=== PATIENT | female | born 1955 | race Caucasian/White ===

== ENCOUNTER 2018-08-02 14:55 | Emergency (ER) | payer MEDICARE, OTHER ==
[~2018-08-02] VITALS: Ht 172.7 cm; Wt 127.9 kg
--- OUTSIDE RECORDS SUMMARY | 2018-08-02 15:02 | XMS REPORT | CCD ---
Author Author Lorna Solis Organization Lorna Solis MD, [facility] Address [address] [place] [address] Phone Care Team Providers Care Property Management Accountant Name Role Phone PP Unavailable CCM Unavailable Summary Purpose Interface Exchange Insurance Providers Payer name Policy type / Coverage type Covered democrat ID Effective Begin Date Effective End Date [employer] PPO Medicare Part B [id number] Unknown Family history Father Diagnosis Age At Onset kidney disease Unknown Diabetes mellitus Type 2 Unknown Hypertension Unknown Mother Diagnosis Age At Onset Coronary Artery Disease Unknown Cancer Unknown Stroke Unknown Diabetes mellitus Type 2 Unknown Social History Social History Element Codes Description Effective Dates Marital status Unknown Han 04/12/2018 Number of children Unknown 4 04/12/2018 Employment Unknown Currently unemployed 04/12/[address]: 226[address]993 Never smoker 04/12/[address]: 245360601 Never drinks alcohol 04/12/2018 Allergies, Adverse Reactions, Alerts Substance Reaction Codes Entered Date Inactivated Date Status amoxicillin RxNorm: 723 04/12/2018 No Inactive Date Active bactrim RxNorm: 948888 04/12/2018 No Inactive Date Active * NO KNOWN DRUG ALLERGIES Unknown 04/12/2018 No Inactive Date Active ciprofloxacin RxNorm: 70417 04/12/2018 No Inactive Date Active Levaquin RxNorm: 39927 04/12/2018 No Inactive Date Active SULFA (SULFONAMIDE ANTIBIOTICS) Unknown 04/12/2018 No Inactive Date Active Past Medical History Illness Codes Condition Status Onset Date Resolved Date Essential (primary) hypertension ICD-9: 401.1 ICD-10: I10 Active 04/12/2018 Unknown Pain in left finger(s) ICD-9: 729.5 ICD-10: M79.645 Active 04/12/2018 Unknown Pain in right finger(s) ICD-9: 729.5 ICD-10: M79.644 Active 04/12/2018 Unknown Atrophy of thyroid (acquired) ICD-9: 244.8 ICD-10: E03.4 Active 04/12/2018 Unknown Mixed hyperlipidemia ICD-9: 272.2 ICD-10: E78.2 Active 04/12/2018 Unknown 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 Active 04/12/2018 Unknown Problems Condition Codes Effective Dates Condition Status Essential (primary) hypertension ICD-9: 401.1 ICD-10: I10 04/12/2018 Active Pain in left finger(s) ICD-9: 729.5 ICD-10: M79.645 04/12/2018 Active Pain in right finger(s) ICD-9: 729.5 ICD-10: M79.644 04/12/2018 Active Atrophy of thyroid (acquired) ICD-9: 244.8 ICD-10: E03.4 04/12/2018 Active Mixed hyperlipidemia ICD-9: 272.2 ICD-10: E78.2 04/12/2018 Active 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 04/12/2018 Active Medications Medication Codes Instructions Start Date Stop Date Status Fill Instructions lisinopril 20 mg-hydrochlorothiazide 12.5 mg tablet RxNorm: 190992 1 Tablet(s) PO BID 06/14/2018 06/08/2019 Active fluorouracil 5 % topical cream RxNorm: 014678 1 Application TOP BID 06/14/2018 06/23/2018 Active levothyroxine 175 mcg tablet RxNorm: 651336 1 Tablet(s) PO every other day wednesday/ wednesday/sat/sun 04/12/2018 04/06/2019 Active montelukast 10 mg tablet RxNorm: 117615 1 Tablet(s) PO daily 04/06/2019 Active ibuprofen 600 mg tablet RxNorm: 813013 1 Tablet(s) PO TID 04/1204/06/2019 Active levothyroxine 150 mcg tablet RxNorm: 171646 1 Tablet(s) PO TIW 04/12/2018 04/06/2019 Active amlodipine 5 mg tablet RxNorm: 444963 1 Tablet(s) PO daily 06/201804/06/2019 Active allopurinol 300 mg tablet RxNorm: 398234 1 Tablet(s) PO daily 04/12/2018 04/06/2019 Active ibuprofen 600 mg tablet RxNorm: 245714 1 Tablet(s) PO TID 04/1204/11/2018 Inactive lisinopril 20 mg-hydrochlorothiazide 12.5 mg tablet RxNorm: 796216 1 Tablet(s) PO daily 04/12/2018 04/11/2018 Inactive lisinopril 20 mg-hydrochlorothiazide 12.5 mg tablet RxNorm: 849938 1 Tablet(s) PO daily 04/12/2018 06/13/2018 Inactive amlodipine 5 mg tablet RxNorm: 741195 1 Tablet(s) PO daily 06/201804/11/2018 Inactive allopurinol 300 mg tablet RxNorm: 797166 1 Tablet(s) PO daily 04/12/2018 04/11/2018 Inactive garlic 1,000 mg capsule RxNorm: 530029 1 Capsule(s) PO daily No Start Date Active Hair,Skin,Nails with Biotin 7.5 mg-7.5 unit-1,250 mcg chewable tablet RxNorm: 1 Tablet(s) PO daily No Start Date Active Baby Aspirin 81 mg chewable tablet RxNorm: 868566 3 Tablet(s) PO daily No Start Date Active levothyroxine 150 mcg tablet RxNorm: 816400 wed and 175 wed sun Tablet(s) PO No Start Date 04/11/2018 Inactive montelukast 10 mg tablet RxNorm: 065675 1 Tablet(s) PO daily No Start Date 04/11/2018 Inactive Fish Oil 1,000 mg capsule RxNorm: 4 Capsule(s) PO daily No Start Date 04/11/2018 Inactive Medication Administered No Medication Administered data Immunizations Vaccine Codes Date Status Tetanus, Diptheria, Pertussis CVX: 113 completed Tetanus/Diptheria CVX: 113 05/19/2017 completed Assessments Condition Codes Effective Dates Pain in right finger(s) ICD-10: M79.644 ICD-9: 729.5 06/14/2018 Essential (primary) hypertension ICD-10: I10 ICD-9: 401.1 06/14/2018 Pain in left finger(s) ICD-10: M79.645 ICD-9: 729.5 06/14/2018 Mixed hyperlipidemia ICD-10: E78.2 ICD-9: 272.2 04/12/2018 Atrophy of thyroid (acquired) ICD-10: E03.4 ICD-9: 244.8 04/12/2018 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 ICD-9: 277.2 04/12/2018 Reason For Visit Reason For Visit Effective Dates Notes hypertension 06/14/2018 urinary urgency 04/12/2018 Results Observation Observation Code Item Item Code Result Date Free T4 Mlf359 FREE T4 1.13 ng/dL 04/12/2018 Comp Metabolic Lzz870 NA 141 mEq/L 04/12/2018 Comp Metabolic Ikk692 K 4.4 mEq/L 04/12/2018 Comp Metabolic Nfy812 CL 103 mEq/L 04/12/2018 Comp Metabolic Qxp309 CO2 31.0 mEq/L 04/12/2018 Comp Metabolic Slc287 ANION GAP 11 04/12/2018 Comp Metabolic Vjn772 GLUCOSE 98 mg/dL 04/12/2018 Comp Metabolic Ngi087 Creat 0.7 mg/dL 04/12/2018 Comp Metabolic Rlb706 eGFR 84 ml/min/1.73m2 04/12/2018 Comp Metabolic Itg035 BUN 17 mg/dL 04/12/2018 Comp Metabolic Eiv790 B/C Ratio 23.0 Ratio 04/12/2018 Comp Metabolic Ghp403 CALCIUM 10.0 mg/dL 04/12/2018 Comp Metabolic Gxm118 ALK PHOS 70 U/L 04/12/2018 Comp Metabolic Nzz799 AST(SGOT) 40 U/L 04/12/2018 Comp Metabolic Aec474 ALT(SGPT) 48 U/L 04/12/2018 Comp Metabolic Trf446 BILI T 0.4 mg/dL 04/12/2018 Comp Metabolic Ykx313 ALBUMIN 4.2 g/dL 04/12/2018 Comp Metabolic Ixk055 TPRO 6.9 g/dL 04/12/2018 Comp Metabolic Kbn233 GLOB 2.7 g/dL 04/12/2018 Comp Metabolic Tib897 A/G Ratio 1.6 Ratio 04/12/2018 Comp Metabolic Pfm520 Osmo 283 mOsmo 04/12/2018 Uric Acid Ord77 Uric A 5.7 mg/dL 04/12/2018 Cbc With Differential Ord2 WBC 5.20 K/ul 04/12/2018 Cbc With Differential Ord2 RBC 4.19 M/ul 04/12/2018 Cbc With Differential Ord2 HGB 12.3 g/dl 04/12/2018 Cbc With Differential Ord2 Neut% 45.8 % 04/12/2018 Cbc With Differential Ord2 HCT 38.4 % 04/12/2018 Cbc With Differential Ord2 MCV 91.6 fl 04/12/2018 Cbc With Differential Ord2 Lymph% 38.8 % 04/12/2018 Cbc With Differential Ord2 MCH 29.4 pg 04/12/2018 Cbc With Differential Ord2 Fountain% 12.3 % 04/12/2018 Cbc With Differential Ord2 MCHC 32.0 pg 04/12/2018 Cbc With Differential Ord2 Eos% 2.5 % 04/12/2018 Cbc With Differential Ord2 PLT 304 K/ul 04/12/2018 Cbc With Differential Ord2 Baso% 0.6 % 04/12/2018 Cbc With Differential Ord2 RDW 15.7 % 04/12/2018 Cbc With Differential Ord2 Neut ABS# 2.38 K/ul 04/12/2018 Cbc With Differential Ord2 Lymph ABS# 2.02 K/ul 04/12/2018 Cbc With Differential Ord2 Fountain ABS# 0.6 K/ul 04/12/2018 Cbc With Differential Ord2 Eos ABS# 0.1 K/ul 04/12/2018 Cbc With Differential Ord2 Baso ABS# 0.0 K/ul 04/12/2018 Tsh Ord6 TSH (3rd IS) 0.83 uIU/mL 04/12/2018 Lipid Ord30 CHOL 188 mg/dL 04/12/2018 Lipid Ord30 HDL 45.0 mg/dl 04/12/2018 Lipid Ord30 TRIG 174 mg/dL 04/12/2018 Lipid Ord30 LDL 108 mg/dL 04/12/2018 Lipid Ord30 C/HDL 4.2 Ratio 04/12/2018 Review of Systems System Result Effective Dates Constitutional No recent illness 2017 Constitutional No chills 06/14/2018 Constitutional fatigue 06/14/2018 Constitutional No fever 06/14/2018 Constitutional No insomnia 06/14/2018 Constitutional No malaise 06/14/2018 Constitutional obesity 06/14/2018 Eyes No vision change 06/14/2018 Ears/Nose/Throat/Neck No dizziness 2017 Ears/Nose/Throat/Neck No dysphagia 2017 Ears/Nose/Throat/Neck No headache 2017 Ears/Nose/Throat/Neck No hearing loss Ears/Nose/Throat/Neck nasal allergies Ears/Nose/Throat/Neck No sore throat Ears/Nose/Throat/Neck sinus congestion Cardiovascular No chest pain/pressure Cardiovascular No dyspnea 06/14/2018 Cardiovascular No edema 06/14/2018 Cardiovascular No exercise intolerance Cardiovascular No fatigue 06/14/2018 Cardiovascular No near-syncope/dizziness 06/14/2018 Respiratory No chest tightness 2017 Respiratory No cough 06/14/2018 Respiratory No dyspnea 06/14/2018 Respiratory No pedal edema 06/14/2018 Gastrointestinal No abdominal pain 2017 Gastrointestinal No constipation 2017 Gastrointestinal No diarrhea 06/14/2018 Gastrointestinal No gastroesophageal reflux 06/14/2018 Gastrointestinal No nausea 06/14/2018 Gastrointestinal No vomiting 06/14/2018 Genitourinary/Nephrology No dysuria 06/14 Genitourinary/Nephrology No nocturia Genitourinary/Nephrology urinary urgency 06/14/2018 Genitourinary/Nephrology urinary frequency 06/14/2018 Genitourinary/Nephrology No urinary incontinence 06/14/2018 Musculoskeletal stiffness 06/14/2018 Musculoskeletal swelling 06/14/2018 Musculoskeletal arthralgia(s) 06/14/2018 Musculoskeletal muscle weakness 2017 Musculoskeletal No myalgias 06/14/2018 Dermatologic No rash 06/14/2018 Dermatologic No sores 06/14/2018 Neurologic No dizziness 06/14/2018 Neurologic No headache 06/14/2018 Neurologic No neck pain 06/14/2018 Neurologic No syncope 06/14/2018 Psychiatric No anxiety 06/14/2018 Psychiatric No depression 06/14/2018 Constitutional No recent illness 2017 Constitutional No chills 04/12/2018 Constitutional fatigue 04/12/2018 Constitutional No fever 04/12/2018 Constitutional No insomnia 04/12/2018 Constitutional No malaise 04/12/2018 Eyes No vision change 04/12/2018 Ears/Nose/Throat/Neck No dizziness 2017 Ears/Nose/Throat/Neck No dysphagia 2017 Ears/Nose/Throat/Neck No headache 2017 Ears/Nose/Throat/Neck No hearing loss 06/2018 Ears/Nose/Throat/Neck nasal allergies 06/2018 Ears/Nose/Throat/Neck No sore throat 06/2018 Ears/Nose/Throat/Neck sinus congestion Cardiovascular No chest pain/pressure 06/2018 Cardiovascular No dyspnea 04/12/2018 Cardiovascular No edema 04/12/2018 Cardiovascular No exercise intolerance Cardiovascular No fatigue 04/12/2018 Cardiovascular No near-syncope/dizziness 04/12/2018 Respiratory No chest tightness 2017 Respiratory No cough 04/12/2018 Respiratory No dyspnea 04/12/2018 Respiratory No pedal edema 04/12/2018 Gastrointestinal No abdominal pain 2017 Gastrointestinal No constipation 2017 Gastrointestinal No diarrhea 04/12/2018 Gastrointestinal No gastroesophageal reflux 04/12/2018 Gastrointestinal No nausea 04/12/2018 Gastrointestinal No vomiting 04/12/2018 Genitourinary/Nephrology No dysuria 04/12 Genitourinary/Nephrology No nocturia 06/2018 Genitourinary/Nephrology No urinary incontinence 04/12/2018 Musculoskeletal stiffness 04/12/2018 Musculoskeletal swelling 04/12/2018 Musculoskeletal muscle weakness 2017 Musculoskeletal No myalgias 04/12/2018 Dermatologic No rash 04/12/2018 Dermatologic No sores 04/12/2018 Neurologic No dizziness 04/12/2018 Neurologic No headache 04/12/2018 Neurologic No neck pain 04/12/2018 Neurologic No syncope 04/12/2018 Psychiatric No anxiety 04/12/2018 Psychiatric No depression 04/12/2018 Musculoskeletal arthralgia(s) 04/12/2018 Constitutional obesity 04/12/2018 Genitourinary/Nephrology urinary frequency 04/12/2018 Genitourinary/Nephrology urinary urgency 04/12/2018 Physical Exam Exam Name System Name Item Name Status Result Effective Dates Notes Full Exam - General 1994 Constitutional general appearance Development: well developed 06/14/2018 None Full Exam - General 1994 Constitutional general appearance Development: appears stated age 1106/14/2018 None Full Exam - General 1994 Constitutional general appearance Hygiene/Attention to Grooming: good hygiene 06/14/2018 None Full Exam - General 1994 Eyes conjunctiva /eyelids Overall: conjunctiva clear 06/14/2018 None Full Exam - General 1994 Eyes conjunctiva /eyelids Overall: cornea clear 06/14/2018 None Full Exam - General 1994 Eyes conjunctiva /eyelids Overall: eyelids normal 06/14/2018 None Full Exam - General 1994 Eyes pupils and irises Overall: pupils equal, round, reactive to light and accomodation 06/14/2018 None Full Exam - General 1994 Ears/Nose/Throat otoscopic exam Overall: external auditory canals clear 06/14/2018 None Full Exam - General 1994 Ears/Nose/Throat otoscopic exam Overall: tympanic membranes clear 06/14/2018 None Full Exam - General 1994 Ears/Nose/Throat lips/teeth/gingiva Overall: benign lips 06/14/2018 None Full Exam - General 1994 Ears/Nose/Throat lips/teeth/gingiva Overall: normal dentition 06/14/2018 None Full Exam - General 1994 Ears/Nose/Throat oral cavity/pharynx/larynx Overall: oral mucosa clear 06/14/2018 None Full Exam - General 1994 Ears/Nose/Throat oral cavity/pharynx/larynx Overall: oropharyngeal mucosa clear 06/14/2018 None Full Exam - General 1994 Ears/Nose/Throat oral cavity/pharynx/larynx Overall: hypopharynx benign 06/14/2018 None Full Exam - General 1994 Ears/Nose/Throat oral cavity/pharynx/larynx Overall: no masses 06/14/2018 None Full Exam - General 1994 Respiratory auscultation Overall: breath sounds clear bilaterally 06/14/2018 None Full Exam - General 1994 Respiratory respiratory effort/rhythm Overall: no retractions 06/14/2018 None Full Exam - General 1994 Respiratory respiratory effort/rhythm Overall: normal rate 06/14/2018 None Full Exam - General 1994 Cardiovascular extremities Overall: no clubbing 06/14/2018 None Full Exam - General 1994 Cardiovascular auscultation of heart Overall: regular rate 06/14/2018 None Full Exam - General 1994 Cardiovascular auscultation of heart Overall: normal heart sounds 06/14/2018 None Full Exam - General 1994 Abdomen abdominal exam Overall: no tenderness 06/14/2018 None Full Exam - General 1994 Abdomen abdominal exam Overall: normal bowel sounds 06/14/2018 None Full Exam - General 1994 Lymphatic neck nodes Overall: anterior cervical chain benign 06/14/2018 None Full Exam - General 1994 Lymphatic neck nodes Overall: posterior cervical chain benign 06/14/2018 None Full Exam - General 1994 Musculoskeletal upper extremity Inspection - carpals: swelling 06/14/2018 None Full Exam - General 1994 Musculoskeletal spine, ribs and pelvis Overall: spine benign 06/14/2018 None Full Exam - General 1994 Musculoskeletal spine, ribs and pelvis Overall: sacroiliac joint benign 06/14/2018 None Full Exam - General 1994 Musculoskeletal spine, ribs and pelvis Overall: good posture 06/14/2018 None Full Exam - General 1994 Musculoskeletal head and neck Overall: head atraumatic 06/14/2018 None Full Exam - General 1994 Musculoskeletal head and neck Overall: cervical spine benign 06/14/2018 None Full Exam - General 1994 Integument inspection of skin Overall: few scattered moles, no gross abnormalities 06/14/2018 None Full Exam - General 1994 Neurologic deep tendon reflexes Overall: deep tendon reflexes intact 06/14/2018 None Full Exam - General 1994 Neurologic cranial nerves Overall: crainial nerves 2 - 12 grossly intact 06/14/2018 None Full Exam - General 1994 Psychiatric orientation/consciousness Overall: oriented to person, place and time 06/14/2018 None Full Exam - General 1994 Psychiatric mood and affect Overall: normal mood and affect 06/14/2018 None Full Exam - General 1994 Constitutional general appearance Development: well developed 04/12/2018 None Full Exam - General 1994 Constitutional general appearance Development: appears stated age 0904/12/2018 None Full Exam - General 1994 Constitutional general appearance Hygiene/Attention to Grooming: good hygiene 04/12/2018 None Full Exam - General 1994 Eyes conjunctiva /eyelids Overall: conjunctiva clear 04/12/2018 None Full Exam - General 1994 Eyes conjunctiva /eyelids Overall: cornea clear 04/12/2018 None Full Exam - General 1994 Eyes conjunctiva /eyelids Overall: eyelids normal 04/12/2018 None Full Exam - General 1994 Eyes pupils and irises Overall: pupils equal, round, reactive to light and accomodation 04/12/2018 None Full Exam - General 1994 Ears/Nose/Throat otoscopic exam Overall: external auditory canals clear 04/12/2018 None Full Exam - General 1994 Ears/Nose/Throat otoscopic exam Overall: tympanic membranes clear 04/12/2018 None Full Exam - General 1994 Ears/Nose/Throat lips/teeth/gingiva Overall: benign lips 04/12/2018 None Full Exam - General 1994 Ears/Nose/Throat lips/teeth/gingiva Overall: normal dentition 04/12/2018 None Full Exam - General 1994 Ears/Nose/Throat oral cavity/pharynx/larynx Overall: oral mucosa clear 04/12/2018 None Full Exam - General 1994 Ears/Nose/Throat oral cavity/pharynx/larynx Overall: oropharyngeal mucosa clear 04/12/2018 None Full Exam - General 1994 Ears/Nose/Throat oral cavity/pharynx/larynx Overall: hypopharynx benign 04/12/2018 None Full Exam - General 1994 Ears/Nose/Throat oral cavity/pharynx/larynx Overall: no masses 04/12/2018 None Full Exam - General 1994 Respiratory auscultation Overall: breath sounds clear bilaterally 04/12/2018 None Full Exam - General 1994 Respiratory respiratory effort/rhythm Overall: no retractions 04/12/2018 None Full Exam - General 1994 Respiratory respiratory effort/rhythm Overall: normal rate 04/12/2018 None Full Exam - General 1994 Cardiovascular extremities Overall: no clubbing 04/12/2018 None Full Exam - General 1994 Cardiovascular auscultation of heart Overall: regular rate 04/12/2018 None Full Exam - General 1994 Cardiovascular auscultation of heart Overall: normal heart sounds 04/12/2018 None Full Exam - General 1994 Abdomen abdominal exam Overall: no tenderness 04/12/2018 None Full Exam - General 1994 Abdomen abdominal exam Overall: normal bowel sounds 04/12/2018 None Full Exam - General 1994 Lymphatic neck nodes Overall: anterior cervical chain benign 04/12/2018 None Full Exam - General 1994 Lymphatic neck nodes Overall: posterior cervical chain benign 04/12/2018 None Full Exam - General 1994 Musculoskeletal spine, ribs and pelvis Overall: spine benign 04/12/2018 None Full Exam - General 1994 Musculoskeletal spine, ribs and pelvis Overall: sacroiliac joint benign 04/12/2018 None Full Exam - General 1994 Musculoskeletal spine, ribs and pelvis Overall: good posture 04/12/2018 None Full Exam - General 1994 Musculoskeletal head and neck Overall: head atraumatic 04/12/2018 None Full Exam - General 1994 Musculoskeletal head and neck Overall: cervical spine benign 04/12/2018 None Full Exam - General 1994 Integument inspection of skin Overall: few scattered moles, no gross abnormalities 04/12/2018 None Full Exam - General 1994 Neurologic deep tendon reflexes Overall: deep tendon reflexes intact 04/12/2018 None Full Exam - General 1994 Neurologic cranial nerves Overall: crainial nerves 2 - 12 grossly intact 04/12/2018 None Full Exam - General 1994 Psychiatric orientation/consciousness Overall: oriented to person, place and time 04/12/2018 None Full Exam - General 1994 Psychiatric mood and affect Overall: normal mood and affect 04/12/2018 None Full Exam - General 1994 Musculoskeletal upper extremity Inspection - carpals: swelling 04/12/2018 None Procedures No Procedures data Vital Signs Date Vital 06/14/2018 Blood Pressure 1: 136/84 Code : 8480-6 BMI: 43.8 Code : 72709-3 Heart Rate 1 : 73 bpm Height: 5'8" SpO2: 96% Weight: 288 lbs 04/12/2018 Blood Pressure 1: 138/86 Code : 8480-6 BMI: 43.0 Code : 81091-0 Heart Rate 1 : 61 bpm Height: 5'8" SpO2: 97% Weight: 283 lbs Functional Status No Functional Status data History of Present Illness Symptom Name Status Result Effective Date Notes hypertension Onset and Resolution ongoing 06/14/2018 None hypertension Onset of Symptom during adulthood 06/14/2018 None gout Location Right Hand 06/14/2018 None gout Location Left Hand 06/14/2018 None gout Quality aching None urinary urgency Quality constant 04/12/2018 None urinary urgency Onset of Symptom 1 months ago 04/12/2018 None urinary frequency Quality constant 04/12/2018 None urinary frequency Onset and Resolution sudden in onset 04/12/2018 None Advance Directives No Advance Directive data Encounters Encounter Performer Location Codes Date ([id number] EST. 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 Pt has been encouraged to exercise daily. The pt has been advised to call the office if there are any acute concerns about change in blood pressure readings at home. Hand pain - referral to Dr. Oliveira for bilateral hand pain/thumb pain. 06/14/2018 Patient Education: Patient Medication Summary Completed 06/14/2018 Care Plan: Referral Order SNOMED-CT : [id number] Pending 06/14/2018 Appointment: Lorna Solis WPtel: [phone] [facility] New Patient 04/19/2018 Visit Plan: Hypertension - well controlled - continue with current medications, continue with no added salt diet. Pt has been encouraged to exercise daily. The pt has been advised to call the office if there are any acute concerns about change in blood pressure readings at home. Hypothyroidism - pt with chronic hypothyroidism, continue with current medication, will monitor pt to signs or symptoms of lack of adequate supplementation. Pt is to continue with current dose of medication unless directed otherwise. Check labs at regular intervals q 3 months or q 6 months based on previous levels of control. Hyperlipidemia - cut back on fat in diet - stop fish oil, monitor symptoms. Gout- discussed with pt - need to increase veggies in diet, cut back on pork, stop fish oil, cut out tuna, and check uric acid level now and again in 2 months once she has stopped the fish oil and increased healthy food choices - Gout hand out given to patient today. 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 Hypertension - well controlled - continue with current medications, continue with no added salt diet. Pt has been encouraged to exercise daily. The pt has been advised to call the office if there are any acute concerns about change in blood pressure readings at home. Hypothyroidism - pt with chronic hypothyroidism, continue with current medication, will monitor pt to signs or symptoms of lack of adequate supplementation. Pt is to continue with current dose of medication unless directed otherwise. Check labs at regular intervals q 3 months or q 6 months based on previous levels of control. Hyperlipidemia - cut back on fat in diet - stop fish oil, monitor symptoms. Gout- discussed with pt - need to increase veggies in diet, cut back on pork, stop fish oil, cut out tuna, and check uric acid level now and again in 2 months once she has stopped the fish oil and increased healthy food choices - Gout hand out given to patient today. . Hypertension - well controlled - continue with current medications, continue with no added salt diet. Pt has been encouraged to exercise daily. The pt has been advised to call the office if there are any acute concerns about change in blood pressure readings at home. Hand pain - referral to Dr. lOiveira for bilateral hand pain/thumb pain.
[2018-08-02] MEDS ORDERED: OMG1KC PO (15:24)
[2018-08-02] MEDS ORDERED: LEVO175T5 PO (15:24)
[2018-08-02] MEDS ORDERED: LISI1TAB8 PO ×2 (15:24)
[2018-08-02] MEDS ORDERED: LEVO150T6 PO (15:24)
[2018-08-02] MEDS ORDERED: ASPI-586 PO (15:24)
[2018-08-02] MEDS ORDERED: ALLO300T2 PO (15:24)
[2018-08-02] MEDS ORDERED: GARL1TAB2 PO (15:24)
--- NOTE | 2018-08-02 16:03 | ED Cough/URI ---
General Chief Complaint: Cough/Cold/Flu Symptoms Stated Complaint: FLU SYMPTOMS Nursing Triage Note: PT PRESENTS TO ED WITH COMPLAINTS OF SOA/COUGH/COLD/FLU S/S SINCE 07/28/18. REPORTS WAS IN [place] TO SEE RELATIVES AND WAS EXPOSED TO FLU POS RELATIVE. Source: patient Exam Limitations: no limitations History of Present Illness Date Seen by Provider: Aug 02, 2018 Time Seen by Provider: 16:03 Initial Comments 63 yo female patient presents with c/o cough, chest congestion, wheezing, slight sore throat, nasal congestion, and rhinorrhea beginning 07/28/18. she did develop a fever last night. Patient does have a history of asthma as a child. She reports she was exposed to the flu 1 wk ago and while in [place] visiting family. She denies getting a flu vaccination this year. Timing/Duration: getting worse Severity/Quality: productive cough (clear) Prior Episodes/Possible Cause: no prior episodes Modifying Factors: Worse With Coughing Allergies and Home Medications Allergies Coded Allergies: ciprofloxacin (Verified Allergy, Unknown, 08/02/18) levofloxacin (Verified Allergy, Unknown, 08/02/18) losartan (Verified Allergy, Unknown, 08/02/18) sulfamethoxazole (Verified Allergy, Unknown, 08/02/18) trimethoprim (Verified Allergy, Unknown, 08/02/18) Home Medications Albuterol Sulfate 18 Gm Hfa.aer.ad, 2 PUFF INH Q4H PRN for WHEEZING Prescribed by: KIRBY TORO on 08/02/181623 Lisinopril/Hydrochlorothiazide 1 Each Tablet, 1 EACH PO DAILY, (Reported) Lisinopril/Hydrochlorothiazide 1 Each Tablet, 1 EACH PO BID, (Reported) Ondansetron 8 Mg Tab.rapdis, 8 MG PO Q6H PRN for NAUSEA/VOMITING Prescribed by: KIRBY TORO on 08/02/18 162 Oseltamivir Phosphate 75 Mg Cap, 75 MG PO BID Prescribed by: KIRBY TORO on 08/02/181623 Prednisone 20 Mg Tab, 40 MG PO DAILY Prescribed by: KIRBY TORO on 08/02/181623 Patient Home Medication List Home Medication List Reviewed: Yes Review of Systems Review of Systems Constitutional: chills, fever, malaise EENTM: nose congestion, throat pain; No ear discharge, No ear pain, No mouth pain, No throat swelling Respiratory: see HPI, cough, phlegm, short of breath, wheezing Cardiovascular: no symptoms reported Gastrointestinal: No abdominal pain, No constipation, No diarrhea; loss of appetite, nausea; No vomiting Genitourinary: no symptoms reported Musculoskeletal: other (generalized body aches) Skin: no symptoms reported Psychiatric/Neurological: No Symptoms Reported All Other Systems Reviewed Negative Unless Noted: Yes (Negative excepted noted.) Past Ceziwki-Vwrzco-Yhkfpw Hx Past Med/Social Hx: Reviewed Nursing Past Med/Soc Hx Patient Social History Alcohol Use: Denies Use Recreational Drug Use: No Smoking Status: Never a Smoker Recent Foreign Travel: No Contact w/Someone Who Travel: No Recent Infectious Disease Expo: No Recent Hopitalizations: No Past Medical History Surgeries: Yes Hysterectomy Respiratory: Yes Asthma (as a child) Cardiac: No Neurological: No Genitourinary: No Gastrointestinal: No Musculoskeletal: No Endocrine: Yes Hypothyroidsim HEENT: No Cancer: No Psychosocial: No Integumentary: No Family Medical History Reviewed Nursing Family Hx No Pertinent Family Hx Physical Exam Vital Signs - First Documented 08/02/18 08/02/18 15:12 16:41 Temp 98.8 Pulse 75 Resp 20 B/P (MAP) 148/80 (102) Pulse Ox 95 O2 Delivery Room Air Capillary Refill : Less Than 3 Seconds Height: 5'8.00" Weight: 282lbs. oz. 127.619393qc; BMI Method:Stated General Appearance: WD/WN, no apparent distress HEENT: PERRL/EOMI, TMs normal, pharyngeal erythema, other ((+) nasal congestion with mild swelling of the turbinates.) Neck: non-tender, full range of motion, supple, lymphadenopathy (R), lymphadenopathy (L) Respiratory: no respiratory distress, no accessory muscle use, other (mildly coarse BS in all lung miller on expiration.) Cardiovascular: normal peripheral pulses, regular rate, rhythm, no edema, no murmur Gastrointestinal: normal bowel sounds, non tender, soft; No distended Extremities: no pedal edema, normal capillary refill Neurologic/Psychiatric: alert, normal mood/affect, oriented x 3 Skin: normal color, warm/dry Progress/Results/Core Measures Suspected Sepsis Recent Fever Within 48 Hours: Yes Infection Criteria Present: Suspected New Infection New/Unexplained Altered Menta: No Sepsis Screen: No Definite Risk SIRS Temperature:98.8 Pulse: 75 Respiratory Rate: 20 Blood Pressure 148 /80 Mean: 102 Results/Orders Micro Results Microbiology 08/02/18 Influenza Types A,B Antigen (LATASHA) - Final, Complete My Orders Orders - KIRBY TORO Influenza A And B Antigens (08/02/18 15:22) Albuterol/Ipra Inhalation Soln (Duoneb I (08/02/18 16:30) Svn Small Volume Nebulizer (08/02/18 16:18) Ondansetron Oral Dissolve Tab (Zofran (08/02/18 16:36) Medications Given in ED Current Medications Medications Dose Ordered Sig/Georgie Route Start Time Stop Time Status Last Admin Dose Admin Albuterol/ Ipratropium 3 ml ONCE ONCE INH 08/02/18 16:30 08/02/18 16:31 DC 08/02/18 16:41 3 ML Vital Signs/I&O 08/02/18 08/02/18 08/02/18 15:12 16:41 17:32 Temp 98.8 Pulse 75 77 Resp 20 16 B/P (MAP) 148/80 (102) 142/91 (108) Pulse Ox 95 95 98 O2 Delivery Room Air Room Air Capillary Refill : Less Than 3 Seconds Blood Pressure Mean: 102 Departure Communication (Admissions) patient seen and evaluated. patient given a duoneb treatment with improvement in breath sounds bilaterally. lab findings discussed with the patient. plan for dsch to home. Impression Primary Impression: Influenza A Disposition: 01 HOME, SELF-CARE Condition: Improved Departure-Patient Inst. Decision time for Depature: 16:19 Referrals: IRMA SOLIS MD (PCP/Family) Primary Care Physician Patient Instructions: Flu, Adult (DC) Add. Discharge Instructions: All discharge instructions reviewed with patient and/or family. Voiced understanding. Medications as instructed. Tylenol extra strength over-the- counter as directed for fever or pain. Ibuprofen 800 mg by mouth every 8 hours as needed for pain or fever. Push fluids. Xbfq-lxf-[id number] decongestants and antihistamines as needed for symptoms. Follow-up with Dr. Solis for recheck as outpatient. Call for appointment time tomorrow morning. Return to the emergency department for worsened symptoms or any other concerns. Scripts Ondansetron (Ondansetron Odt) 8 Mg Tab.rapdis 8 MG PO Q6H PRN for NAUSEA/VOMITING, #10 TAB 1 Refill Prov: KIRBY TORO 08/02/18 Prednisone (Prednisone) 20 Mg Tab 40 MG PO DAILY, #10 TAB 0 Refills Prov: KIRBY TORO 08/02/18 Albuterol Sulfate (Ventolin Hfa) 18 Gm Hfa.aer.ad 2 PUFF INH Q4H PRN for WHEEZING, #1 EA 0 Refills Prov: KIRBY TORO 08/02/18 Oseltamivir Phosphate (Tamiflu) 75 Mg Cap 75 MG PO BID, #10 CAP 0 Refills Prov: KIRBY TORO 08/02/18 KIRBY TORO Aug 02, 2018 16:03
[2018-08-02] MEDS ORDERED: OSLT75C PO (16:24)
[2018-08-02] MEDS ORDERED: ONDA8TAB13 PO (16:24)
[2018-08-02] MEDS ORDERED: ALBU18HF2 INH (16:24)
[2018-08-02] MEDS ORDERED: PRD20T PO (16:24)
[2018-08-02] MEDS ORDERED: RT-ALBUTEROL/IPRATROPIUM 3 ML (DUONEB) VIAL INH ONE (16:30)
--- NOTE | 2018-08-02 16:35 | NUR ---
PT NOTIFIED RT WOULD BE HERE SOON FOR A BREATHING [place].
[2018-08-02] MEDS ORDERED: ONDANSETRON 4 MG (ZOFRAN) ORAL DISSOLVE TAB SL STA (16:36)
--- NOTE | 2018-08-02 16:38 | NUR ---
RT IN ROOM AT THIS TIME.
[2018-08-02 17:32] VITALS: BP 142/91
== END 2018-08-02 17:32 | disposition home or self-care (01) ==
LOC: ER 14:58
DX: J10.1 Influenza due to other identified influenza virus with other respiratory manifestations (principal); J45.909 Unspecified asthma, uncomplicated; E03.9 Hypothyroidism, unspecified; Z88.0 Allergy status to penicillin; Z88.6 Allergy status to analgesic agent; Z79.51 Long term (current) use of inhaled steroids; Z90.710 Acquired absence of both cervix and uterus; Z79.52 Long term (current) use of systemic steroids
CPT/HCPCS: 87804; 94640

== ENCOUNTER → 2019-12-15 | Outpatient (CLI) | payer MEDICARE ==
[~2019-12-15] MED LIST: ALBU18HF2 INH; ALLO300T2 PO; ASPI-586 PO; GARL1TAB2 PO; LEVO150T6 PO; LEVO175T5 PO; LISI1TAB25 PO; OMG1KC PO; ONDA8TAB13 PO; OSLT75C PO; PRD20T PO
== END ==
LOC: LABNPT 14:30
PROVIDERS: ATTEND Family Medicine
DX: R50.9 Fever, unspecified (principal); R06.02 Shortness of breath
CPT/HCPCS: 87430; 87635; 87804

== ENCOUNTER 2019-12-17 19:36 | Emergency (ER) | payer MEDICARE ==
[~2019-12-17] VITALS: Ht 172 cm; Wt 130.0 kg
--- OUTSIDE RECORDS SUMMARY | 2019-12-17 19:44 | XMS REPORT | CCD ---
Author Author Nancy Solis Organization Lorna Solis MD, [facility] Address [address] [place] [address] Phone Care Team Providers Care Plane Captain Name Role Phone PP Unavailable CCM Unavailable Summary Purpose Interface Exchange Insurance Providers Payer name Policy type / Coverage type Covered democrat ID Effective Begin Date Effective End Date [employer] PPO Medicare Part B [id number] 2018 Unknown Family history Father Diagnosis Age At Onset kidney disease Unknown Diabetes mellitus Type 2 Unknown Hypertension Unknown Mother Diagnosis Age At Onset Coronary Artery Disease Unknown Cancer Unknown Stroke Unknown Diabetes mellitus Type 2 Unknown Social History Social History Element Codes Description Effective Dates Marital status Unknown Leif Short 04/12/2018 Number of children Unknown 4 04/12/2018 Employment Unknown Luis Felipe ntrosy unemployed 04/12/[address]: 566274428 Never smoker 04/12/[address]: 797951012 Never drinks alcohol 04/12/2018 Allergies, Adverse Reactions, Alerts Substance Reaction Codes Entered Date Inactivated Date Status amoxicillin RxNorm: 723 04/12/2018 N o Inactive Date Active bactrim RxNorm: 040545 04/12/2018 No Inactive Date Active ciprofloxacin RxNorm: 48989 11/28/2018 No Inactive Date Active Levaquin RxNorm: 29377 04/12/2018 No Inactive Date Active SULFA (SULFONAMIDE A NTIBIOTICS) Unknown 04/12/2018 No Inactive Date Active Past Medical History Illness Codes Condition Status Onset Date Resolved Date Hematuria, unspecified ICD-9: 599.70 ICD-10: R31.9 Active 03/06/2019 Unknown Pain in right leg ICD-9: 729.5 ICD-10: M79.604 Active 03/06/2019 Unknown Urinary tract infect ion, site not specified ICD-9: 599.0 ICD-10: N39.0 Active 11/28/2018 Unknown Atrophy of thyroid ( acquired) ICD-9: 244.8 ICD-10: E03.4 Active 04/12/2018 Unknown Essential (primary) hypertension ICD-9: 401.1 ICD-10: I10 Active 04/12/2018 Unknown Mixed hyperlipidemia ICD-9: 272.2 ICD-10: E78.2 Active 04/12/2018 Unknown Tinnitus, left ear ICD- 9: 388.31 ICD-10: H93.12 Active 02/07/2019 Unknown Other acute sinusitis ICD-9: 461.8 ICD-10: J01.80 Active 10/26/2018 Unknown Other allergic rhinitis ICD-9: 477.8 ICD-10: J30.89 Active 10/26/2018 Unknown Influenza due to britta ntified novel influenza A virus with other manifestations ICD-9: 488.09 ICD-10: J09.X9 Active 08/09/2018 Unknown Pain in left finger(s) ICD-9: 729.5 ICD-10: M79.645 Active 04/12/2018 Unknown Pain in right finger(s) ICD-9: 729.5 ICD-10: M79.644 Active 04/12/2018 Unknown 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 Active 04/12/2018 Unknown Problems Condition Codes Effectiv e Dates Condition Status Hematuria, unspecified ICD-9: 599.70 ICD-10: R31.9 03/06/2019 Active Pain in right leg ICD-9: 729.5 ICD-10: M79.604 03/06/2019 Active Urinary tract infect ion, site not specified ICD-9: 599.0 ICD-10: N39.0 11/28/2018 Active Atrophy of thyroid ( acquired) ICD-9: 244.8 ICD-10: E03.4 04/12/2018 Active Essential (primary) hypertension ICD-9: 401.1 ICD-10: I10 04/12/2018 Active Mixed hyperlipidemia ICD-9: 272.2 ICD-10: E78.2 04/12/2018 Active Tinnitus, left ear ICD- 9: 388.31 ICD-10: H93.12 02/07/2019 Active Other acute sinusitis ICD-9: 461.8 ICD-10: J01.80 10/26/2018 Active Other allergic rhinitis ICD-9: 477.8 ICD-10: J30.89 10/26/2018 Active Influenza due to britta ntified novel influenza A virus with other manifestations ICD-9: 488.09 ICD-10: J09.X9 08/09/2018 Active Pain in left finger(s) ICD-9: 729.5 ICD-10: M79.645 04/12/2018 Active Pain in right finger(s) ICD-9: 729.5 ICD-10: M79.644 04/12/2018 Active 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 04/12/2018 Active Medications Medication Codes Instruc tions Start Date Stop Date Sta tus Fill Instructions doxycycline hyclate 100 mg tablet,delayed release RxNorm: 364366 1 Tablet(s) PO BID take with probiotic bid 03/10/2019 03/16/2019 Active may use caps if needed Crestor 10 mg tablet RxNorm: 020007 1 Tablet(s) PO daily 03/10/2019 08/06/2019 Active doxycycline hyclate 100 mg tablet,delayed release RxNorm: 606956 1 Tablet(s) PO BID 03/10/2019 03/09/2019 In active may use caps if needed Keflex 500 mg capsule RxNorm: 962594 1 Capsule(s) PO QID 03/06/2019 03/09/2019 Inactive Crestor 10 mg tablet RxNorm: 233651 1 Tablet(s) PO daily 02/14/2019 03/09/2019 Inactive pt would like to get just 5 tabs to try and see if she can tolerat the medication Crestor 10 mg tablet RxNorm: 558510 1 Tablet(s) PO daily 02/14/2019 02/13/2019 Inactive pt would like to get just 5 tabs to try and see if she can tolerat the medication Lipitor 20 mg tablet RxNorm: 754719 1 Tablet(s) PO daily 02/10/2019 02/09/2019 Inactive Lipitor 20 mg tablet RxNorm: 308782 1 Tablet(s) PO daily 02/10/2019 02/13/2019 Inactive levothyroxine 150 mc g tablet RxNorm: 036881 TAKE 1 TABLET BY MOUT H THREE TIMES WEEKLY 01/17/2019 No Stop Date Active Keflex 500 mg capsule RxNorm: 035808 1 Capsule(s) PO TID 11/28/2018 12/04/2018 Inactive Zithromax Z-Isidro 250 mg tablet RxNorm: 532010 Tablet(s) PO UD 10/26/2018 02/06/2019 Inactive Kenalog 40 mg/mL jarrod pension for injection RxNorm: 6119566 Milliliter(s) Inj 10/26/2018 10/26/2018 In active lisinopril 20 mg-hyd rochlorothiazide 12.5 mg tablet RxNorm: 849263 1 Tablet(s) PO BID 06/14/2018 06/08/2019 Ac tive fluorouracil 5 % top ical cream RxNorm: 205784 1 Application TOP BID 06/14/2018 06/23/2018 Inactive levothyroxine 175 mc g tablet RxNorm: 375486 1 Tablet(s) PO every other day wednesday/wednesday/sat/sun 04/12/2018 04/06/2019 Active montelukast 10 mg ta blet RxNorm: 559605 1 Tablet(s) PO daily 04/12/2018 04/06/2019 Active ibuprofen 600 mg tablet RxNorm: 660381 1 Tablet(s) PO TID 04/12/2018 04/06/2019 Active allopurinol 300 mg t ablet RxNorm: 139995 1 Tablet(s) PO daily 04/12/2018 04/06/2019 Active ibuprofen 600 mg tablet RxNorm: 603656 1 Tablet(s) PO TID 04/12/2018 04/11/2018 Inactive lisinopril 20 mg-hyd rochlorothiazide 12.5 mg tablet RxNorm: 643555 1 Tablet(s) PO daily 04/12/2018 04/11/2018 Inactive lisinopril 20 mg-hyd rochlorothiazide 12.5 mg tablet RxNorm: 001706 1 Tablet(s) PO daily 04/12/2018 06/13/2018 Inactive amlodipine 5 mg tablet RxNorm: 045800 1 Tablet(s) PO daily 04/12/2018 04/11/2018 Inactive allopurinol 300 mg t ablet RxNorm: 806770 1 Tablet(s) PO daily 04/12/2018 04/11/2018 Inactive levothyroxine 150 mc g tablet RxNorm: 763908 1 Tablet(s) PO TIW 04/12/2018 01/16/2019 Inactive amlodipine 5 mg tablet RxNorm: 731030 1 Tablet(s) PO daily 04/12/2018 02/06/2019 Inactive garlic 1,000 mg capsule RxNorm: 955650 1 Capsule(s) PO daily No Start Date Active Hair,Skin,Nails with Biotin 7.5 mg-7.5 unit-1,250 mcg chewable tablet RxNorm: 1 Tablet(s) PO daily No Start Date Active Baby Aspirin 81 mg c hewable tablet RxNorm: 351861 3 Tablet(s) PO daily No Start Date Active levothyroxine 150 mc g tablet RxNorm: 949766 wed thur and Wed sat sun Tablet(s) PO No Start Date 04/11/2018 Inactive montelukast 10 mg ta blet RxNorm: 313174 1 Tablet(s) PO daily No Start Date 04/11/2018 Inactive Fish Oil 1,000 mg ca psule RxNorm: 4 Capsule(s) PO daily No Start Date 04/11/2018 Inactive Medication Administered Medication Codes Instruc tions Start Date Status Kenalog 40 mg/mL suspension for injection RxNorm: 3720233 Milliliter 10/26/2018 No longer Active Immunizations Vaccine Codes Date Status Tetanus, Diptheria, Pertussis CVX: 113 05/19/2017 completed Tetanus/Diptheria CVX: 113 05/19/2017 completed Assessments Condition Codes Effectiv e Dates Pain in right leg ICD-10: M79.604 ICD-9: 729.5 03/06/2019 Urinary tract infection, site not specified ICD-10: N39.0 ICD-9: 599.0 03/06/2019 Gross hematuria ICD-10: R31.0 ICD-9: 599.71 03/06/2019 Tinnitus, left ear ICD-10: H93.12 ICD-9: 388.31 02/07/2019 Atrophy of thyroid (acquired) ICD-10 : E03.4 ICD-9: 244.8 02/07/2019 Mixed hyperlipidemia ICD-10: E78.2 ICD-9: 272.2 02/07/2019 Essential (primary) hypertension ICD -10: I10 ICD-9: 401.1 02/07/2019 Other allergic rhinitis ICD-10: J30. 89 ICD-9: 477.8 10/26/2018 Other acute sinusitis ICD-10: J01.80 ICD-9: 461.8 10/26/2018 Influenza due to identified novel influe nza A virus with other manifestations ICD-10: J09.X9 ICD-9: 488.09 08/09/2018 Pain in right finger(s) ICD-10: M79. 644 ICD-9: 729.5 06/14/2018 Pain in left finger(s) ICD-10: M79.6 45 ICD-9: 729.5 06/14/2018 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 ICD-9: 277.2 04/12/2018 Reason For Visit Reason For Visit Effective Dates Notes dysuria 03/06/2019 hypertension 02/07/2019 dysuria 11/28/2018 sinus congestion 10/26/2018 cough 08/09/2018 hypertension 06/14/2018 urinary urgency 04/12/2018 Results Observation Observation Code Item Item Code Result Date CULTURE, URINE M100 URIN E CULTURE See Note 03/08/2019 Urine Culture Ucult Comp lete >100,000 col/ml aerobic grow th sent to ref lab 11/29/2018 Free T4 Dls801 FREE T4 1.13 ng/dL 04/12/2018 Comp Metabolic Lej255 NA 141 mEq/L 04/12/2018 Comp Metabolic Vsp529 K 4.4 mEq/L 04/12/2018 Comp Metabolic Rmf755 CL 103 mEq/L 04/12/2018 Comp Metabolic Wxo912 CO2 31.0 mEq/L 04/12/2018 Comp Metabolic Xya419 AN ION GAP 11 04/12/2018 Comp Metabolic Jdc680 GL UCOSE 98 mg/dL 04/12/2018 Comp Metabolic Dsg669 Cr eat 0.7 mg/dL 04/12/2018 Comp Metabolic Ipj136 eG FR 84 ml/min/1.73m2 04/12 Comp Metabolic Zpb831 BUN 17 mg/dL 04/12/2018 Comp Metabolic Wxl079 B/ C Ratio 23.0 Ratio 04/12/2018 Comp Metabolic Nsi615 CA LCIUM 10.0 mg/dL 04/12/2018 Comp Metabolic Iwc597 AL K PHOS 70 U/L 04/12/2018 Comp Metabolic Cqt924 T(SGOT) 40 U/L 04/12/2018 Comp Metabolic Dvp911 AL T(SGPT) 48 U/L 04/12/2018 Comp Metabolic Xvs089 BI LI T 0.4 mg/dL 04/12/2018 Comp Metabolic Bxw882 AL BUMIN 4.2 g/dL 04/12/2018 Comp Metabolic Rns041 TP RO 6.9 g/dL 04/12/2018 Comp Metabolic Bsw752 GL OB 2.7 g/dL 04/12/2018 Comp Metabolic Mvu970 A/ G Ratio 1.6 Ratio 04/12/2018 Comp Metabolic Wli187 Os mo 283 mOsmo 04/12/2018 Uric Acid Ord77 Uric A 5.7 mg/dL 04/12/2018 Cbc With Differential Ord2 WBC 5.20 K/ul 04/12/2018 Cbc With Differential Ord2 RBC 4.19 M/ul 04/12/2018 Cbc With Differential Ord2 HGB 12.3 g/dl 04/12/2018 Cbc With Differential Ord2 HCT 38.4 % 04/12/2018 Cbc With Differential Ord2 Neut% 45.8 % 04/12/2018 Cbc With Differential Ord2 MCV 91.6 fl 04/12/2018 Cbc With Differential Ord2 Lymph% 38.8 % 04/12/2018 Cbc With Differential Ord2 MCH 29.4 pg 04/12/2018 Cbc With Differential Ord2 [place]% 12.3 % 04/12/2018 Cbc With Differential Ord2 [...] 2.02 K/ul 04/12/2018 Cbc With Differential Ord2 [place] ABS# 0.6 K/ul 04/12/2018 Cbc With Differential [...] Result Effective Dates Constitutional No recent illness 03/06/2019 Constitutional No chills 03/06/2019 Constitutional fatigue 0 03/06/2019 Constitutional No fever 03/06/2019 Constitutional No insomnia 03/06/2019 Constitutional No malaise 03/06/2019 Constitutional obesity 0 03/06/2019 Eyes No vision change Ears/Nose/Throat/Neck No dizziness 03/06/2019 Ears/Nose/Throat/Neck No dysphagia 03/06/2019 Ears/Nose/Throat/Neck No headache 03/06/2019 Ears/Nose/Throat/Neck No hearing loss 03/06/2019 Ears/Nose/Throat/Neck nasal allergies 03/06/2019 Ears/Nose/Throat/Neck No sore throat 03/06/2019 Cardiovascular No chest pain/pressure 03/06/2019 Cardiovascular No dyspnea 03/06/2019 Cardiovascular No edema 03/06/2019 Cardiovascular No exercise intolerance 03/06/2019 Cardiovascular No fatigue 03/06/2019 Cardiovascular No near-syncope/dizziness 03/06/2019 Respiratory No chest tightness 03/06/2019 Respiratory No cough 11/2018 Respiratory No dyspnea 0 03/06/2019 Respiratory No pedal edema 03/06/2019 Gastrointestinal No abdominal pain 03/06/2019 Gastrointestinal No constipation 03/06/2019 Gastrointestinal No diarrhea 03/06/2019 Gastrointestinal No gastroesophageal reflu x 03/06/2019 Gastrointestinal No nausea 03/06/2019 Gastrointestinal No vomiting 03/06/2019 Genitourinary/Nephrology No dysuria 03/06/2019 Genitourinary/Nephrology No nocturia 03/06/2019 Genitourinary/Nephrology urinary urgency 03/06/2019 Genitourinary/Nephrology urinary frequency 03/06/2019 Genitourinary/Nephrology No urinary incontinence 03/06/2019 Musculoskeletal stiffness 03/06/2019 Musculoskeletal muscle weakness 03/06/2019 Musculoskeletal No myalgias 03/06/2019 Dermatologic No rash 11/2018 Dermatologic No sores Neurologic No dizziness 03/06/2019 Neurologic No headache 0 03/06/2019 Neurologic No neck pain 03/06/2019 Neurologic No syncope Psychiatric No anxiety 0 03/06/2019 Psychiatric No depression 03/06/2019 Cardiovascular hypertension 03/06/2019 Constitutional No recent illness 02/07/2019 Constitutional No chills 02/07/2019 Constitutional fatigue 0 02/07/2019 Constitutional No fever 02/07/2019 Constitutional No insomnia 02/07/2019 Constitutional No malaise 02/07/2019 Constitutional obesity 0 02/07/2019 Eyes No vision change Ears/Nose/Throat/Neck No dizziness 02/07/2019 Ears/Nose/Throat/Neck No dysphagia 02/07/2019 Ears/Nose/Throat/Neck No headache 02/07/2019 Ears/Nose/Throat/Neck No hearing loss 02/07/2019 Ears/Nose/Throat/Neck nasal allergies 02/07/2019 Ears/Nose/Throat/Neck No sore throat 02/07/2019 Cardiovascular No chest pain/pressure 02/07/2019 Cardiovascular No dyspnea 02/07/2019 Cardiovascular No edema 02/07/2019 Cardiovascular No exercise intolerance 02/07/2019 Cardiovascular No fatigue 02/07/2019 Cardiovascular No near-syncope/dizziness 02/07/2019 Respiratory No chest tightness 02/07/2019 Respiratory No cough 04/2019 Respiratory No dyspnea 0 02/07/2019 Respiratory No pedal edema 02/07/2019 Gastrointestinal No abdominal pain 02/07/2019 Gastrointestinal No constipation 02/07/2019 Gastrointestinal No diarrhea 02/07/2019 Gastrointestinal No gastroesophageal reflu x 02/07/2019 Gastrointestinal No nausea 02/07/2019 Gastrointestinal No vomiting 02/07/2019 Genitourinary/Nephrology No dysuria 02/07/2019 Genitourinary/Nephrology No nocturia 02/07/2019 Genitourinary/Nephrology urinary urgency 02/07/2019 Genitourinary/Nephrology urinary frequency 02/07/2019 Genitourinary/Nephrology No urinary incontinence 02/07/2019 Musculoskeletal stiffness 02/07/2019 Musculoskeletal muscle weakness 02/07/2019 Musculoskeletal No myalgias 02/07/2019 Dermatologic No rash 04/2019 Dermatologic No sores Neurologic No dizziness 02/07/2019 Neurologic No headache 0 02/07/2019 Neurologic No neck pain 02/07/2019 Neurologic No syncope Psychiatric No anxiety 0 02/07/2019 Psychiatric No depression 02/07/2019 Constitutional No recent illness 11/28/2018 Constitutional No anorexia 11/28/2018 Constitutional No night sweats 11/28/2018 Constitutional No chills 11/28/2018 Constitutional No diaphoresis 11/28/2018 Constitutional No fatigue 11/28/2018 Constitutional No fever 11/28/2018 Constitutional No malaise 11/28/2018 Constitutional No insomnia 11/28/2018 Constitutional No weight loss 11/28/2018 Constitutional No weight gain 11/28/2018 Gastrointestinal No abdominal pain 11/28/2018 Gastrointestinal No constipation 11/28/2018 Gastrointestinal No diarrhea 11/28/2018 Genitourinary/Nephrology dysuria 11/28/2018 Genitourinary/Nephrology urinary urgency 11/28/2018 Dermatologic No rash Constitutional recent illness 10/26/2018 Constitutional No chills 10/26/2018 Constitutional No diaphoresis 10/26/2018 Constitutional No fever 10/26/2018 Eyes No eye erythema Ears/Nose/Throat/Neck nasal allergies 10/26/2018 Ears/Nose/Throat/Neck nasal discharge 10/26/2018 Ears/Nose/Throat/Neck postnasal drip 10/26/2018 Ears/Nose/Throat/Neck sinus congestion 10/26/2018 Ears/Nose/Throat/Neck No sore throat 10/26/2018 Cardiovascular No chest pain/pressure 10/26/2018 Cardiovascular No dyspnea 10/26/2018 Respiratory No chest congestion 10/26/2018 Respiratory cough 2018 Respiratory No dyspnea 0 10/26/2018 Gastrointestinal No abdominal pain 10/26/2018 Gastrointestinal No constipation 10/26/2018 Gastrointestinal No diarrhea 10/26/2018 Gastrointestinal No nausea 10/26/2018 Gastrointestinal No vomiting 10/26/2018 Dermatologic No rash Neurologic No alteration of consciousness 10/26/2018 Neurologic No mental status change 10/26/2018 Constitutional recent illness 08/09/2018 Constitutional No chills 08/09/2018 Constitutional fatigue 0 08/09/2018 Constitutional No fever 08/09/2018 Constitutional No insomnia 08/09/2018 Constitutional No malaise 08/09/2018 Eyes No vision change Ears/Nose/Throat/Neck No dizziness 08/09/2018 Ears/Nose/Throat/Neck No dysphagia 08/09/2018 Ears/Nose/Throat/Neck No headache 08/09/2018 Ears/Nose/Throat/Neck No hearing loss 08/09/2018 Ears/Nose/Throat/Neck nasal allergies 08/09/2018 Ears/Nose/Throat/Neck No sore throat 08/09/2018 Ears/Nose/Throat/Neck sinus congestion 08/09/2018 Cardiovascular No chest pain/pressure 08/09/2018 Cardiovascular No dyspnea 08/09/2018 Cardiovascular No edema 08/09/2018 Cardiovascular No exercise intolerance 08/09/2018 Cardiovascular No fatigue 08/09/2018 Cardiovascular No near-syncope/dizziness 08/09/2018 Respiratory No chest tightness 08/09/2018 Respiratory No cough 03/2019 Respiratory No dyspnea 0 08/09/2018 Respiratory No pedal edema 08/09/2018 Gastrointestinal No abdominal pain 08/09/2018 Gastrointestinal No constipation 08/09/2018 Gastrointestinal No diarrhea 08/09/2018 Gastrointestinal No gastroesophageal reflu x 08/09/2018 Gastrointestinal No nausea 08/09/2018 Gastrointestinal No vomiting 08/09/2018 Genitourinary/Nephrology No dysuria 08/09/2018 Genitourinary/Nephrology No urinary incontinence 08/09/2018 Musculoskeletal stiffness 08/09/2018 Dermatologic No rash 03/2019 Dermatologic No sores Neurologic No dizziness 08/09/2018 Neurologic No headache 0 08/09/2018 Neurologic No neck pain 08/09/2018 Neurologic No syncope Psychiatric No anxiety 0 08/09/2018 Psychiatric No depression 08/09/2018 Constitutional No anorexia 08/09/2018 Constitutional No night sweats 08/09/2018 Constitutional No diaphoresis 08/09/2018 Constitutional No recent illness 06/14/2018 Constitutional No chills 06/14/2018 Constitutional fatigue 1 08/14/2017 Constitutional No fever 06/14/2018 Constitutional No insomnia 06/14/2018 Constitutional No malaise 06/14/2018 Constitutional obesity 1 08/14/2017 Eyes No vision change Ears/Nose/Throat/Neck No dizziness 06/14/2018 Ears/Nose/Throat/Neck No dysphagia 06/14/2018 Ears/Nose/Throat/Neck No headache 06/14/2018 Ears/Nose/Throat/Neck No hearing loss 06/14/2018 Ears/Nose/Throat/Neck nasal allergies 06/14/2018 Ears/Nose/Throat/Neck No sore throat 06/14/2018 Ears/Nose/Throat/Neck sinus congestion 06/14/2018 Cardiovascular No chest pain/pressure 06/14/2018 Cardiovascular No dyspnea 06/14/2018 Cardiovascular No edema 06/14/2018 Cardiovascular No exercise intolerance 06/14/2018 Cardiovascular No fatigue 06/14/2018 Cardiovascular No near-syncope/dizziness 06/14/2018 Respiratory No chest tightness 06/14/2018 Respiratory No cough Respiratory No dyspnea 1 08/14/2017 Respiratory No pedal edema 06/14/2018 Gastrointestinal No abdominal pain 06/14/2018 Gastrointestinal No constipation 06/14/2018 Gastrointestinal No diarrhea 06/14/2018 Gastrointestinal No gastroesophageal reflu x 06/14/2018 Gastrointestinal No nausea 06/14/2018 Gastrointestinal No vomiting 06/14/2018 Genitourinary/Nephrology No dysuria 06/14/2018 Genitourinary/Nephrology No nocturia 06/14/2018 Genitourinary/Nephrology urinary urgency 06/14/2018 Genitourinary/Nephrology urinary frequency 06/14/2018 Genitourinary/Nephrology No urinary incontinence 06/14/2018 Musculoskeletal stiffness 06/14/2018 Musculoskeletal swelling 06/14/2018 Musculoskeletal arthralgia(s) 06/14/2018 Musculoskeletal muscle weakness 06/14/2018 Musculoskeletal No myalgias 06/14/2018 Dermatologic No rash Dermatologic No sores Neurologic No dizziness 06/14/2018 Neurologic No headache 1 08/14/2017 Neurologic No neck pain 06/14/2018 Neurologic No syncope Psychiatric No anxiety 1 08/14/2017 Psychiatric No depression 06/14/2018 Constitutional No recent illness 04/12/2018 Constitutional No chills 04/12/2018 Constitutional fatigue 0 04/12/2018 Constitutional No fever 04/12/2018 Constitutional No insomnia 04/12/2018 Constitutional No malaise 04/12/2018 Eyes No vision change Ears/Nose/Throat/Neck No dizziness 04/12/2018 Ears/Nose/Throat/Neck No dysphagia 04/12/2018 Ears/Nose/Throat/Neck No headache 04/12/2018 Ears/Nose/Throat/Neck No hearing loss 04/12/2018 Ears/Nose/Throat/Neck nasal allergies 04/12/2018 Ears/Nose/Throat/Neck No sore throat 04/12/2018 Ears/Nose/Throat/Neck sinus congestion 04/12/2018 Cardiovascular No chest pain/pressure 04/12/2018 Cardiovascular No dyspnea 04/12/2018 Cardiovascular No edema 04/12/2018 Cardiovascular No exercise intolerance 04/12/2018 Cardiovascular No fatigue 04/12/2018 Cardiovascular No near-syncope/dizziness 04/12/2018 Respiratory No chest tightness 04/12/2018 Respiratory No cough 06/2018 Respiratory No dyspnea 0 04/12/2018 Respiratory No pedal edema 04/12/2018 Gastrointestinal No abdominal pain 04/12/2018 Gastrointestinal No constipation 04/12/2018 Gastrointestinal No diarrhea 04/12/2018 Gastrointestinal No gastroesophageal reflu x 04/12/2018 Gastrointestinal No nausea 04/12/2018 Gastrointestinal No vomiting 04/12/2018 Genitourinary/Nephrology No dysuria 04/12/2018 Genitourinary/Nephrology No nocturia 04/12/2018 Genitourinary/Nephrology No urinary incontinence 04/12/2018 Musculoskeletal stiffness 04/12/2018 Musculoskeletal swelling 04/12/2018 Musculoskeletal muscle weakness 04/12/2018 Musculoskeletal No myalgias 04/12/2018 Dermatologic No rash 06/2018 Dermatologic No sores Neurologic No dizziness 04/12/2018 Neurologic No headache 0 04/12/2018 Neurologic No neck pain 04/12/2018 Neurologic No syncope Psychiatric No anxiety 0 04/12/2018 Psychiatric No depression 04/12/2018 Musculoskeletal arthralgia(s) 04/12/2018 Constitutional obesity 0 04/12/2018 Genitourinary/Nephrology urinary frequency 04/12/2018 Genitourinary/Nephrology urinary urgency 04/12/2018 Physical Exam Exam Name System Name It em Name Status Result Effective Dates Notes Full Exam - General 1994 Constitutional general appearance Development: well developed 03/06/2019 None Full Exam - General 1994 Constitutional general appearance Development: appears stated age 0803/06/2019 None Full Exam - General 1994 Constitutional general appearance Hygiene/Attention to Grooming: good hygiene 03/06/2019 None Full Exam - General 1994 Eyes conjunctiva/eyelids Overall: conjunctiva clear 03/06/2019 None Full Exam - General 1994 Eyes conjunctiva/eyelids Overall: cornea clear 03/06/2019 None Full Exam - General 1994 Eyes conjunctiva/eyelids Overall: eyelids normal 03/06/2019 None Full Exam - General 1994 Eyes pupils and irises Overall: pupils equal, round, reactive to light and accomodation 03/06/2019 None Full Exam - General 1994 Ears/Nose/Throat lips/teeth/gingiva Overall: benign lips 03/06/2019 None Full Exam - General 1994 Ears/Nose/Throat lips/teeth/gingiva Overall: normal dentition 03/06/2019 None Full Exam - General 1994 Ears/Nose/Throat oral cavity/pharynx/larynx Overall: oral mucosa clear 03/06/2019 None Full Exam - General 1994 Ears/Nose/Throat oral cavity/pharynx/larynx Overall: oropharyngeal mucosa clear 03/06/2019 None Full Exam - General 1994 Ears/Nose/Throat oral cavity/pharynx/larynx Overall: hypopharynx benign 03/06/2019 None Full Exam - General 1994 Ears/Nose/Throat oral cavity/pharynx/larynx Overall: no masses 03/06/2019 None Full Exam - General 1994 Respiratory auscultation Overall: breath sounds clear bilaterally 03/06/2019 None Full Exam - General 1994 Respiratory respiratory effort/rhythm Overall: no retractions 03/06/2019 None Full Exam - General 1994 Respiratory respiratory effort/rhythm Overall: normal rate 03/06/2019 None Full Exam - General 1994 Cardiovascular extremities Overall: no clubbing 03/06/2019 None Full Exam - General 1994 Cardiovascular auscultation of heart Overall: regular rate 03/06/2019 None Full Exam - General 1994 Cardiovascular auscultation of heart Overall: normal heart sounds 03/06/2019 None Full Exam - General 1994 Abdomen abdominal exam Overall: no tenderness 03/06/2019 None Full Exam - General 1994 Abdomen abdominal exam Overall: normal bowel sounds 03/06/2019 None Full Exam - General 1994 Musculoskeletal spine, ribs and pelvis Overall: spine benign 03/06/2019 None Full Exam - General 1994 Musculoskeletal spine, ribs and pelvis Overall: sacroiliac joint benign 03/06/2019 None Full Exam - General 1994 Musculoskeletal spine, ribs and pelvis Overall: good posture 03/06/2019 None Full Exam - General 1994 Musculoskeletal head and neck Overall: head atraumatic 03/06/2019 None Full Exam - General 1994 Musculoskeletal head and neck Overall: cervical spine benign 03/06/2019 None Full Exam - General 1994 Neurologic cranial nerves Overall: crainial nerves 2 - 12 grossly intact 03/06/2019 None Full Exam - General 1994 Psychiatric orientation/consciousness Overall: oriented to person, place and time 03/06/2019 None Full Exam - General 1994 Psychiatric mood and affect Overall: normal mood and affect 03/06/2019 None Full Exam - General 1994 Musculoskeletal lower extremity Palpation - thigh: tenderness 03/06/2019 lateral right thigh Full Exam - General 1994 Constitutional general appearance Development: well developed 02/07/2019 None Full Exam - General 1994 Constitutional general appearance Development: appears stated age 0702/07/2019 None Full Exam - General 1994 Constitutional general appearance Hygiene/Attention to Grooming: good hygiene 02/07/2019 None Full Exam - General 1994 Eyes conjunctiva/eyelids Overall: conjunctiva clear 02/07/2019 None Full Exam - General 1994 Eyes conjunctiva/eyelids Overall: cornea clear 02/07/2019 None Full Exam - General 1994 Eyes conjunctiva/eyelids Overall: eyelids normal 02/07/2019 None Full Exam - General 1994 Eyes pupils and irises Overall: pupils equal, round, reactive to light and accomodation 02/07/2019 None Full Exam - General 1994 Ears/Nose/Throat otoscopic exam Overall: external auditory canals clear 02/07/2019 None Full Exam - General 1994 Ears/Nose/Throat otoscopic exam Overall: tympanic membranes clear 02/07/2019 None Full Exam - General 1994 Ears/Nose/Throat lips/teeth/gingiva Overall: benign lips 02/07/2019 None Full Exam - General 1995 Ears/Nose/Throat lips/teeth/gingiva Overall: normal dentition 02/07/2019 None Full Exam - General 1994 Ears/Nose/Throat oral cavity/pharynx/larynx Overall: oral mucosa clear 02/07/2019 None Full Exam - General 1994 Ears/Nose/Throat oral cavity/pharynx/larynx Overall: oropharyngeal mucosa clear 02/07/2019 None Full Exam - General 1994 Ears/Nose/Throat oral cavity/pharynx/larynx Overall: hypopharynx benign 02/07/2019 None Full Exam - General 1995 Ears/Nose/Throat oral cavity/pharynx/larynx Overall: no masses 02/07/2019 None Full Exam - General 1994 Respiratory auscultation Overall: breath sounds clear bilaterally 02/07/2019 None Full Exam - General 1994 Respiratory respiratory effort/rhythm Overall: no retractions 02/07/2019 None Full Exam - General 1994 Respiratory respiratory effort/rhythm Overall: normal rate 02/07/2019 None Full Exam - General 1994 Cardiovascular extremities Overall: no clubbing 02/07/2019 None Full Exam - General 1994 Cardiovascular auscultation of heart Overall: regular rate 02/07/2019 None Full Exam - General 1994 Cardiovascular auscultation of heart Overall: normal heart sounds 02/07/2019 None Full Exam - General 1994 Abdomen abdominal exam Overall: no tenderness 02/07/2019 None Full Exam - General 1994 Abdomen abdominal exam Overall: normal bowel sounds 02/07/2019 None Full Exam - General 1994 Lymphatic neck nodes Overall: anterior cervical chain benign 02/07/2019 None Full Exam - General 1994 Lymphatic neck nodes Overall: posterior cervical chain benign 02/07/2019 None Full Exam - General 1994 Musculoskeletal spine, ribs and pelvis Overall: spine benign 02/07/2019 None Full Exam - General 1994 Musculoskeletal spine, ribs and pelvis Overall: sacroiliac joint benign 02/07/2019 None Full Exam - General 1994 Musculoskeletal spine, ribs and pelvis Overall: good posture 02/07/2019 None Full Exam - General 1994 Musculoskeletal head and neck Overall: head atraumatic 02/07/2019 None Full Exam - General 1994 Musculoskeletal head and neck Overall: cervical spine benign 02/07/2019 None Full Exam - General 1994 Integument inspection of skin Overall: few scattered moles, no gross abnormalities 02/07/2019 None Full Exam - General 1994 Neurologic deep tendon reflexes Overall: deep tendon reflexes intact 02/07/2019 None Full Exam - General 1994 Neurologic cranial nerves Overall: crainial nerves 2 - 12 grossly intact 02/07/2019 None Full Exam - General 1994 Psychiatric orientation/consciousness Overall: oriented to person, place and time 02/07/2019 None Full Exam - General 1994 Psychiatric mood and affect Overall: normal mood and affect 02/07/2019 None Full Exam - General 1994 Constitutional general appearance Overall: well developed 11/28/2018 None Full Exam - General 1994 Constitutional general appearance Overall: in no acute distress 11/28/2018 None Full Exam - General 1994 Constitutional general appearance Overall: well nourished 11/28/2018 None Full Exam - General 1994 Respiratory auscultation Overall: breath sounds clear bilaterally 11/28/2018 None Full Exam - General 1994 Respiratory respiratory effort/rhythm Overall: no retractions 11/28/2018 None Full Exam - General 1994 Respiratory respiratory effort/rhythm Overall: normal rate 11/28/2018 None Full Exam - General 1994 Cardiovascular auscultation of heart Overall: regular rate 11/28/2018 None Full Exam - General 1994 Cardiovascular auscultation of heart Overall: normal heart sounds 11/28/2018 None Full Exam - General 1994 Psychiatric orientation/consciousness Overall: oriented to person, place and time 11/28/2018 None Full Exam - ENT Constitutional general appearance Overall: well nourished 10/26/2018 None Full Exam - ENT Constitutional general appearance Overall: well developed 10/26/2018 None Full Exam - ENT Constitutional general appearance Overall: in no acute distress 10/26/2018 None Full Exam - ENT Ears/Nose/Throat otoscopic exam Overall: external auditory canals normal 10/26/2018 None Full Exam - ENT Ears/Nose/Throat otoscopic exam Left tympanic membrane: air-fluid le florentino 10/26/2018 None Full Exam - ENT Ears/Nose/Throat otoscopic exam Right tympanic membrane: air-fluid level 10/26/2018 None Full Exam - ENT Ears/Nose/Throat nasal mucosa, septum, turbinates Drainage: clear 10/26/2018 None Full Exam - ENT Ears/Nose/Throat nasal mucosa, septum, turbinates Drainage: yellow 10/26/2018 None Full Exam - ENT Ears/Nose/Throat lips/teeth/gingiva Overall: benign lips 10/26/2018 None Full Exam - ENT Ears/Nose/Throat oropharynx Posterior Pharynx: clear post nasal drainage 10/26/2018 None Full Exam - ENT Face and Head palpation Left maxillary sinus: tender 10/26/2018 None Full Exam - ENT Face and Head palpation Right maxillary sinus: tender 10/26/2018 None Full Exam - ENT Respiratory inspection Overall: no retractions 10/26/2018 None Full Exam - ENT Respiratory inspection Overall: normal rate None Full Exam - ENT Respiratory auscultation Overall: breath sounds clear bilater ally 10/26/2018 None Full Exam - ENT Cardiovascular auscultation of heart Overall: regular rate 10/26/2018 None Full Exam - ENT Cardiovascular auscultation of heart Overall: normal heart sounds 10/26/2018 None Full Exam - ENT Lymphatic palpation of lymph nodes Overall: anterior cervical chain benign 10/26/2018 None Full Exam - ENT Lymphatic palpation of lymph nodes Overall: posterior cervical chain benign 10/26/2018 None Full Exam - ENT Neurologic mood and affect Overall: normal mood 10/26/2018 None Full Exam - ENT Neurologic mood and affect Overall: normal affect 10/26/2018 None Full Exam - ENT Neurologic orientation Overall: oriented to person, place a nd time 10/26/2018 None Full Exam - ENT Constitutional general appearance Overall: well nourished 08/09/2018 None Full Exam - ENT Constitutional general appearance Overall: well developed 08/09/2018 None Full Exam - ENT Constitutional general appearance Overall: in no acute distress 08/09/2018 None Full Exam - ENT Neurologic orientation Overall: oriented to person, place a nd time 08/09/2018 None Full Exam - ENT Integument inspection of skin Overall: no rash, lesions 08/09/2018 None Full Exam - ENT Lymphatic palpation of lymph nodes Overall: anterior cervical chain benign 08/09/2018 None Full Exam - ENT Lymphatic palpation of lymph nodes Overall: posterior cervical chain benign 08/09/2018 None Full Exam - ENT Cardiovascular auscultation of heart Overall: normal heart sounds 08/09/2018 None Full Exam - ENT Cardiovascular auscultation of heart Overall: regular rate 08/09/2018 None Full Exam - ENT Respiratory auscultation Overall: breath sounds clear bilater ally 08/09/2018 None Full Exam - ENT Respiratory inspection Overall: normal rate 03/2019 None Full Exam - ENT Respiratory inspection Overall: no retractions 08/09/2018 None Full Exam - ENT Face and Head palpation Overall: no sinus tenderness 08/09/2018 None Full Exam - ENT Ears/Nose/Throat otoscopic exam Overall: tympanic membranes normal 08/09/2018 None Full Exam - ENT Ears/Nose/Throat otoscopic exam Overall: external auditory canals normal 08/09/2018 None Full Exam - ENT Ears/Nose/Throat oropharynx Overall: oral mucosa clear 08/09/2018 None Full Exam - General 1994 Constitutional general appearance Development: well developed 06/14/2018 None Full Exam - General 1994 Constitutional general appearance Development: appears stated age 1106/14/2018 None Full Exam - General 1994 Constitutional general appearance Hygiene/Attention to Grooming: good hygiene 06/14/2018 None Full Exam - General 1994 Eyes conjunctiva/eyelids Overall: conjunctiva clear 06/14/2018 None Full Exam - General 1994 Eyes conjunctiva/eyelids Overall: cornea clear 06/14/2018 None Full Exam - General 1994 Eyes conjunctiva/eyelids Overall: eyelids normal 06/14/2018 None Full Exam [...] None Full Exam - General 1994 Eyes conjunctiva/eyelids Overall: conjunctiva clear 04/12/2018 None Full Exam - General 1994 Eyes conjunctiva/eyelids Overall: cornea clear 04/12/2018 None Full Exam - General 1994 Eyes conjunctiva/eyelids Overall: eyelids normal 04/12/2018 None Full Exam [...] Inspection - carpals: swelling 04/12/2018 None Procedures Procedure Codes Date URINALYSIS NONAUTO W /O SCOPE CPT-4: 29048 03/06/2019 URINALYSIS NONAUTO W /O SCOPE CPT-4: 03511 11/28/2018 THER/PROPH/DIAG INJ SC/IM CPT-4: 86674 10/26/2018 TRIAMCINOLONE ACET I [place] NOS CPT-4: J3301 10/26/2018 Vital Signs Date Vital 03/06/2019 Blood Pressure 1: 130/78 Code: 8480-6 Heart Rate 1: 81 bpm Height: 5'8" SpO2: 95% Temperature: 36.7 (C ) / 98.0 (F) Weight: 02/07/2019 Blood Pressure 1: 140/82 Code: 8480-6 BMI: 44.1 Code: 80941-9 Heart Rate 1: 70 bpm Height: 5'8" SpO2: 95% Weight: 290 lbs 11/28/2018 Blood Pressure 1: 132/78 Code: 8480-6 BMI: 44.6 Code: 54819-7 Heart Rate 1: 85 bpm Height: 5'8" SpO2: 96% Weight: 293 lbs 10/26/2018 Blood Pressure 1: 154/88 Code: 8480-6 BMI: 44.6 Code: 32728-7 Heart Rate 1: 78 bpm Height: 5'8" SpO2: 96% Weight: 293 lbs 08/09/2018 Blood Pressure 1: 120/84 Code: 8480-6 Heart Rate 1: 71 bpm Height: SpO2: 96% Weight: 06/14/2018 Blood Pressure 1: 136/84 Code: 8480-6 BMI: 43.8 Code: 56739-4 Heart Rate 1: 73 bpm Height: 5'8" SpO2: 96% Weight: 288 lbs 04/12/2018 Blood Pressure 1: 138/86 Code: 8480-6 BMI: 43.0 Code: 80462-5 Heart Rate 1: 61 bpm Height: 5'8" SpO2: 97% Weight: 283 lbs Functional Status No Functional Status data History of Present Illness Symptom Name Status Resu lt Effective Date Notes Quality acute 03/06/2019 None Quality burning 03/06/2019 None Onset and Resolution s udden in onset 03/06/2019 None Onset of Symptom 4 day s ago 03/06/2019 None Pertinent Findings fever 03/06/2019 None Pertinent Findings laquita dder pain 03/06/2019 None Onset and Resolution o ngoing 02/07/2019 None Onset of Symptom durin g adulthood 02/07/2019 None Quality constant 02/07/2019 None Blood Pressure Values not checking blood pressure at home 02/07/2019 None Pertinent Findings Den ies dizziness 02/07/2019 None Pertinent Findings Den ies dyspnea 02/07/2019 None Quality intermittent 11/28/2018 None Onset and Resolution s udden in onset 11/28/2018 None Onset of Symptom 2-3 d ays ago 11/28/2018 None Pertinent Findings laquita dder pain 11/28/2018 None Pertinent Findings uri nary urgency 11/28/2018 None Limitation on Activities does not limit urination 11/28/2018 None Frequency of Episodes increasing 11/28/2018 None Triggers no known asso ciated factors 11/28/2018 None Location frontal sinuses 10/26/2018 None Quality constant 10/26/2018 None Quality pressure 10/26/2018 None Onset and Resolution s udden in onset 10/26/2018 None Onset of Symptom 3 day s ago 10/26/2018 None Location in the throat 10/26/2018 None Quality constant 10/26/2018 None Quality hacking 10/26/2018 None Onset and Resolution s udden in onset 10/26/2018 None Quality breathlessness 10/26/2018 None Quality chest tightness 10/26/2018 None Onset and Resolution s udden in onset 10/26/2018 None Onset of Symptom 3 day s ago 10/26/2018 None Location in the lung 08/09/2018 None Quality acute 08/09/2018 None Onset and Resolution o ngoing 08/09/2018 None Onset of Symptom 2 wee ks ago 08/09/2018 None Frequency of Episodes decreasing 08/09/2018 None Significant Medications albuterol 08/09/2018 None Triggers ill contacts 08/09/2018 None Pertinent Findings Den ies chest discomfort 08/09/2018 None Pertinent Findings Den ies dyspnea 08/09/2018 None Pertinent Findings Den ies fever 08/09/2018 None hypertension Onset and Resolution ongoing 06/14/2018 None hypertension Onset of Symptom during adulthood 06/14/2018 None gout Location Right Hand 06/14/2018 None gout Location Left Hand 06/14/2018 None gout Quality aching 06/14/2018 None urinary urgency Quality constant 04/12/2018 None urinary urgency Onset of Symptom 1 months ago 04/12/2018 None urinary frequency Quality constant 04/12/2018 None urinary frequency Onset and Resolution sudden in onset 04/12/2018 None Advance Directives No Advance Directive data Encounters Encounter Performer Loca tion Codes Date ([id number]) [id number] EST. P ATIENT, LEVEL IV Diagnosis: Gross hematuria[ICD10: R31.0] Diagnosis: Urinary tract infection, site not specified[ICD10: N39.0] Diagnosis: Pain in right leg[ICD10: M79.604] Lorna Solis MD, [facility] CPT-4: 52849 03/06/2019 ([id number]) 36061 EST. P ATIENT, LEVEL IV Diagnosis: Atrophy of thyroid (acquired)[ICD10: E03.4] Diagnosis: Essential (primary) hypertension[ICD10: I10] Diagnosis: Mixed hyperlipidemia[ICD10: E78.2] Diagnosis: Tinnitus, left ear[ICD10: H93.12] Lorna Solis MD, [facility] CPT-4: 34645 02/07/2019 ([id number]) [id number] EST. P ATIENT, LEVEL II Diagnosis: Urinary tract infection, site not specified[ICD10: N39.0] Delmis Solis MD, [facility] CPT-4: 93484 11/28/2018 [id number] EST. PATIENT, LEVEL III Diagnosis: Other acute sinusitis[ICD10: J01.80] Diagnosis: Other allergic rhinitis[ICD10: J30.89] Anna Solis MD, [facility] CPT-4: 14530 10/26/2018 ([id number]) 81695 EST. P ATIENT, LEVEL III Diagnosis: Influenza due to identified novel influenza A virus with other manifestations[ICD10: J09.X9] Delmis Solis MD, [facility] CPT-4: 81774 08/09/2018 ([id number]) 03477 EST. 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 Antibiotic electronically prescribed to pt's pharmacy of choice. Pt to call if symptoms do not improve. Iliotibial band syndrome- recommended use of anti-inflammatories and pt given handout on Iliotibial band exercises. 03/06/2019 Appointment: Lorna Solis WPtel: [facility] [place] (15 min) Moderate 03/06/2019 Patient Education: Patient Medication Summary Completed 03/06/2019 Care Plan: Urine Culture Pending 03/06/2019 Visit Plan: Hypertension - well con trolled - continue with current medications, continue with no added salt diet. Pt has been encouraged to exercise daily. The pt has been advised to call the office if there are any acute concerns about change in blood pressure readings at home. Family Hx of CAD - referral to Dr. Urbina in [place] for stress testing. Hearing loss - tinnitus - referral to dr. espana Hyperlipidemia - pt has been counseled about appropriate diet, exercise, and need for low fat food choices. I have discussed the need for the patient to take medications as prescribed. If the patient has negative side effects from the medication, they are to CALL the office and not abruptly discontinue the medication without discussion with a practitioner in the office. We will check labs in 3-6 months for follow up on the patient's chronic medical problem and to assure normal liver response to medications. Hypothyroidism - pt with chronic hypothyroidism, continue with current medication, will monitor pt to signs or symptoms of lack of adequate supplementation. Pt is to continue with current dose of medication unless directed otherwise. Check labs at regular intervals q 3 months or q 6 months based on previous levels of control. 02/07/2019 Appointment: Lorna Solis WPtel: [facility] [place] (15 min) Moderate 02/07/2019 Patient Education: Patient Medication Summary Completed 02/07/2019 Patient Education: Cholesterol Management Completed 02/07/2019 Care Plan: Comp Metabolic Pending 02/07/2019 Care Plan: Cbc With Differential Pending 02/07/2019 Care Plan: Tsh Pending 02/07/2019 Care Plan: Lipid Pending 02/07/2019 Care Plan: Free T4 Pending 02/07/2019 Care Plan: Referral Order SNOMED-CT : [id number] Pending 02/07/2019 Visit Plan: UTI - pt with positive urinalysis - culture sent if appropriate. Antibiotic electronically prescribed to pt's pharmacy of choice. Pt to call if symptoms do not improve. 11/28/2018 Appointment: Del[phone] (10 min) Simple 11/28/2018 Patient Education: Patient Medication Summary Completed 11/28/2018 Visit Plan: Sinusitis - Pt has acut e infection - pain in face, maxillary region, Pt informed to use decongestant, RX given to patient, sinus rinses also recommended. Call if symptoms do not show improvement. Allerg ies - chronic - recommended pt to use allergy medication as prescribed. Pt has been counseled as to the appropriate use of the medication. Pt to call if allergy symptoms are not controlled with the medication. If using nasal spray, instructions as follows: Nasal spray- use twice daily, one spray per nostril twice daily, after 30 minutes, rinse out nose with saline spray.. Use opposite hand per nostril to spray in the nasal steroid allergy spray. 10/26/2018 Appointment: Anna Horne WPtel: [facility]5 [facility] (30 min) Complex 10/26/2018 Patient Education: Patient Medication Summary Completed 10/26/2018 Visit Plan: Inflluenza A -patient's symptoms have resolved and she is feeling better -instructed her to call with any concerns or return of symptoms such as cough -patient verbalized understanding of plan. 08/09/2018 Appointment: Delmis Cheek WPtel: [facility] [place] [phone] (30 min) Complex 08/09/2018 Patient Education: Patient Medication Summary Completed 08/09/2018 Referral: Jayme Oliveira [facility] Patient informed. Referral info faxed. Completed 06/27/2018 Visit Plan: Hypertension - well con trolled - continue with current medications, continue with no added salt diet. Pt has been encouraged to exercise daily. The pt has been advised to call the office if there are any acute concerns about change in blood pressure readings at home. Hand pain - referral to Dr. Oliveira for bilateral hand pain/thumb pain. 06/14/2018 Appointment: Lorna Solis WPtel: [facility] (15 min) Moderate 06/14/2018 Patient Education: Patient Medication Summary Completed 06/14/2018 Care Plan: Referral Order SNOMED-CT : [id number] Pending 06/14/2018 Appointment: Lorna Solis WPtel: [facility] New Patient 04/19/2018 Visit Plan: Hypertension - well con trolled - continue with current medications, continue with [...] months based on previous levels of control. Hyperlip idemia - cut back on fat in diet [...] patient today. 04/12/2018 Appointment: Lorna Solis WPtel: [phone] [facility] [place] New Patient 04/12/2018 Patient Education: Patient Medication Summary Completed 04/12/2018 Patient Education: Cholesterol Management Completed 04/12/2018 Referral: [facility] Referral Appointment Requested Referral: Jayme Oliveira Referral Appointment Requested Instructions Comment . Sinusitis - Pt has acute infection - pain in face, maxillary region, Pt informed to use decongestant, RX given to patient, sinus rinses also recommended. Call if symptoms do not show improvement. Allergies - chronic - recommended pt to use allergy medication as prescribed. Pt has been counseled as to the appropriate use of the medication. Pt to call if allergy symptoms are not controlled with the medication. If using nasal spray, instructions as follows: Nasal spray- use twice daily, one spray per nostril twice daily, after 30 minutes, rinse out nose with saline spray.. Use opposite hand per nostril to spray in the nasal steroid allergy spray. . Hypertension - wel l controlled - continue with current medications, continue with no added salt diet. Pt has been encouraged to exercise daily. The pt has been advised to call the office if there are any acute concerns about change in blood pressure readings at home. Family Hx of CAD - referral to Dr. Urbina in [place] for stress testing. Hearing loss - tinnitus - referral to dr. espana Hyperlipidemia - pt has been counseled about appropriate diet, exercise, and need for low fat food choices. I have discussed the need for the patient to take medications as prescribed. If the patient has negative side effects from the medication, they are to CALL the office and not abruptly discontinue the medication without discussion with a practitioner in the office. We will check labs in 3-6 months for follow up on the patient's chronic medical problem and to assure normal liver response to medications. Hypothyroidism - pt with chronic hypothyroidism, continue with current medication, will monitor pt to signs or symptoms of lack of adequate supplementation. Pt is to continue with current dose of medication unless directed otherwise. Check labs at regular intervals q 3 months or q 6 months based on previous levels of control. start on the antibio tic - you will take the keflex 4 times daily - get an OTC probiotic - take it twice daily when taking the antibiotic. . UTI - pt with positive urinalysis - cu lture sent if appropriate. Antibiotic electronically prescribed to pt's pharmacy of choice. Pt to call if symptoms do not improve. Iliotibial band syndrome- recommended use of anti-inflammatories and pt given handout on Iliotibial band exercises. . Inflluenza A -dorothy ent's symptoms have resolved and she is feeling better -instructed her to call with any concerns or return of symptoms such as cough -patient verbalized understanding of plan. . UTI - pt with posi tive urinalysis - culture sent if appropriate. Antibiotic electronically prescribed to pt's pharmacy of choice. Pt to call if symptoms do not improve. 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 Hypertension - well controlled - breanna nue with current medications, continue with no added [...] given to patient today. . Hypertension - wel l controlled - continue with current medications, continue with no added salt diet. Pt has been encouraged to exercise daily. The pt has been advised to call the office if there are any acute concerns about change in blood pressure readings at home. Hand pain - referral to Dr. Oliveira for bilateral hand pain/thumb pain.
--- OUTSIDE RECORDS SUMMARY | 2019-12-17 19:45 | XMS REPORT | CCD ---
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 Name Role Phone PP Unavailable CCM Unavailable Summary Purpose Interface Exchange Insurance Providers Payer name Policy type / Coverage type Covered republican ID Effective Begin Date Effective End Date [employer] PPO Medicare Part B [id number] 2018 Unknown Family history Father Diagnosis Age [...] ntrosy unemployed 04/12/[address]: 663001960 Never smoker 04/12/[address]: 767372646 Never drinks alcohol 04/12/2018 Allergies, Adverse Reactions, Alerts Substance Reaction Codes Entered Date Inactivated Date Status amoxicillin RxNorm: 723 04/12/2018 N o Inactive Date Active bactrim RxNorm: 247051 04/12/2018 No Inactive Date Active ciprofloxacin RxNorm: 83846 11/28/2018 No Inactive Date Active Levaquin RxNorm: 01830 04/12/2018 No Inactive Date Active SULFA (SULFONAMIDE [...] Date Stop Date Sta tus Fill Instructions Keflex 500 mg capsule RxNorm: 403001 1 Capsule(s) PO QID 03/06/2019 03/12/2019 Active Crestor 10 mg tablet RxNorm: 776463 1 Tablet(s) PO daily 02/14/2019 03/15/2019 Active pt would like to get just 5 tabs to try and see if she can tolerat the medication Crestor 10 mg tablet RxNorm: 888797 1 Tablet(s) PO daily 02/14/2019 02/13/2019 Inactive pt would like to get just 5 tabs to try and see if she can tolerat the medication Lipitor 20 mg tablet RxNorm: 982424 1 Tablet(s) PO daily 02/10/2019 02/09/2019 Inactive Lipitor 20 mg tablet RxNorm: 385902 1 Tablet(s) PO daily 02/10/2019 02/13/2019 Inactive levothyroxine 150 mc g tablet RxNorm: 208118 TAKE 1 TABLET BY MOUT H THREE TIMES WEEKLY 01/17/2019 No Stop Date Active Keflex 500 mg capsule RxNorm: 451722 1 Capsule(s) PO TID 11/28/2018 12/04/2018 Inactive Zithromax Z-Isidro 250 mg tablet RxNorm: 816217 Tablet(s) PO UD 10/26/2018 02/06/2019 Inactive Kenalog 40 mg/mL jarrod pension for injection RxNorm: 7403636 Milliliter(s) Inj 10/26/2018 10/26/2018 In active lisinopril 20 mg-hyd rochlorothiazide 12.5 mg tablet RxNorm: 959057 1 Tablet(s) PO BID 06/14/2018 06/08/2019 Ac tive fluorouracil 5 % top ical cream RxNorm: 525340 1 Application TOP BID 06/14/2018 06/23/2018 Inactive levothyroxine 175 mc g tablet RxNorm: 148277 1 Tablet(s) PO every other day wednesday/wednesday/sat/sun 04/12/2018 04/06/2019 Active montelukast 10 mg ta blet RxNorm: 096625 1 Tablet(s) PO daily 04/12/2018 04/06/2019 Active ibuprofen 600 mg tablet RxNorm: 161299 1 Tablet(s) PO TID 04/12/2018 04/06/2019 Active allopurinol 300 mg t ablet RxNorm: 023006 1 Tablet(s) PO daily 04/12/2018 04/06/2019 Active ibuprofen 600 mg tablet RxNorm: 267584 1 Tablet(s) PO TID 04/12/2018 04/11/2018 Inactive lisinopril 20 mg-hyd rochlorothiazide 12.5 mg tablet RxNorm: 750291 1 Tablet(s) PO daily 04/12/2018 04/11/2018 Inactive lisinopril 20 mg-hyd rochlorothiazide 12.5 mg tablet RxNorm: 918940 1 Tablet(s) PO daily 04/12/2018 06/13/2018 Inactive amlodipine 5 mg tablet RxNorm: 687736 1 Tablet(s) PO daily 04/12/2018 04/11/2018 Inactive allopurinol 300 mg t ablet RxNorm: 433494 1 Tablet(s) PO daily 04/12/2018 04/11/2018 Inactive levothyroxine 150 mc g tablet RxNorm: 125349 1 Tablet(s) PO TIW 04/12/2018 01/16/2019 Inactive amlodipine 5 mg tablet RxNorm: 661585 1 Tablet(s) PO daily 04/12/2018 02/06/2019 Inactive garlic 1,000 mg capsule RxNorm: 515093 1 Capsule(s) PO daily No Start Date Active Hair,Skin,Nails with Biotin 7.5 mg-7.5 unit-1,250 mcg chewable tablet RxNorm: 1 Tablet(s) PO daily No Start Date Active Baby Aspirin 81 mg c hewable tablet RxNorm: 622150 3 Tablet(s) PO daily No Start Date Active levothyroxine 150 mc g tablet RxNorm: 573854 wed thur and 175 wed sat sun Tablet(s) PO No Start Date 04/11/2018 Inactive montelukast 10 mg ta blet RxNorm: 566262 1 Tablet(s) PO daily No Start Date 04/11/2018 Inactive Fish Oil 1,000 mg ca psule RxNorm: 4 Capsule(s) PO daily No Start Date 04/11/2018 Inactive Medication Administered Medication Codes Instruc tions Start Date Status Kenalog 40 mg/mL suspension for injection RxNorm: 8100787 Milliliter 10/26/2018 No longer Active Immunizations Vaccine [...] Observation Code Item Item Code Result Date Urine Culture Ucult Comp lete >100,000 col/ml aerobic grow th sent to ref lab 11/29/2018 Free T4 Ffq109 FREE T4 1.13 ng/dL 04/12/2018 Comp Metabolic Jpz135 NA 141 mEq/L 04/12/2018 Comp Metabolic Mex266 K 4.4 mEq/L 04/12/2018 Comp Metabolic Nex582 CL 103 mEq/L 04/12/2018 Comp Metabolic Urk710 CO2 31.0 mEq/L 04/12/2018 Comp Metabolic Ntf001 AN ION GAP 11 04/12/2018 Comp Metabolic Uki041 GL UCOSE 98 mg/dL 04/12/2018 Comp Metabolic Yjy882 Cr eat 0.7 mg/dL 04/12/2018 Comp Metabolic Hnr255 eG FR 84 ml/min/1.73m2 04/12 Comp Metabolic Pvq382 BUN 17 mg/dL 04/12/2018 Comp Metabolic Ihj882 B/ C Ratio 23.0 Ratio 04/12/2018 Comp Metabolic Fva687 CA LCIUM 10.0 mg/dL 04/12/2018 Comp Metabolic Umc351 AL K PHOS 70 U/L 04/12/2018 Comp Metabolic Ocx401 T(SGOT) 40 U/L 04/12/2018 Comp Metabolic Lrp231 AL T(SGPT) 48 U/L 04/12/2018 Comp Metabolic Ojp501 BI LI T 0.4 mg/dL 04/12/2018 Comp Metabolic Gtf689 AL BUMIN 4.2 g/dL 04/12/2018 Comp Metabolic Pjy719 TP RO 6.9 g/dL 04/12/2018 Comp Metabolic Okq724 GL OB 2.7 g/dL 04/12/2018 Comp Metabolic Syr533 A/ G Ratio 1.6 Ratio 04/12/2018 Comp Metabolic Xgs142 Os mo 283 mOsmo 04/12/2018 Uric Acid [...] 29.4 pg 04/12/2018 Cbc With Differential Ord2 [place]% 12.3 % 04/12/2018 Cbc With Differential Ord2 [...] 2.02 K/ul 04/12/2018 Cbc With Differential Ord2 [place] ABS# 0.6 K/ul 04/12/2018 Cbc With Differential [...] accomodation 02/07/2019 None Full Exam - General 1995 Ears/Nose/Throat otoscopic exam Overall: external auditory canals clear 02/07/2019 None Full Exam - General 1995 Ears/Nose/Throat otoscopic exam Overall: tympanic membranes clear 02/07/2019 None Full Exam - General 1995 Ears/Nose/Throat lips/teeth/gingiva Overall: benign lips 02/07/2019 None Full Exam - General 1995 Ears/Nose/Throat lips/teeth/gingiva Overall: normal dentition 02/07/2019 None Full Exam - General 1995 Ears/Nose/Throat oral cavity/pharynx/larynx Overall: oral mucosa clear 02/07/2019 None Full Exam - General 1995 Ears/Nose/Throat oral cavity/pharynx/larynx Overall: oropharyngeal mucosa clear 02/07/2019 None Full Exam - General 1995 Ears/Nose/Throat oral cavity/pharynx/larynx Overall: hypopharynx benign 02/07/2019 [...] Date URINALYSIS NONAUTO W /O SCOPE CPT-4: 27885 03/06/2019 URINALYSIS NONAUTO W /O SCOPE CPT-4: 16061 11/28/2018 THER/PROPH/DIAG INJ SC/IM CPT-4: 00179 10/26/2018 TRIAMCINOLONE ACET I [place] NOS CPT-4: J3301 10/26/2018 Vital Signs Date Vital 03/06/2019 Blood Pressure 1: 130/78 Code: 8480-6 Heart Rate 1: 81 bpm Height: 5'8" SpO2: 95% Temperature: 36.7 (C ) / 98.0 (F) Weight: 02/07/2019 Blood Pressure 1: 140/82 Code: 8480-6 BMI: 44.1 Code: 59359-3 Heart Rate 1: 70 bpm Height: 5'8" SpO2: 95% Weight: 290 lbs 11/28/2018 Blood Pressure 1: 132/78 Code: 8480-6 BMI: 44.6 Code: 76568-2 Heart Rate 1: 85 bpm Height: 5'8" SpO2: 96% Weight: 293 lbs 10/26/2018 Blood Pressure 1: 154/88 Code: 8480-6 BMI: 44.6 Code: 66401-9 Heart Rate 1: 78 bpm Height: 5'8" SpO2: 96% Weight: 293 lbs 08/09/2018 Blood Pressure 1: 120/84 Code: 8480-6 Heart Rate 1: 71 bpm Height: SpO2: 96% Weight: 06/14/2018 Blood Pressure 1: 136/84 Code: 8480-6 BMI: 43.8 Code: 69031-6 Heart Rate 1: 73 bpm Height: 5'8" SpO2: 96% Weight: 288 lbs 04/12/2018 Blood Pressure 1: 138/86 Code: 8480-6 BMI: 43.0 Code: 74864-1 Heart Rate 1: 61 bpm Height: 5'8" [...] Encounters Encounter Performer Loca tion Codes Date ([id number]) [id number] EST. P ATIENT, LEVEL IV Diagnosis: Gross hematuria[ICD10: R31.0] Diagnosis: Urinary tract infection, site not specified[ICD10: N39.0] Diagnosis: Pain in right leg[ICD10: M79.604] Lorna Solis MD, [facility] CPT-4: 40833 03/06/2019 ([id number]) 91570 EST. P ATIENT, LEVEL IV Diagnosis: Atrophy of thyroid (acquired)[ICD10: E03.4] Diagnosis: Essential (primary) hypertension[ICD10: I10] Diagnosis: Mixed hyperlipidemia[ICD10: E78.2] Diagnosis: Tinnitus, left ear[ICD10: H93.12] Lorna Solis MD, [facility] CPT-4: 36222 02/07/2019 ([id number]) [id number] EST. P ATIENT, LEVEL II Diagnosis: Urinary tract infection, site not specified[ICD10: N39.0] Delmis Solis MD, [facility] CPT-4: 71833 11/28/2018 91550 EST. PATIENT, LEVEL III Diagnosis: Other acute sinusitis[ICD10: J01.80] Diagnosis: Other allergic rhinitis[ICD10: J30.89] Anna Solis MD, [facility] CPT-4: 97730 10/26/2018 ([id number]) 89016 EST. P ATIENT, LEVEL III Diagnosis: Influenza due to identified novel influenza A virus with other manifestations[ICD10: J09.X9] Delmis Solis MD, [facility] CPT-4: 60883 08/09/2018 ([id number]) [id number] EST. P ATIENT, LEVEL III Diagnosis: Essential (primary) hypertension[ICD10: I10] Diagnosis: Pain in right finger(s)[ICD10: M79.644] Diagnosis: Pain in left finger(s)[ICD10: M79.645] Lorna Solis MD, [facility] CPT-4: 51567 06/14/2018 ([id number]) 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 Antibiotic electronically prescribed to pt's pharmacy of choice. Pt to call if symptoms do not improve. Iliotibial band syndrome- recommended use of anti-inflammatories and pt given handout on Iliotibial band exercises. 03/06/2019 Patient Education: Patient Medication Summary Completed [...] CAD - referral to Dr. Urbina in [place] for stress testing. Hearing loss - tinnitus [...] of control. 02/07/2019 Appointment: Lorna Solis WPtel: [address] [place], [place] [phone] (15 min) Moderate 02/07/2019 Patient Education: Patient Medication Summary Completed 02/07/2019 Patient Education: Cholesterol Management Completed 02/07/2019 Care Plan: Comp Metabolic Pending 02/07/2019 Care Plan: Cbc With Differential Pending 02/07/2019 Care Plan: Tsh Pending 02/07/2019 Care Plan: Lipid Pending 02/07/2019 Care Plan: Free T4 Pending 02/07/2019 Care Plan: Referral Order SNOMED-CT : [id number] Pending 02/07/2019 Visit Plan: UTI - pt with positive urinalysis - culture sent if appropriate. Antibiotic electronically prescribed to pt's pharmacy of choice. Pt to call if symptoms do not improve. 11/28/2018 Appointment: Delmis Cheek WPtel: [facility] [place] (10 min) Simple 11/28/2018 Patient Education: Patient [...] allergy spray. 10/26/2018 Appointment: Anna Horne WPtel: [address] [place] [address] (30 min) Complex 10/26/2018 Patient Education: Patient Medication Summary Completed 10/26/2018 Visit Plan: Inflluenza A -patient's symptoms have resolved and she is feeling better -instructed her to call with any concerns or return of symptoms such as cough -patient verbalized understanding of plan. 08/09/2018 Appointment: Delmis Cheek WPtel: [facility] [place]7 [address] (30 min) Complex 08/09/2018 Patient Education: Patient Medication Summary Completed 08/09/2018 Referral: Jayme Oliveira [facility] Patient informed. Referral info faxed. Completed 06/27/2018 [...] pain/thumb pain. 06/14/2018 Appointment: Lorna Solis WPtel: [address] [place] [address] (15 min) Moderate 06/14/2018 Patient Education: Patient Medication Summary Completed 06/14/2018 Care Plan: Referral Order SNOMED-CT : 660693860 Pending 06/14/2018 Appointment: Lorna Solis WPtel: [address] [place] [address] New Patient 04/19/2018 Visit Plan: Hypertension - [...] patient today. 04/12/2018 Appointment: Lorna Solis WPtel: [address] [place] [address] New Patient 04/12/2018 Patient Education: Patient Medication Summary Completed 04/12/2018 Patient Education: Cholesterol Management Completed 04/12/2018 Referral: [facility] Referral Appointment Requested Referral: Jayme Oliveira [facility] Referral Appointment Requested Instructions Comment . Sinusitis [...] CAD - referral to Dr. Urbina in [place] for stress testing. Hearing loss - tinnitus [...]
--- OUTSIDE RECORDS SUMMARY | 2019-12-17 19:45 | XMS REPORT | CCD ---
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 [employer] Name Role Phone PP Unavailable CCM Unavailable Summary Purpose Interface Exchange Insurance Providers Payer name Policy type / Coverage type Covered libertarian ID Effective Begin Date Effective End Date [employer] PPO Medicare Part B [id number] 2018 Unknown Family history Father Diagnosis Age [...] ntrosy unemployed 04/12/[address]: 385861403 Never smoker 04/12/[address]: 042659492 Never drinks alcohol 04/12/2018 Allergies, Adverse Reactions, Alerts Substance Reaction Codes Entered Date Inactivated Date Status amoxicillin RxNorm: 723 04/12/2018 N o Inactive Date Active bactrim RxNorm: 500528 04/12/2018 No Inactive Date Active ciprofloxacin RxNorm: 69646 11/28/2018 No Inactive Date Active Levaquin RxNorm: 76863 04/12/2018 No Inactive Date Active SULFA (SULFONAMIDE [...] Date Stop Date Sta tus Fill Instructions Crestor 10 mg tablet RxNorm: 058088 1 Tablet(s) PO daily 03/10/2019 08/06/2019 Active Keflex 500 mg capsule RxNorm: 996350 1 Capsule(s) PO QID 03/06/2019 03/12/2019 Active Crestor 10 mg tablet RxNorm: 827855 1 Tablet(s) PO daily 02/14/2019 03/09/2019 Inactive pt would like to get just 5 tabs to try and see if she can tolerat the medication Crestor 10 mg tablet RxNorm: 976124 1 Tablet(s) PO daily 02/14/2019 02/13/2019 Inactive pt would like to get just 5 tabs to try and see if she can tolerat the medication Lipitor 20 mg tablet RxNorm: 044457 1 Tablet(s) PO daily 02/10/2019 02/09/2019 Inactive Lipitor 20 mg tablet RxNorm: 279425 1 Tablet(s) PO daily 02/10/2019 02/13/2019 Inactive levothyroxine 150 mc g tablet RxNorm: 529461 TAKE 1 TABLET BY MOUT H THREE TIMES WEEKLY 01/17/2019 No Stop Date Active Keflex 500 mg capsule RxNorm: 476218 1 Capsule(s) PO TID 11/28/2018 12/04/2018 Inactive Zithromax Z-Isidro 250 mg tablet RxNorm: 280867 Tablet(s) PO UD 10/26/2018 02/06/2019 Inactive Kenalog 40 mg/mL jarrod pension for injection RxNorm: 1568713 Milliliter(s) Inj 10/26/2018 10/26/2018 In active lisinopril 20 mg-hyd rochlorothiazide 12.5 mg tablet RxNorm: 503362 1 Tablet(s) PO BID 06/14/2018 06/08/2019 Ac tive fluorouracil 5 % top ical cream RxNorm: 721168 1 Application TOP BID 06/14/2018 06/23/2018 Inactive levothyroxine 175 mc g tablet RxNorm: 886752 1 Tablet(s) PO every other day wednesday/wednesday/sat/sun 04/12/2018 04/06/2019 Active montelukast 10 mg ta blet RxNorm: 729697 1 Tablet(s) PO daily 04/12/2018 04/06/2019 Active ibuprofen 600 mg tablet RxNorm: 431798 1 Tablet(s) PO TID 04/12/2018 04/06/2019 Active allopurinol 300 mg t ablet RxNorm: 677292 1 Tablet(s) PO daily 04/12/2018 04/06/2019 Active ibuprofen 600 mg tablet RxNorm: 604072 1 Tablet(s) PO TID 04/12/2018 04/11/2018 Inactive lisinopril 20 mg-hyd rochlorothiazide 12.5 mg tablet RxNorm: 429262 1 Tablet(s) PO daily 04/12/2018 04/11/2018 Inactive lisinopril 20 mg-hyd rochlorothiazide 12.5 mg tablet RxNorm: 289286 1 Tablet(s) PO daily 04/12/2018 06/13/2018 Inactive amlodipine 5 mg tablet RxNorm: 656351 1 Tablet(s) PO daily 04/12/2018 04/11/2018 Inactive allopurinol 300 mg t ablet RxNorm: 581378 1 Tablet(s) PO daily 04/12/2018 04/11/2018 Inactive levothyroxine 150 mc g tablet RxNorm: 058564 1 Tablet(s) PO TIW 04/12/2018 01/16/2019 Inactive amlodipine 5 mg tablet RxNorm: 331488 1 Tablet(s) PO daily 04/12/2018 02/06/2019 Inactive garlic 1,000 mg capsule RxNorm: 728240 1 Capsule(s) PO daily No Start Date Active Hair,Skin,Nails with Biotin 7.5 mg-7.5 unit-1,250 mcg chewable tablet RxNorm: 1 Tablet(s) PO daily No Start Date Active Baby Aspirin 81 mg c hewable tablet RxNorm: 619496 3 Tablet(s) PO daily No Start Date Active levothyroxine 150 mc g tablet RxNorm: 534221 wed thur and 175 fri sat sun Tablet(s) PO No Start Date 04/11/2018 Inactive montelukast 10 mg ta blet RxNorm: 037323 1 Tablet(s) PO daily No Start Date 04/11/2018 Inactive Fish Oil 1,000 mg ca psule RxNorm: 4 Capsule(s) PO daily No Start Date 04/11/2018 Inactive Medication Administered Medication Codes Instruc tions Start Date Status Kenalog 40 mg/mL suspension for injection RxNorm: 7297123 Milliliter 10/26/2018 No longer Active Immunizations Vaccine [...] sent to ref lab 11/29/2018 Free T4 Fon425 FREE T4 1.13 ng/dL 04/12/2018 Comp Metabolic Fjs936 NA 141 mEq/L 04/12/2018 Comp Metabolic Ubs043 K 4.4 mEq/L 04/12/2018 Comp Metabolic Duw548 CL 103 mEq/L 04/12/2018 Comp Metabolic Cll590 CO2 31.0 mEq/L 04/12/2018 Comp Metabolic Rzo348 AN ION GAP 11 04/12/2018 Comp Metabolic Eww960 GL UCOSE 98 mg/dL 04/12/2018 Comp Metabolic Vfq742 Cr eat 0.7 mg/dL 04/12/2018 Comp Metabolic Lyg667 eG FR 84 ml/min/1.73m2 04/12 Comp Metabolic Brh211 BUN 17 mg/dL 04/12/2018 Comp Metabolic Kon538 B/ C Ratio 23.0 Ratio 04/12/2018 Comp Metabolic Pjt696 CA LCIUM 10.0 mg/dL 04/12/2018 Comp Metabolic Mtl463 AL K PHOS 70 U/L 04/12/2018 Comp Metabolic Nba752 T(SGOT) 40 U/L 04/12/2018 Comp Metabolic Wbc661 AL T(SGPT) 48 U/L 04/12/2018 Comp Metabolic Xeu828 BI LI T 0.4 mg/dL 04/12/2018 Comp Metabolic Xay838 AL BUMIN 4.2 g/dL 04/12/2018 Comp Metabolic Hci449 TP RO 6.9 g/dL 04/12/2018 Comp Metabolic Zsw804 GL OB 2.7 g/dL 04/12/2018 Comp Metabolic Fgk075 A/ G Ratio 1.6 Ratio 04/12/2018 Comp Metabolic Udi854 Os mo 283 mOsmo 04/12/2018 Uric Acid [...] 29.4 pg 04/12/2018 Cbc With Differential Ord2 [place]% 12.3 % 04/12/2018 Cbc With Differential [...] 2.02 K/ul 04/12/2018 Cbc With Differential Ord2 [place] ABS# 0.6 K/ul 04/12/2018 Cbc With [...] 1994 Ears/Nose/Throat oral cavity/pharynx/larynx Overall: no masses 02/07/2019 [...] clear 04/12/2018 None Full Exam - General 1995 Ears/Nose/Throat [...] Date URINALYSIS NONAUTO W /O SCOPE CPT-4: 38841 03/06/2019 URINALYSIS NONAUTO W /O SCOPE CPT-4: 16734 11/28/2018 THER/PROPH/DIAG INJ SC/IM CPT-4: 64114 10/26/2018 TRIAMCINOLONE ACET I [place] NOS CPT-4: J3301 10/26/2018 Vital Signs Date Vital 03/06/2019 Blood Pressure 1: 130/78 Code: 8480-6 Heart Rate 1: 81 bpm Height: 5'8" SpO2: 95% Temperature: 36.7 (C ) / 98.0 (F) Weight: 02/07/2019 Blood Pressure 1: 140/82 Code: 8480-6 BMI: 44.1 Code: 49211-8 Heart Rate 1: 70 bpm Height: 5'8" SpO2: 95% Weight: 290 lbs 11/28/2018 Blood Pressure 1: 132/78 Code: 8480-6 BMI: 44.6 Code: 24959-4 Heart Rate 1: 85 bpm Height: 5'8" SpO2: 96% Weight: 293 lbs 10/26/2018 Blood Pressure 1: 154/88 Code: 8480-6 BMI: 44.6 Code: 44066-1 Heart Rate 1: 78 bpm Height: 5'8" SpO2: 96% Weight: 293 lbs 08/09/2018 Blood Pressure 1: 120/84 Code: 8480-6 Heart Rate 1: 71 bpm Height: SpO2: 96% Weight: 06/14/2018 Blood Pressure 1: 136/84 Code: 8480-6 BMI: 43.8 Code: 46511-3 Heart Rate 1: 73 bpm Height: 5'8" SpO2: 96% Weight: 288 lbs 04/12/2018 Blood Pressure 1: 138/86 Code: 8480-6 BMI: 43.0 Code: 21245-7 Heart Rate 1: 61 bpm Height: 5'8" [...] Encounters Encounter Performer Loca tion Codes Date ([id number]) [id number] EST. P ATIENT, LEVEL IV Diagnosis: Gross hematuria[ICD10: R31.0] Diagnosis: Urinary tract infection, site not specified[ICD10: N39.0] Diagnosis: Pain in right leg[ICD10: M79.604] Lorna Solis MD, [facility] CPT-4: 73023 03/06/2019 ([id number]) [id number] EST. P ATIENT, LEVEL IV Diagnosis: Atrophy of thyroid (acquired)[ICD10: E03.4] Diagnosis: Essential (primary) hypertension[ICD10: I10] Diagnosis: Mixed hyperlipidemia[ICD10: E78.2] Diagnosis: Tinnitus, left ear[ICD10: H93.12] Lorna Solis MD, [facility] CPT-4: 51582 02/07/2019 ([id number]) 43813 EST. P ATIENT, LEVEL II Diagnosis: Urinary tract infection, site not specified[ICD10: N39.0] Delmis Solis MD, [facility] CPT-4: 17540 11/28/2018 20352 EST. PATIENT, LEVEL III Diagnosis: Other acute sinusitis[ICD10: J01.80] Diagnosis: Other allergic rhinitis[ICD10: J30.89] Anna Solis MD, [facility] CPT-4: 29356 10/26/2018 ([id number]) 35873 EST. P ATIENT, LEVEL III Diagnosis: Influenza due to identified novel influenza A virus with other manifestations[ICD10: J09.X9] Delmis Solis MD, [facility] CPT-4: 54793 08/09/2018 ([id number]) 38696 EST. 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 Antibiotic electronically prescribed to pt's pharmacy of choice. Pt to call if symptoms do not improve. Iliotibial band syndrome- recommended use of anti-inflammatories and pt given handout on Iliotibial band exercises. 03/06/2019 Appointment: Lorna Solis WPtel: [facility] (15 min) Moderate 03/06/2019 Patient Education: Patient [...] CAD - referral to Dr. Urbina in [place] for stress testing. Hearing loss - tinnitus [...] of control. 02/07/2019 Appointment: Lorna Solis WPtel: [phone] [facility] (15 min) Moderate 02/07/2019 Patient Education: Patient Medication Summary Completed 02/07/2019 Patient Education: Cholesterol Management Completed 02/07/2019 Care Plan: Comp Metabolic Pending 02/07/2019 Care Plan: Cbc With Differential Pending 02/07/2019 Care Plan: Tsh Pending 02/07/2019 Care Plan: Lipid Pending 02/07/2019 Care Plan: Free T4 Pending 02/07/2019 Care Plan: Referral Order SNOMED-CT : [id number] Pending 02/07/2019 Visit Plan: UTI - pt with positive urinalysis - culture sent if appropriate. Antibiotic electronically prescribed to pt's pharmacy of choice. Pt to call if symptoms do not improve. 11/28/2018 Appointment: Delmis Cheek WPtel: [phone] [phone] [place] (10 min) Simple 11/28/2018 Patient Education: Patient [...] allergy spray. 10/26/2018 Appointment: [phone] (30 min) Complex 10/26/2018 Patient Education: Patient Medication Summary Completed 10/26/2018 Visit Plan: Perla Squires -patient's symptoms have resolved and she is feeling better -instructed her to call with any concerns or return of symptoms such as cough -patient verbalized understanding of plan. 08/09/2018 Appointment: Delmis Cheek WPtel: [phone] [facility] (30 min) Complex 08/09/2018 Patient Education: Patient Medication Summary Completed 08/09/2018 Referral: Jayme Oliveira [facility] Patient informed. Referral info faxed. Completed 06/27/2018 [...] pain/thumb pain. 06/14/2018 Appointment: Lorna Solis WPtel: [facility] (15 min) Moderate 06/14/2018 Patient Education: Patient Medication Summary Completed 06/14/2018 Care Plan: Referral Order SNOMED-CT : 758012600 Pending 06/14/2018 Appointment: Lorna Solis WPtel: [facility] New Patient 04/19/2018 Visit Plan: Hypertension [...] patient today. 04/12/2018 Appointment[phone] [facility] 04/12/2018 Patient Education: Patient Medication Summary Completed 04/12/2018 Patient Education: Cholesterol Management Completed 04/12/2018 Referral: [facility] Referral Appointment Requested Referral: Jayme Oliveira [facility] Referral Appointment Requested Instructions Comment . Sinusitis [...] CAD - referral to Dr. Urbina in [place] for stress testing. Hearing loss - tinnitus [...]
--- OUTSIDE RECORDS SUMMARY | 2019-12-17 19:46 | XMS REPORT | CCD ---
Author Author Nancy Solis Organization Lorna Solis MD, [facility] Address [address] [place] [address] Phone Care Team Providers Care Detective Sergeant Name Role Phone PP Unavailable CCM Unavailable Summary Purpose Interface Exchange Insurance Providers Payer name Policy type / Coverage type Covered constitution party ID Effective Begin Date Effective End Date Advantra PPO Medicare Part B [id number] 2018 Unknown Family history Father Diagnosis Age At Onset kidney disease Unknown Diabetes mellitus Type 2 Unknown Hypertension Unknown Mother Diagnosis Age At Onset Coronary Artery Disease Unknown Cancer Unknown Stroke Unknown Diabetes mellitus Type 2 Unknown Social History Social History Element Codes Description Effective Dates Marital status Unknown Leif Short 04/12/2018 Number of children Unknown 4 04/12/2018 Employment Unknown Luis Felipe farfan unemployed 04/12/[address]: 945430373 Never smoker 04/12/[address]: 401273088 Never drinks alcohol 04/12/2018 Allergies, Adverse Reactions, Alerts Substance Reaction Codes Entered Date Inactivated Date Status amoxicillin RxNorm: 723 04/12/2018 N o Inactive Date Active bactrim RxNorm: 107987 04/12/2018 No Inactive Date Active * NO KNOWN DRUG EKTA RGIES Unknown 04/12/2018 No Inactive Date Active ciprofloxacin RxNorm: 28095 11/28/2018 No Inactive Date Active Levaquin RxNorm: 37061 04/12/2018 No Inactive Date Active SULFA (SULFONAMIDE A NTIBIOTICS) Unknown 04/12/2018 No Inactive Date Active Past Medical History Illness Codes Condition Status Onset Date Resolved Date Urinary tract infect ion, site not specified ICD-9: 599.0 ICD-10: N39.0 Active 11/28/2018 Unknown Other acute sinusitis ICD-9: 461.8 ICD-10: J01.80 Active 10/26/2018 Unknown Other allergic rhinitis ICD-9: 477.8 ICD-10: J30.89 Active 10/26/2018 Unknown Influenza due to britta ntified novel influenza A virus with other manifestations ICD-9: 488.09 ICD-10: J09.X9 Active 08/09/2018 Unknown Essential (primary) hypertension ICD-9: 401.1 ICD-10: I10 Active 04/12/2018 Unknown Pain in left finger(s) ICD-9: 729.5 ICD-10: M79.645 Active 04/12/2018 Unknown Pain in right finger(s) ICD-9: 729.5 ICD-10: M79.644 Active 04/12/2018 Unknown Atrophy of thyroid ( acquired) ICD-9: 244.8 ICD-10: E03.4 Active 04/12/2018 Unknown Mixed hyperlipidemia ICD-9: 272.2 ICD-10: E78.2 Active 04/12/2018 Unknown 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 Active 04/12/2018 Unknown Problems Condition Codes Effectiv e Dates Condition Status Urinary tract infect ion, site not specified ICD-9: 599.0 ICD-10: N39.0 11/28/2018 Active Other acute sinusitis ICD-9: 461.8 ICD-10: J01.80 10/26/2018 Active Other allergic rhinitis ICD-9: 477.8 ICD-10: J30.89 10/26/2018 Active Influenza due to britta ntified novel influenza A virus with other manifestations ICD-9: 488.09 ICD-10: J09.X9 08/09/2018 Active Essential (primary) hypertension ICD-9: 401.1 ICD-10: I10 04/12/2018 Active Pain in left finger(s) ICD-9: 729.5 ICD-10: M79.645 04/12/2018 Active Pain in right finger(s) ICD-9: 729.5 ICD-10: M79.644 04/12/2018 Active Atrophy of thyroid ( acquired) ICD-9: 244.8 ICD-10: E03.4 04/12/2018 Active Mixed hyperlipidemia ICD-9: 272.2 ICD-10: E78.2 04/12/2018 Active 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 04/12/2018 Active Medications Medication Codes Instruc tions Start Date Stop Date Sta tus Fill Instructions levothyroxine 150 mc g tablet RxNorm: 397511 TAKE 1 TABLET BY MOUT H THREE TIMES WEEKLY 01/17/2019 No Stop Date Active Keflex 500 mg capsule RxNorm: 570500 1 Capsule(s) PO TID 11/28/2018 12/04/2018 Inactive Zithromax Z-Isidro 250 mg tablet RxNorm: 261416 Tablet(s) PO UD 10/26/2018 No Stop Date Active Kenalog 40 mg/mL jarrod pension for injection RxNorm: 5250331 Milliliter(s) Inj 10/26/2018 10/26/2018 In active lisinopril 20 mg-hyd rochlorothiazide 12.5 mg tablet RxNorm: 907205 1 Tablet(s) PO BID 06/14/2018 06/08/2019 Ac tive fluorouracil 5 % top ical cream RxNorm: 115985 1 Application TOP BID 06/14/2018 06/23/2018 Inactive levothyroxine 175 mc g tablet RxNorm: 880176 1 Tablet(s) PO every other day wednesday/wednesday/sat/sun 04/12/2018 04/06/2019 Active montelukast 10 mg ta blet RxNorm: 775756 1 Tablet(s) PO daily 04/12/2018 04/06/2019 Active ibuprofen 600 mg tablet RxNorm: 351439 1 Tablet(s) PO TID 04/12/2018 04/06/2019 Active amlodipine 5 mg tablet RxNorm: 215619 1 Tablet(s) PO daily 04/12/2018 04/06/2019 Active allopurinol 300 mg t ablet RxNorm: 780340 1 Tablet(s) PO daily 04/12/2018 04/06/2019 Active ibuprofen 600 mg tablet RxNorm: 873025 1 Tablet(s) PO TID 04/12/2018 04/11/2018 Inactive lisinopril 20 mg-hyd rochlorothiazide 12.5 mg tablet RxNorm: 690807 1 Tablet(s) PO daily 04/12/2018 04/11/2018 Inactive lisinopril 20 mg-hyd rochlorothiazide 12.5 mg tablet RxNorm: 130903 1 Tablet(s) PO daily 04/12/2018 06/13/2018 Inactive amlodipine 5 mg tablet RxNorm: 589723 1 Tablet(s) PO daily 04/12/2018 04/11/2018 Inactive allopurinol 300 mg t ablet RxNorm: 862798 1 Tablet(s) PO daily 04/12/2018 04/11/2018 Inactive levothyroxine 150 mc g tablet RxNorm: 480226 1 Tablet(s) PO TIW 04/12/2018 01/16/2019 Inactive garlic 1,000 mg capsule RxNorm: 076078 1 Capsule(s) PO daily No Start Date Active Hair,Skin,Nails with Biotin 7.5 mg-7.5 unit-1,250 mcg chewable tablet RxNorm: 1 Tablet(s) PO daily No Start Date Active Baby Aspirin 81 mg c hewable tablet RxNorm: 226937 3 Tablet(s) PO daily No Start Date Active levothyroxine 150 mc g tablet RxNorm: 310292 wed thur and Wed sat sun Tablet(s) PO No Start Date 04/11/2018 Inactive montelukast 10 mg ta blet RxNorm: 657735 1 Tablet(s) PO daily No Start Date 04/11/2018 Inactive Fish Oil 1,000 mg ca psule RxNorm: 4 Capsule(s) PO daily No Start Date 04/11/2018 Inactive Medication Administered Medication Codes Instruc tions Start Date Status Kenalog 40 mg/mL suspension for injection RxNorm: 3985577 Milliliter 10/26/2018 No longer Active Immunizations Vaccine Codes Date Status Tetanus, Diptheria, Pertussis CVX: 113 05/19/2017 completed Tetanus/Diptheria CVX: 113 05/19/2017 completed Assessments Condition Codes Effectiv e Dates Urinary tract infection, site not specified ICD-10: N39.0 ICD-9: 599.0 11/28/2018 Other allergic rhinitis ICD-10: J30. 89 ICD-9: 477.8 10/26/2018 Other acute sinusitis ICD-10: J01.80 ICD-9: 461.8 10/26/2018 Influenza due to identified novel influe nza A virus with other manifestations ICD-10: J09.X9 ICD-9: 488.09 08/09/2018 Pain in right finger(s) ICD-10: M79. 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 ICD-9: 277.2 04/12/2018 Reason For Visit Reason For Visit Effective Dates Notes dysuria 11/28/2018 sinus congestion 10/26/2018 cough 08/09/2018 hypertension 06/14/2018 urinary urgency 04/12/2018 Results Observation Observation Code Item Item Code Result Date Urine Culture Ucult Comp lete >100,000 col/ml aerobic grow th sent to ref lab 11/29/2018 Free T4 Jag028 FREE T4 1.13 ng/dL 04/12/2018 Comp Metabolic Ggi585 NA 141 mEq/L 04/12/2018 Comp Metabolic Dzs270 K 4.4 mEq/L 04/12/2018 Comp Metabolic Qij433 CL 103 mEq/L 04/12/2018 Comp Metabolic Qyy073 CO2 31.0 mEq/L 04/12/2018 Comp Metabolic Inm132 AN ION GAP 11 04/12/2018 Comp Metabolic Brc057 GL UCOSE 98 mg/dL 04/12/2018 Comp Metabolic Yet094 Cr eat 0.7 mg/dL 04/12/2018 Comp Metabolic Dff516 eG FR 84 ml/min/1.73m2 04/12 Comp Metabolic Bzt976 BUN 17 mg/dL 04/12/2018 Comp Metabolic Auw350 B/ C Ratio 23.0 Ratio 04/12/2018 Comp Metabolic Dko936 CA LCIUM 10.0 mg/dL 04/12/2018 Comp Metabolic Yvy851 AL K PHOS 70 U/L 04/12/2018 Comp Metabolic Vuz583 T(SGOT) 40 U/L 04/12/2018 Comp Metabolic Gbb836 AL T(SGPT) 48 U/L 04/12/2018 Comp Metabolic Mlz360 BI LI T 0.4 mg/dL 04/12/2018 Comp Metabolic Pni266 AL BUMIN 4.2 g/dL 04/12/2018 Comp Metabolic Aeu910 TP RO 6.9 g/dL 04/12/2018 Comp Metabolic Cqb510 GL OB 2.7 g/dL 04/12/2018 Comp Metabolic Bfl947 A/ G Ratio 1.6 Ratio 04/12/2018 Comp Metabolic Jrz850 Os mo 283 mOsmo 04/12/2018 Uric Acid [...] 29.4 pg 04/12/2018 Cbc With Differential Ord2 [place]% 12.3 % 04/12/2018 Cbc With Differential Ord2 [...] 2.02 K/ul 04/12/2018 Cbc With Differential Ord2 [place] ABS# 0.6 K/ul 04/12/2018 Cbc With Differential [...] Result Effective Dates Constitutional No recent illness 11/28/2018 Constitutional No [...] Date URINALYSIS NONAUTO W /O SCOPE CPT-4: 04033 11/28/2018 THER/PROPH/DIAG INJ SC/IM CPT-4: 92235 10/26/2018 TRIAMCINOLONE ACET I [place] NOS CPT-4: J3301 10/26/2018 Vital Signs Date Vital 11/28/2018 Blood Pressure 1: 132/78 Code: 8480-6 BMI: 44.6 Code: 02895-7 Heart Rate 1: 85 bpm Height: 5'8" SpO2: 96% Weight: 293 lbs 10/26/2018 Blood Pressure 1: 154/88 Code: 8480-6 BMI: 44.6 Code: 50472-8 Heart Rate 1: 78 bpm Height: 5'8" SpO2: 96% Weight: 293 lbs 08/09/2018 Blood Pressure 1: 120/84 Code: 8480-6 Heart Rate 1: 71 bpm Height: SpO2: 96% Weight: 06/14/2018 Blood Pressure 1: 136/84 Code: 8480-6 BMI: 43.8 Code: 64241-7 Heart Rate 1: 73 bpm Height: 5'8" SpO2: 96% Weight: 288 lbs 04/12/2018 Blood Pressure 1: 138/86 Code: 8480-6 BMI: 43.0 Code: 02656-7 Heart Rate 1: 61 bpm Height: 5'8" SpO2: 97% Weight: 283 lbs Functional Status No Functional Status data History of Present Illness Symptom Name Status Resu lt Effective Date Notes Quality intermittent 11/28/2018 None Onset and Resolution [...] Encounters Encounter Performer Loca tion Codes Date ([id number]) [id number] EST. P ATIENT, LEVEL II Diagnosis: Urinary tract infection, site not specified[ICD10: N39.0] [facility] CPT-4: 24552 11/28/2018 73434 EST. PATIENT, LEVEL III Diagnosis: Other acute sinusitis[ICD10: J01.80] Diagnosis: Other allergic rhinitis[ICD10: J30.89] [facility] CPT-4: 45195 10/26/2018 ([id number]) 84107 EST. P ATIENT, LEVEL III Diagnosis: Influenza due to identified novel influenza A virus with other manifestations[ICD10: J09.X9] [facility] CPT-4: 98597 08/09/2018 ([id number]) 78961 EST. 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 Antibiotic electronically prescribed to pt's pharmacy of choice. Pt to call if symptoms do not improve. 11/28/2018 Appointment: Delmis Cheek WPtel: [address] [place], [place] [phone] (10 min) Simple 11/28/2018 Patient Education: Patient [...] allergy spray. 10/26/2018 Appointment: Anna Horne WPtel: [facility] (30 min) Complex 10/26/2018 Patient Education: Patient Medication Summary Completed 10/26/2018 Visit Plan: Perla A -patient's symptoms have resolved and she is feeling better -instructed her to call with any concerns or return of symptoms such as cough -patient verbalized understanding of plan. 08/09/2018 Appointment: Delmis Cheek WPtel: [phone] (30 min) Complex 08/09/2018 Patient Education: Patient Medication Summary Completed 08/09/2018 Referral: Jayme Oliveira [facility] Patient informed. Referral info faxed. Completed 06/27/2018 [...] pain/thumb pain. 06/14/2018 Appointment: Lorna Solis WPtel: [address] [place] [address] (15 min) Moderate 06/14/2018 Patient Education: Patient Medication Summary Completed 06/14/2018 Care Plan: Referral Order SNOMED-CT : [id number] Pending 06/14/2018 Appointment: Lorna Solis WPtel: [address] [place], [place] [address] New Patient 04/19/2018 Visit Plan: Hypertension - [...] today. 04/12/2018 Appointment: Lorna Solis WPtel: [address] [place], [place] [phone] New Patient 04/12/2018 Patient Education: Patient Medication Summary Completed 04/12/2018 Patient Education: Cholesterol Management Completed 04/12/2018 Referral: Jayme Oliveira [place] Referral Appointment Requested Instructions Comment . Sinusitis [...] in the nasal steroid allergy spray. . Inflluenza A -dorothy ent's symptoms have [...]
--- OUTSIDE RECORDS SUMMARY | 2019-12-17 19:46 | XMS REPORT | CCD ---
Author Author Nancy Solis Organization Lorna Solis MD, [facility] Address [address] [place] [address] Phone Care Team Providers Care Roustabout Supervisor Name Role Phone PP Unavailable CCM Unavailable Summary Purpose Interface Exchange Insurance Providers Payer name Policy type / Coverage type Covered democrat ID Effective Begin Date Effective End Date Advantra PPO Medicare Part B [id number] 2018 Unknown Family history Father Diagnosis Age [...] farfan unemployed 04/12/[address]: 632685548 Never smoker 04/12/[address]: 220648532 Never drinks alcohol 04/12/2018 Allergies, Adverse Reactions, Alerts Substance Reaction Codes Entered Date Inactivated Date Status amoxicillin RxNorm: 723 04/12/2018 N o Inactive Date Active bactrim RxNorm: 040821 04/12/2018 No Inactive Date Active * NO KNOWN DRUG EKTA RGIES Unknown 04/12/2018 No Inactive Date Active ciprofloxacin RxNorm: 87596 11/28/2018 No Inactive Date Active Levaquin RxNorm: 75808 04/12/2018 No Inactive Date Active SULFA (SULFONAMIDE [...] Fill Instructions Keflex 500 mg capsule RxNorm: 894131 1 Capsule(s) PO TID 11/28/2018 12/04/2018 Active Zithromax Z-Isidro 250 mg tablet RxNorm: 741059 Tablet(s) PO UD 10/26/2018 No Stop Date Active Kenalog 40 mg/mL jarrod pension for injection RxNorm: 1511966 Milliliter(s) Inj 10/26/2018 10/26/2018 In active lisinopril 20 mg-hyd rochlorothiazide 12.5 mg tablet RxNorm: 033684 1 Tablet(s) PO BID 06/14/2018 06/08/2019 Ac tive fluorouracil 5 % top ical cream RxNorm: 516105 1 Application TOP BID 06/14/2018 06/23/2018 Inactive levothyroxine 175 mc g tablet RxNorm: 323390 1 Tablet(s) PO every other day wednesday/wednesday/sat/sun 04/12/2018 04/06/2019 Active montelukast 10 mg ta blet RxNorm: 968762 1 Tablet(s) PO daily 04/12/2018 04/06/2019 Active ibuprofen 600 mg tablet RxNorm: 643750 1 Tablet(s) PO TID 04/12/2018 04/06/2019 Active levothyroxine 150 mc g tablet RxNorm: 120019 1 Tablet(s) PO TIW 04/12/2018 04/06/2019 Active amlodipine 5 mg tablet RxNorm: 243871 1 Tablet(s) PO daily 04/12/2018 04/06/2019 Active allopurinol 300 mg t ablet RxNorm: 896929 1 Tablet(s) PO daily 04/12/2018 04/06/2019 Active ibuprofen 600 mg tablet RxNorm: 838359 1 Tablet(s) PO TID 04/12/2018 04/11/2018 Inactive lisinopril 20 mg-hyd rochlorothiazide 12.5 mg tablet RxNorm: 907513 1 Tablet(s) PO daily 04/12/2018 04/11/2018 Inactive lisinopril 20 mg-hyd rochlorothiazide 12.5 mg tablet RxNorm: 491077 1 Tablet(s) PO daily 04/12/2018 06/13/2018 Inactive amlodipine 5 mg tablet RxNorm: 333400 1 Tablet(s) PO daily 04/12/2018 04/11/2018 Inactive allopurinol 300 mg t ablet RxNorm: 196800 1 Tablet(s) PO daily 04/12/2018 04/11/2018 Inactive garlic 1,000 mg capsule RxNorm: 798681 1 Capsule(s) PO daily No Start Date Active Hair,Skin,Nails with Biotin 7.5 mg-7.5 unit-1,250 mcg chewable tablet RxNorm: 1 Tablet(s) PO daily No Start Date Active Baby Aspirin 81 mg c hewable tablet RxNorm: 177634 3 Tablet(s) PO daily No Start Date Active levothyroxine 150 mc g tablet RxNorm: 561176 wed and Wed sun Tablet(s) PO No Start Date 04/11/2018 Inactive montelukast 10 mg ta blet RxNorm: 669720 1 Tablet(s) PO daily No Start Date 04/11/2018 Inactive Fish Oil 1,000 mg ca psule RxNorm: 4 Capsule(s) PO daily No Start Date 04/11/2018 Inactive Medication Administered Medication Codes Instruc tions Start Date Status Kenalog 40 mg/mL suspension for injection RxNorm: 8756491 Milliliter 10/26/2018 No longer Active Immunizations Vaccine [...] Item Item Code Result Date Free T4 Kch389 FREE T4 1.13 ng/dL 04/12/2018 Comp Metabolic Krn320 NA 141 mEq/L 04/12/2018 Comp Metabolic Vhj117 K 4.4 mEq/L 04/12/2018 Comp Metabolic Bxf062 CL 103 mEq/L 04/12/2018 Comp Metabolic Szk273 CO2 31.0 mEq/L 04/12/2018 Comp Metabolic Exu642 AN ION GAP 11 04/12/2018 Comp Metabolic Zau877 GL UCOSE 98 mg/dL 04/12/2018 Comp Metabolic Khd612 Cr eat 0.7 mg/dL 04/12/2018 Comp Metabolic She302 eG FR 84 ml/min/1.73m2 04/12 Comp Metabolic Ljt217 BUN 17 mg/dL 04/12/2018 Comp Metabolic Imk367 B/ C Ratio 23.0 Ratio 04/12/2018 Comp Metabolic Xcu803 CA LCIUM 10.0 mg/dL 04/12/2018 Comp Metabolic Gup637 AL K PHOS 70 U/L 04/12/2018 Comp Metabolic Dcl870 T(SGOT) 40 U/L 04/12/2018 Comp Metabolic Eiw653 AL T(SGPT) 48 U/L 04/12/2018 Comp Metabolic Nqt850 BI LI T 0.4 mg/dL 04/12/2018 Comp Metabolic Diz772 AL BUMIN 4.2 g/dL 04/12/2018 Comp Metabolic Uxn516 TP RO 6.9 g/dL 04/12/2018 Comp Metabolic Neb874 GL OB 2.7 g/dL 04/12/2018 Comp Metabolic Zlj947 A/ G Ratio 1.6 Ratio 04/12/2018 Comp Metabolic Xts548 Os mo 283 mOsmo 04/12/2018 Uric Acid [...] 29.4 pg 04/12/2018 Cbc With Differential Ord2 [place]% 12.3 % 04/12/2018 Cbc With Differential Ord2 [...] 2.02 K/ul 04/12/2018 Cbc With Differential Ord2 [place] ABS# 0.6 K/ul 04/12/2018 Cbc With Differential [...] Date URINALYSIS NONAUTO W /O SCOPE CPT-4: 78508 11/28/2018 THER/PROPH/DIAG INJ SC/IM CPT-4: 97659 10/26/2018 TRIAMCINOLONE ACET I [place] NOS CPT-4: J3301 10/26/2018 Vital Signs Date Vital 11/28/2018 Blood Pressure 1: 132/78 Code: 8480-6 BMI: 44.6 Code: 45845-0 Heart Rate 1: 85 bpm Height: 5'8" SpO2: 96% Weight: 293 lbs 10/26/2018 Blood Pressure 1: 154/88 Code: 8480-6 BMI: 44.6 Code: 40882-2 Heart Rate 1: 78 bpm Height: 5'8" SpO2: 96% Weight: 293 lbs 08/09/2018 Blood Pressure 1: 120/84 Code: 8480-6 Heart Rate 1: 71 bpm Height: SpO2: 96% Weight: 06/14/2018 Blood Pressure 1: 136/84 Code: 8480-6 BMI: 43.8 Code: 21666-3 Heart Rate 1: 73 bpm Height: 5'8" SpO2: 96% Weight: 288 lbs 04/12/2018 Blood Pressure 1: 138/86 Code: 8480-6 BMI: 43.0 Code: 58500-1 Heart Rate 1: 61 bpm Height: 5'8" [...] Encounters Encounter Performer Loca tion Codes Date ([id number]) [id number] EST. [facility] Diagnosis: Urinary tract infection, site not specified[ICD10: N39.0] Delmis Solis MD, [facility] CPT-4: 02344 11/28/2018 11180 EST. PATIENT, LEVEL III Diagnosis: Other acute sinusitis[ICD10: J01.80] Diagnosis: Other allergic rhinitis[ICD10: J30.89] Anna Solis MD, [facility] CPT-4: 59741 10/26/2018 [id number]) 18102 EST. P ATIENT, LEVEL III Diagnosis: Influenza due to identified novel influenza A virus with other manifestations[ICD10: J09.X9] Delmis Solis MD, [facility] CPT-4: 75002 08/09/2018 [id number]) 79565 EST. P ATIENT, LEVEL III Diagnosis: Essential (primary) hypertension[ICD10: I10] Diagnosis: Pain in right finger(s)[ICD10: M79.644] Diagnosis: Pain in left finger(s)[ICD10: M79.645] [facility] CPT-4: 92565 06/14/2018 ([id number]) OFFICE 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 Antibiotic electronically prescribed to pt's pharmacy of choice. Pt to call if symptoms do not improve. 11/28/2018 Patient Education: Patient Medication Summary Completed 11/28/2018 Care Plan: Urine Culture Pending 11/28/2018 Visit Plan: Sinusitis - Pt has [...] allergy spray. 10/26/2018 Appointment: Anna Horne WPtel: [address] [place], [place] [phone] (30 min) [facility] 10/26/2018 Patient Education: Patient Medication Summary Completed 10/26/2018 Visit Plan: Inflluenza A -patient's symptoms have resolved and she is feeling better -instructed her to call with any concerns or return of symptoms such as cough -patient verbalized understanding of plan. 08/09/2018 Appointment: Delmis Cheek WPtel: [facility]5 [phone] (30 min) Complex 08/09/2018 Patient Education: Patient Medication Summary Completed 08/09/2018 [facility] info fax[facility]. [...] pain/thumb pain. 06/14/2018 Appointment: Lorna Solis WPtel: [phone] [facility] (15 min) Moderate 06/14/2018 Patient Education: Patient Medication Summary Completed 06/14/2018 Care Plan: Referral Order SNOMED-CT : [id number] Pending 06/14/2018 Appointment: Lorna Solis WPtel: [facility]5 [facility]66[facility] New Patient 04/19/2018 Visit Plan: Hypertension - [...] today. 04/12/2018 Appointment: [facility]el[phone] [facility] [place] New Patient 04/12/2018 Patient Education: Patient [...]
--- OUTSIDE RECORDS SUMMARY | 2019-12-17 19:46 | XMS REPORT | CCD ---
Author Author Nancy Solis Organization Lorna Solis MD, [facility] Address [address] [place] [address] Phone Care Team Providers Care Machine Deicer Element Winder Name Role Phone PP Unavailable CCM Unavailable Summary Purpose Interface Exchange Insurance Providers Payer name Policy type / Coverage type Covered libertarian ID Effective Begin Date Effective End Date Ad[employer]ra PPO Medicare Part B [id number] 2018 Unknown Family history Father Diagnosis Age [...] farfan unemployed 04/12/[address]: 317393475 Never smoker 04/12/[address]: 952183994 Never drinks alcohol 04/12/2018 Allergies, Adverse Reactions, Alerts Substance Reaction Codes Entered Date Inactivated Date Status amoxicillin RxNorm: 723 04/12/2018 N o Inactive Date Active bactrim RxNorm: 134643 04/12/2018 No Inactive Date Active * NO KNOWN DRUG EKTA RGIES Unknown 04/12/2018 No Inactive Date Active ciprofloxacin RxNorm: 69707 11/28/2018 No Inactive Date Active Levaquin RxNorm: 37716 04/12/2018 No Inactive Date Active SULFA (SULFONAMIDE A NTIBIOTICS) Unknown 04/12/2018 No Inactive Date Active Past Medical History Illness Codes Condition Status Onset Date Resolved Date Atrophy of thyroid ( acquired) ICD-9: 244.8 ICD-10: E03.4 Active 04/12/2018 Unknown Essential (primary) hypertension ICD-9: 401.1 ICD-10: I10 Active 04/12/2018 Unknown Mixed hyperlipidemia ICD-9: 272.2 ICD-10: E78.2 Active 04/12/2018 Unknown Tinnitus, left ear ICD- 9: 388.31 ICD-10: H93.12 Active 02/07/2019 Unknown Urinary tract infect ion, site not [...] Condition Codes Effectiv e Dates Condition Status Atrophy of thyroid ( acquired) ICD-9: 244.8 ICD-10: E03.4 04/12/2018 Active Essential (primary) hypertension ICD-9: 401.1 ICD-10: I10 04/12/2018 Active Mixed hyperlipidemia ICD-9: 272.2 ICD-10: E78.2 04/12/2018 Active Tinnitus, left ear ICD- 9: 388.31 ICD-10: H93.12 02/07/2019 Active Urinary tract infect ion, site not [...] Fill Instructions Crestor 10 mg tablet RxNorm: 298313 1 Tablet(s) PO daily 02/14/2019 03/15/2019 Active pt would like to get just 5 tabs to try and see if she can tolerat the medication Crestor 10 mg tablet RxNorm: 464306 1 Tablet(s) PO daily 02/14/2019 02/13/2019 Inactive pt would like to get just 5 tabs to try and see if she can tolerat the medication Lipitor 20 mg tablet RxNorm: 963285 1 Tablet(s) PO daily 02/10/2019 02/09/2019 Inactive Lipitor 20 mg tablet RxNorm: 164727 1 Tablet(s) PO daily 02/10/2019 02/13/2019 Inactive levothyroxine 150 mc g tablet RxNorm: 053500 TAKE 1 TABLET BY MOMILTON Baez THREE TIMES WEEKLY 01/17/2019 No Stop Date Active Keflex 500 mg capsule RxNorm: 697251 1 Capsule(s) PO TID 11/28/2018 12/04/2018 Inactive Zithromax Z-Isidro 250 mg tablet RxNorm: 622794 Tablet(s) PO UD 10/26/2018 02/06/2019 Inactive Kenalog 40 mg/mL jarrod pension for injection RxNorm: 5447889 Milliliter(s) Inj 10/26/2018 10/26/2018 In active lisinopril 20 mg-hyd rochlorothiazide 12.5 mg tablet RxNorm: 179602 1 Tablet(s) PO BID 06/14/2018 06/08/2019 Ac tive fluorouracil 5 % top ical cream RxNorm: 522279 1 Application TOP BID 06/14/2018 06/23/2018 Inactive levothyroxine 175 mc g tablet RxNorm: 163255 1 Tablet(s) PO every other day wednesday/wednesday/sat/sun 04/12/2018 04/06/2019 Active montelukast 10 mg ta blet RxNorm: 563917 1 Tablet(s) PO daily 04/12/2018 04/06/2019 Active ibuprofen 600 mg tablet RxNorm: 213933 1 Tablet(s) PO TID 04/12/2018 04/06/2019 Active allopurinol 300 mg t ablet RxNorm: 013939 1 Tablet(s) PO daily 04/12/2018 04/06/2019 Active ibuprofen 600 mg tablet RxNorm: 961680 1 Tablet(s) PO TID 04/12/2018 04/11/2018 Inactive lisinopril 20 mg-hyd rochlorothiazide 12.5 mg tablet RxNorm: 017303 1 Tablet(s) PO daily 04/12/2018 04/11/2018 Inactive lisinopril 20 mg-hyd rochlorothiazide 12.5 mg tablet RxNorm: 475642 1 Tablet(s) PO daily 04/12/2018 06/13/2018 Inactive amlodipine 5 mg tablet RxNorm: 952062 1 Tablet(s) PO daily 04/12/2018 04/11/2018 Inactive allopurinol 300 mg t ablet RxNorm: 232466 1 Tablet(s) PO daily 04/12/2018 04/11/2018 Inactive levothyroxine 150 mc g tablet RxNorm: 555014 1 Tablet(s) PO TIW 04/12/2018 01/16/2019 Inactive amlodipine 5 mg tablet RxNorm: 054895 1 Tablet(s) PO daily 04/12/2018 02/06/2019 Inactive garlic 1,000 mg capsule RxNorm: 184577 1 Capsule(s) PO daily No Start Date Active Hair,Skin,Nails with Biotin 7.5 mg-7.5 unit-1,250 mcg chewable tablet RxNorm: 1 Tablet(s) PO daily No Start Date Active Baby Aspirin 81 mg c hewable tablet RxNorm: 560989 3 Tablet(s) PO daily No Start Date Active levothyroxine 150 mc g tablet RxNorm: 241602 wed th and Wed sun Tablet(s) PO No Start Date 04/11/2018 Inactive montelukast 10 mg ta blet RxNorm: 818734 1 Tablet(s) PO daily No Start Date 04/11/2018 Inactive Fish Oil 1,000 mg ca psule RxNorm: 4 Capsule(s) PO daily No Start Date 04/11/2018 Inactive Medication Administered Medication Codes Instruc tions Start Date Status Kenalog 40 mg/mL suspension for injection RxNorm: 1386916 Milliliter 10/26/2018 No longer Active Immunizations Vaccine Codes Date Status Tetanus, Diptheria, Pertussis CVX: 113 05/19/2017 completed Tetanus/Diptheria CVX: 113 05/19/2017 completed Assessments Condition Codes Effectiv e Dates Tinnitus, left ear ICD-10: H93.12 ICD-9: 388.31 02/07/2019 Atrophy of thyroid (acquired) ICD-10 : E03.4 ICD-9: 244.8 02/07/2019 Mixed hyperlipidemia ICD-10: E78.2 ICD-9: 272.2 02/07/2019 Essential (primary) hypertension ICD -10: I10 ICD-9: 401.1 02/07/2019 Urinary tract infection, site not specified ICD-10: [...] Reason For Visit Effective Dates Notes hypertension 02/07/2019 dysuria 11/28/2018 sinus congestion 10/26/2018 cough 08/09/2018 hypertension 06/14/2018 urinary urgency 04/12/2018 Results Observation Observation Code Item Item Code Result Date Urine Culture Ucult Comp lete >100,000 col/ml aerobic grow th sent to ref lab 11/29/2018 Free T4 Bry431 FREE T4 1.13 ng/dL 04/12/2018 Comp Metabolic Jzn454 NA 141 mEq/L 04/12/2018 Comp Metabolic Htq767 K 4.4 mEq/L 04/12/2018 Comp Metabolic Seq158 CL 103 mEq/L 04/12/2018 Comp Metabolic Byd477 CO2 31.0 mEq/L 04/12/2018 Comp Metabolic Cxf852 AN ION GAP 11 04/12/2018 Comp Metabolic Hvp629 GL UCOSE 98 mg/dL 04/12/2018 Comp Metabolic Oca270 Cr eat 0.7 mg/dL 04/12/2018 Comp Metabolic Osc345 eG FR 84 ml/min/1.73m2 04/12 Comp Metabolic Abc284 BUN 17 mg/dL 04/12/2018 Comp Metabolic Qry204 B/ C Ratio 23.0 Ratio 04/12/2018 Comp Metabolic Xom276 CA LCIUM 10.0 mg/dL 04/12/2018 Comp Metabolic Iet994 AL K PHOS 70 U/L 04/12/2018 Comp Metabolic Chf377 T(SGOT) 40 U/L 04/12/2018 Comp Metabolic Wmw059 AL T(SGPT) 48 U/L 04/12/2018 Comp Metabolic Vjd684 BI LI T 0.4 mg/dL 04/12/2018 Comp Metabolic Fgp538 AL BUMIN 4.2 g/dL 04/12/2018 Comp Metabolic Glt965 TP RO 6.9 g/dL 04/12/2018 Comp Metabolic Ucv199 GL OB 2.7 g/dL 04/12/2018 Comp Metabolic Rfj028 A/ G Ratio 1.6 Ratio 04/12/2018 Comp Metabolic Qsw661 Os mo 283 mOsmo 04/12/2018 Uric Acid [...] 29.4 pg 04/12/2018 Cbc With Differential Ord2 [place]% 12.3 % 04/12/2018 Cbc With Differential Ord2 [...] 2.02 K/ul 04/12/2018 Cbc With Differential Ord2 [place] ABS# 0.6 K/ul 04/12/2018 Cbc With Differential [...] Result Effective Dates Constitutional No recent illness 02/07/2019 Constitutional No [...] lips 02/07/2019 None Full Exam - General 1994 Ears/Nose/Throat lips/teeth/gingiva Overall: normal dentition 02/07/2019 None [...] Date URINALYSIS NONAUTO W /O SCOPE CPT-4: 10936 11/28/2018 THER/PROPH/DIAG INJ SC/IM CPT-4: 79083 10/26/2018 TRIAMCINOLONE ACET I [place] NOS CPT-4: J3301 10/26/2018 Vital Signs Date Vital 02/07/2019 Blood Pressure 1: 140/82 Code: 8480-6 BMI: 44.1 Code: 89792-6 Heart Rate 1: 70 bpm Height: 5'8" SpO2: 95% Weight: 290 lbs 11/28/2018 Blood Pressure 1: 132/78 Code: 8480-6 BMI: 44.6 Code: 12245-8 Heart Rate 1: 85 bpm Height: 5'8" SpO2: 96% Weight: 293 lbs 10/26/2018 Blood Pressure 1: 154/88 Code: 8480-6 BMI: 44.6 Code: 89214-3 Heart Rate 1: 78 bpm Height: 5'8" SpO2: 96% Weight: 293 lbs 08/09/2018 Blood Pressure 1: 120/84 Code: 8480-6 Heart Rate 1: 71 bpm Height: SpO2: 96% Weight: 06/14/2018 Blood Pressure 1: 136/84 Code: 8480-6 BMI: 43.8 Code: 04883-0 Heart Rate 1: 73 bpm Height: 5'8" SpO2: 96% Weight: 288 lbs 04/12/2018 Blood Pressure 1: 138/86 Code: 8480-6 BMI: 43.0 Code: 64238-7 Heart Rate 1: 61 bpm Height: 5'8" SpO2: 97% Weight: 283 lbs Functional Status No Functional Status data History of Present Illness Symptom Name Status Resu lt Effective Date Notes Onset and Resolution o ngoing 02/07/2019 None [...] Encounters Encounter Performer Loca tion Codes Date ([id number]) 24087 EST. P ATIENT, LEVEL IV Diagnosis: Atrophy of thyroid (acquired)[ICD10: E03.4] Diagnosis: Essential (primary) hypertension[ICD10: I10] Diagnosis: Mixed hyperlipidemia[ICD10: E78.2] Diagnosis: Tinnitus, left ear[ICD10: H93.12] Lorna Solis MD, [facility] CPT-4: 54527 02/07/2019 ([id number]) 98960 EST. P ATIENT, LEVEL II Diagnosis: Urinary tract infection, site not specified[ICD10: N39.0] [facility] CPT-4: 50050 11/28/2018 89143 EST. PATIENT, LEVEL III Diagnosis: Other acute sinusitis[ICD10: J01.80] Diagnosis: Other allergic rhinitis[ICD10: J30.89] [facility] CPT-4: 22829 10/26/2018 ([id number]) 13120 EST. P ATIENT, LEVEL III Diagnosis: Influenza due to identified novel influenza A virus with other manifestations[ICD10: J09.X9] [facility] CPT-4: 62393 08/09/2018 ([id number]) 80049 EST. 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 Pt has been encouraged to exercise daily. The pt has been advised to call the office if there are any acute concerns about change in blood pressure readings at home. Family Hx of CAD - referral to Dr. Urbina in [place] for stress testing. Hearing loss - tinnitus [...] of control. 02/07/2019 [facility]ointment: [facility] [phone] [facility] [place] (15 min) Moderate 02/07/2019 Patient Education: Patient Medication Summary Completed 02/07/2019 Patient Education: Cholesterol Management Completed 02/07/2019 Care Plan: Comp Metabolic Pending 02/07/2019 Care Plan: Cbc With Differential Pending 02/07/2019 Care Plan: Tsh Pending 02/07/2019 Care Plan: Lipid Pending 02/07/2019 Care Plan: Free T4 Pending 02/07/2019 Care Plan: Referral Order SNOMED-CT : [id number] Pending 02/07/2019 Visit Plan: UTI - pt with positive urinalysis - culture sent if appropriate. Antibiotic electronically prescribed to pt's pharmacy of choice. Pt to call if symptoms do not improve. 11/28/2018 Appointment: [facility] [phone] [phone] [place] (10 min) Simple 11/28/2018 Patient Education: [...] allergy spray. 10/26/2018 Appointment: Anna Horne WPtel: [facility] [place] [facility] [place] [facility] (30 min) Complex 10/26/2018 Patient Education: Patient Medication Summary Completed 10/26/2018 Visit Plan: Inflluenza A -patient's symptoms have resolved and she is feeling better -instructed her to call with any concerns or return of symptoms such as cough -patient verbalized understanding of plan. 08/09/2018 Appointment: Delmis Cheek WPtel: [facility] [place] [facility] [place] [phone] (30 min) Complex 08/09/2018 Patient Education: Patient Medication Summary Completed 08/09/2018 Referral: Jayme Oliveira [facility] Patient informed. Referral info faxed. [...] pain/thumb pain. 06/14/2018 Appointment: Lorna Solis WPtel: [facility] [place] [facility] [place] [facility] (15 min) Moderate 06/14/2018 Patient Education: Patient Medication Summary Completed 06/14/2018 Care Plan: Referral Order SNOMED-CT : [id number] Pending 06/14/2018 Appointment: Lorna Solis WPtel: [phone] [facility] New Patient 04/19/2018 Visit Plan: Hypertension [...] today. 04/12/2018 Appointment: [facility]el[facility] [phone] [facility] [facility] Patient 04/12/2018 Patient Education: Patient Medication Summary Completed 04/12/2018 Patient Education: Cholesterol Management Completed 04/12/2018 Referral: [facility] Referral Appointment Requested Referral: Jayme Oliveira [facility] Referral Appointment Requested Instructions Comment [...] CAD - referral to Dr. Urbina in [place] for stress testing. Hearing loss - tinnitus [...] months based on previous levels of control. . Inflluenza A -dorothy ent's symptoms have [...]
--- OUTSIDE RECORDS SUMMARY | 2019-12-17 19:47 | XMS REPORT | CCD ---
Author Author Nancy Solis Organization Lorna Solis MD, [facility] Address [address] [place] [address] Phone Care Team Providers Care Tobacco Blender Name Role Phone PP Unavailable CCM Unavailable Summary Purpose Interface Exchange Insurance Providers Payer name Policy type / Coverage type Covered green party ID Effective Begin Date Effective End Date Advantra PPO Medicare Part B [id number] 2018 Unknown Family history Father Diagnosis Age At Onset kidney disease Unknown Diabetes mellitus Type 2 Unknown Hypertension Unknown Mother Diagnosis Age At Onset Coronary Artery Disease Unknown Cancer Unknown Stroke Unknown Diabetes mellitus Type 2 Unknown Social History Social History Element Codes Description Effective Dates Marital status Unknown Leif Short 04/12/2018 Number of children Unknown 4 04/12/2018 Employment Unknown Luis Felipe ntly unemployed 04/12/[address]: 616851496 Never smoker 04/12/[address]: 440151806 Never drinks alcohol 04/12/2018 Allergies, Adverse Reactions, Alerts Substance Reaction Codes Entered Date Inactivated Date Status amoxicillin RxNorm: 723 04/12/2018 N o Inactive Date Active bactrim RxNorm: 150082 04/12/2018 No Inactive Date Active * NO KNOWN DRUG EKTA RGIES Unknown 04/12/2018 No Inactive Date Active ciprofloxacin RxNorm: 73156 04/12/2018 No Inactive Date Active Levaquin RxNorm: 42574 04/12/2018 No Inactive Date Active SULFA (SULFONAMIDE A NTIBIOTICS) Unknown 04/12/2018 No Inactive Date Active Past Medical History Illness Codes Condition Status Onset Date Resolved Date Other acute sinusitis ICD-9: 461.8 ICD-10: J01.80 [...] Condition Codes Effectiv e Dates Condition Status Other acute sinusitis ICD-9: 461.8 ICD-10: J01.80 [...] Date Stop Date Sta tus Fill Instructions Zithromax Z-Isidro 250 mg tablet RxNorm: 522486 Tablet(s) PO UD 10/26/2018 No Stop Date Active Kenalog 40 mg/mL jarrod pension for injection RxNorm: 9290339 Milliliter(s) Inj 10/26/2018 10/26/2018 In active lisinopril 20 mg-hyd rochlorothiazide 12.5 mg tablet RxNorm: 949080 1 Tablet(s) PO BID 06/14/2018 06/08/2019 Ac tive fluorouracil 5 % top ical cream RxNorm: 128772 1 Application TOP BID 06/14/2018 06/23/2018 Inactive levothyroxine 175 mc g tablet RxNorm: 052866 1 Tablet(s) PO every other day wednesday/wednesday/sat/sun 04/12/2018 04/06/2019 Active montelukast 10 mg ta blet RxNorm: 538363 1 Tablet(s) PO daily 04/12/2018 04/06/2019 Active ibuprofen 600 mg tablet RxNorm: 457165 1 Tablet(s) PO TID 04/12/2018 04/06/2019 Active levothyroxine 150 mc g tablet RxNorm: 349778 1 Tablet(s) PO TIW 04/12/2018 04/06/2019 Active amlodipine 5 mg tablet RxNorm: 426853 1 Tablet(s) PO daily 04/12/2018 04/06/2019 Active allopurinol 300 mg t ablet RxNorm: 649274 1 Tablet(s) PO daily 04/12/2018 04/06/2019 Active ibuprofen 600 mg tablet RxNorm: 188674 1 Tablet(s) PO TID 04/12/2018 04/11/2018 Inactive lisinopril 20 mg-hyd rochlorothiazide 12.5 mg tablet RxNorm: 083885 1 Tablet(s) PO daily 04/12/2018 04/11/2018 Inactive lisinopril 20 mg-hyd rochlorothiazide 12.5 mg tablet RxNorm: 729086 1 Tablet(s) PO daily 04/12/2018 06/13/2018 Inactive amlodipine 5 mg tablet RxNorm: 978585 1 Tablet(s) PO daily 04/12/2018 04/11/2018 Inactive allopurinol 300 mg t ablet RxNorm: 574241 1 Tablet(s) PO daily 04/12/2018 04/11/2018 Inactive garlic 1,000 mg capsule RxNorm: 770610 1 Capsule(s) PO daily No Start Date Active Hair,Skin,Nails with Biotin 7.5 mg-7.5 unit-1,250 mcg chewable tablet RxNorm: 1 Tablet(s) PO daily No Start Date Active Baby Aspirin 81 mg c hewable tablet RxNorm: 315036 3 Tablet(s) PO daily No Start Date Active levothyroxine 150 mc g tablet RxNorm: 080131 wed thur and 175 fri sat sun Tablet(s) PO No Start Date 04/11/2018 Inactive montelukast 10 mg ta blet RxNorm: 196816 1 Tablet(s) PO daily No Start Date 04/11/2018 Inactive Fish Oil 1,000 mg ca psule RxNorm: 4 Capsule(s) PO daily No Start Date 04/11/2018 Inactive Medication Administered Medication Codes Instruc tions Start Date Status Kenalog 40 mg/mL suspension for injection RxNorm: 8749921 Milliliter 10/26/2018 No longer Active Immunizations Vaccine Codes Date Status Tetanus, Diptheria, Pertussis CVX: 113 05/19/2017 completed Tetanus/Diptheria CVX: 113 05/19/2017 completed Assessments Condition Codes Effectiv e Dates Other allergic rhinitis ICD-10: J30. 89 ICD-9: [...] Visit Reason For Visit Effective Dates Notes sinus congestion 10/26/2018 cough 08/09/2018 hypertension 06/14/2018 urinary urgency 04/12/2018 Results Observation Observation Code Item Item Code Result Date Free T4 Bbl350 FREE T4 1.13 ng/dL 04/12/2018 Comp Metabolic Byf773 NA 141 mEq/L 04/12/2018 Comp Metabolic Myj892 K 4.4 mEq/L 04/12/2018 Comp Metabolic Thj413 CL 103 mEq/L 04/12/2018 Comp Metabolic Ntd751 CO2 31.0 mEq/L 04/12/2018 Comp Metabolic Jtr256 AN ION GAP 11 04/12/2018 Comp Metabolic Zik449 GL UCOSE 98 mg/dL 04/12/2018 Comp Metabolic Lrg848 Cr eat 0.7 mg/dL 04/12/2018 Comp Metabolic Ftb046 eG FR 84 ml/min/1.73m2 04/12 Comp Metabolic Pyn174 BUN 17 mg/dL 04/12/2018 Comp Metabolic Dnb405 B/ C Ratio 23.0 Ratio 04/12/2018 Comp Metabolic Yvy542 CA LCIUM 10.0 mg/dL 04/12/2018 Comp Metabolic Blm031 AL K PHOS 70 U/L 04/12/2018 Comp Metabolic Snz358 T(SGOT) 40 U/L 04/12/2018 Comp Metabolic Xyg589 AL T(SGPT) 48 U/L 04/12/2018 Comp Metabolic Ese453 BI LI T 0.4 mg/dL 04/12/2018 Comp Metabolic Kgf444 AL BUMIN 4.2 g/dL 04/12/2018 Comp Metabolic Ouk163 TP RO 6.9 g/dL 04/12/2018 Comp Metabolic Pdz353 GL OB 2.7 g/dL 04/12/2018 Comp Metabolic Ice155 A/ G Ratio 1.6 Ratio 04/12/2018 Comp Metabolic Hmf942 Os mo 283 mOsmo 04/12/2018 Uric Acid [...] 29.4 pg 04/12/2018 Cbc With Differential Ord2 [place]% 12.3 % 04/12/2018 Cbc With Differential Ord2 [...] 2.02 K/ul 04/12/2018 Cbc With Differential Ord2 [place] ABS# 0.6 K/ul 04/12/2018 Cbc With Differential [...] of Systems System Result Effective Dates Constitutional recent illness 10/26/2018 Constitutional No chills [...] Result Effective Dates Notes Full Exam - ENT Constitutional general appearance [...] swelling 04/12/2018 None Procedures Procedure Codes Date THER/PROPH/DIAG INJ SC/IM CPT-4: 10341 10/26/2018 TRIAMCINOLONE ACET I [place] NOS CPT-4: J3301 10/26/2018 Vital Signs Date Vital 10/26/2018 Blood Pressure 1: 154/88 Code: 8480-6 BMI: 44.6 Code: 59801-6 Heart Rate 1: 78 bpm Height: 5'8" SpO2: 96% Weight: 293 lbs 08/09/2018 Blood Pressure 1: 120/84 Code: 8480-6 Heart Rate 1: 71 bpm Height: SpO2: 96% Weight: 06/14/2018 Blood Pressure 1: 136/84 Code: 8480-6 BMI: 43.8 Code: 67462-1 Heart Rate 1: 73 bpm Height: 5'8" SpO2: 96% Weight: 288 lbs 04/12/2018 Blood Pressure 1: 138/86 Code: 8480-6 BMI: 43.0 Code: 12745-7 Heart Rate 1: 61 bpm Height: 5'8" SpO2: 97% Weight: 283 lbs Functional Status No Functional Status data History of Present Illness Symptom Name Status Resu lt Effective Date Notes Location frontal sinuses 10/26/2018 None Quality constant [...] Encounters Encounter Performer Loca tion Codes Date 88507 EST. PATIENT, LEVEL III Diagnosis: Other acute sinusitis[ICD10: J01.80] Diagnosis: Other allergic rhinitis[ICD10: J30.89] [facility] CPT-4: 21919 10/26/2018 ([id number]) 41761 EST. P ATIENT, LEVEL III Diagnosis: Influenza due to identified novel influenza A virus with other manifestations[ICD10: J09.X9] [facility] CPT-4: 62328 08/09/2018 ([id number]) 48303 EST. 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 10/26/2018 Appointment: Anna Horne WPtel: [address] [place], [place] [address] (30 min) Complex 10/26/2018 Patient Education: Patient Medication Summary Completed 10/26/2018 Visit Plan: Inflluenza A -patient's symptoms have resolved and she is feeling better -instructed her to call with any concerns or return of symptoms such as cough -patient verbalized understanding of plan. 08/09/2018 Appointment: Delmis Cheek WPtel: [address] [place], [place] [phone] (30 min) Complex 08/09/2018 Patient Education: Patient Medication Summary Completed 08/09/2018 Referral: Jayme Oliveira [facility] Patient informed. Referral info faxed. [...] pain/thumb pain. 06/14/2018 Appointment: Lorna Solis WPtel: [address] [place], [place] [address] (15 min) Moderate 06/14/2018 Patient Education: Patient Medication Summary Completed 06/14/2018 Care Plan: Referral Order SNOMED-CT : [id number] Pending 06/14/2018 Appointment: Lorna Solis WPtel: [address] [place] [address] New Patient 04/19/2018 Visit Plan: Hypertension - [...] patient today. 04/12/2018 Appointment: Lorna Solis WPtel: [address] [place], [place] [address] New Patient 04/12/2018 Patient Education: Patient Medication Summary Completed 04/12/2018 Patient Education: Cholesterol Management Completed 04/12/2018 [facility] Requested Instructions Comment . Sinusitis [...] as cough -patient verbalized understanding of plan. stop fish oil decrease fat and pork [...]
--- OUTSIDE RECORDS SUMMARY | 2019-12-17 19:47 | XMS REPORT | CCD ---
Author Author Nancy Solis Organization Lorna Solis MD, [facility] Address [address] [place] [address] Phone Care Team Providers Care Client Delivery Specialist Name Role Phone PP Unavailable CCM Unavailable Summary Purpose Interface Exchange Insurance Providers Payer name Policy type / Coverage type Covered alliance party ID Effective Begin Date Effective End Date [employer] PPO Medicare Part B [id number] 2018 Unknown Family history Father Diagnosis Age [...] farfan unemployed 04/12/[address]: 339705996 Never smoker 04/12/[address]: 053042115 Never drinks alcohol 04/12/2018 Allergies, Adverse Reactions, Alerts Substance Reaction Codes Entered Date Inactivated Date Status amoxicillin RxNorm: 723 04/12/2018 N o Inactive Date Active bactrim RxNorm: 673233 04/12/2018 No Inactive Date Active * NO KNOWN DRUG EKTA RGIES Unknown 04/12/2018 No Inactive Date Active ciprofloxacin RxNorm: 42917 11/28/2018 No Inactive Date Active Levaquin RxNorm: 82572 04/12/2018 No Inactive Date Active SULFA (SULFONAMIDE [...] Fill Instructions Keflex 500 mg capsule RxNorm: 699235 1 Capsule(s) PO TID 11/28/2018 12/04/2018 Active Zithromax Z-Isidro 250 mg tablet RxNorm: 533693 Tablet(s) PO UD 10/26/2018 No Stop Date Active Kenalog 40 mg/mL jarrod pension for injection RxNorm: 0600265 Milliliter(s) Inj 10/26/2018 10/26/2018 In active lisinopril 20 mg-hyd rochlorothiazide 12.5 mg tablet RxNorm: 364090 1 Tablet(s) PO BID 06/14/2018 06/08/2019 Ac tive fluorouracil 5 % top ical cream RxNorm: 517768 1 Application TOP BID 06/14/2018 06/23/2018 Inactive levothyroxine 175 mc g tablet RxNorm: 355317 1 Tablet(s) PO every other day wednesday/wednesday/sat/sun 04/12/2018 04/06/2019 Active montelukast 10 mg ta blet RxNorm: 203747 1 Tablet(s) PO daily 04/12/2018 04/06/2019 Active ibuprofen 600 mg tablet RxNorm: 269619 1 Tablet(s) PO TID 04/12/2018 04/06/2019 Active levothyroxine 150 mc g tablet RxNorm: 023103 1 Tablet(s) PO TIW 04/12/2018 04/06/2019 Active amlodipine 5 mg tablet RxNorm: 774095 1 Tablet(s) PO daily 04/12/2018 04/06/2019 Active allopurinol 300 mg t ablet RxNorm: 219180 1 Tablet(s) PO daily 04/12/2018 04/06/2019 Active ibuprofen 600 mg tablet RxNorm: 548691 1 Tablet(s) PO TID 04/12/2018 04/11/2018 Inactive lisinopril 20 mg-hyd rochlorothiazide 12.5 mg tablet RxNorm: 974692 1 Tablet(s) PO daily 04/12/2018 04/11/2018 Inactive lisinopril 20 mg-hyd rochlorothiazide 12.5 mg tablet RxNorm: 210262 1 Tablet(s) PO daily 04/12/2018 06/13/2018 Inactive amlodipine 5 mg tablet RxNorm: 104868 1 Tablet(s) PO daily 04/12/2018 04/11/2018 Inactive allopurinol 300 mg t ablet RxNorm: 918424 1 Tablet(s) PO daily 04/12/2018 04/11/2018 Inactive garlic 1,000 mg capsule RxNorm: 155914 1 Capsule(s) PO daily No Start Date Active Hair,Skin,Nails with Biotin 7.5 mg-7.5 unit-1,250 mcg chewable tablet RxNorm: 1 Tablet(s) PO daily No Start Date Active Baby Aspirin 81 mg c hewable tablet RxNorm: 223279 3 Tablet(s) PO daily No Start Date Active levothyroxine 150 mc g tablet RxNorm: 735389 wed and Wed sun Tablet(s) PO No Start Date 04/11/2018 Inactive montelukast 10 mg ta blet RxNorm: 641817 1 Tablet(s) PO daily No Start Date 04/11/2018 Inactive Fish Oil 1,000 mg ca psule RxNorm: 4 Capsule(s) PO daily No Start Date 04/11/2018 Inactive Medication Administered Medication Codes Instruc tions Start Date Status Kenalog 40 mg/mL suspension for injection RxNorm: 2804917 Milliliter 10/26/2018 No longer Active Immunizations Vaccine [...] Item Item Code Result Date Free T4 Zls697 FREE T4 1.13 ng/dL 04/12/2018 Comp Metabolic Eeq927 NA 141 mEq/L 04/12/2018 Comp Metabolic Jew234 K 4.4 mEq/L 04/12/2018 Comp Metabolic Fsh582 CL 103 mEq/L 04/12/2018 Comp Metabolic Dos730 CO2 31.0 mEq/L 04/12/2018 Comp Metabolic Doq096 AN ION GAP 11 04/12/2018 Comp Metabolic Haa396 GL UCOSE 98 mg/dL 04/12/2018 Comp Metabolic Ksc361 Cr eat 0.7 mg/dL 04/12/2018 Comp Metabolic Jfc693 eG FR 84 ml/min/1.73m2 04/12 Comp Metabolic Sej701 BUN 17 mg/dL 04/12/2018 Comp Metabolic Bcj785 B/ C Ratio 23.0 Ratio 04/12/2018 Comp Metabolic Bno579 CA LCIUM 10.0 mg/dL 04/12/2018 Comp Metabolic Jjq694 AL K PHOS 70 U/L 04/12/2018 Comp Metabolic Mws115 T(SGOT) 40 U/L 04/12/2018 Comp Metabolic Txy264 AL T(SGPT) 48 U/L 04/12/2018 Comp Metabolic Oor828 BI LI T 0.4 mg/dL 04/12/2018 Comp Metabolic Htg158 AL BUMIN 4.2 g/dL 04/12/2018 Comp Metabolic Tgs666 TP RO 6.9 g/dL 04/12/2018 Comp Metabolic Wym304 GL OB 2.7 g/dL 04/12/2018 Comp Metabolic Boy718 A/ G Ratio 1.6 Ratio 04/12/2018 Comp Metabolic Dsl894 Os mo 283 mOsmo 04/12/2018 Uric Acid [...] 29.4 pg 04/12/2018 Cbc With Differential Ord2 [place]% 12.3 % 04/12/2018 Cbc With Differential Ord2 [...] 2.02 K/ul 04/12/2018 Cbc With Differential Ord2 [place] ABS# 0.6 K/ul 04/12/2018 Cbc With Differential [...] Date URINALYSIS NONAUTO W /O SCOPE CPT-4: 37004 11/28/2018 THER/PROPH/DIAG INJ SC/IM CPT-4: 21655 10/26/2018 TRIAMCINOLONE ACET I [place] NOS CPT-4: J3301 10/26/2018 Vital Signs Date Vital 11/28/2018 Blood Pressure 1: 132/78 Code: 8480-6 BMI: 44.6 Code: 46833-1 Heart Rate 1: 85 bpm Height: 5'8" SpO2: 96% Weight: 293 lbs 10/26/2018 Blood Pressure 1: 154/88 Code: 8480-6 BMI: 44.6 Code: 78623-9 Heart Rate 1: 78 bpm Height: 5'8" SpO2: 96% Weight: 293 lbs 08/09/2018 Blood Pressure 1: 120/84 Code: 8480-6 Heart Rate 1: 71 bpm Height: SpO2: 96% Weight: 06/14/2018 Blood Pressure 1: 136/84 Code: 8480-6 BMI: 43.8 Code: 51914-9 Heart Rate 1: 73 bpm Height: 5'8" SpO2: 96% Weight: 288 lbs 04/12/2018 Blood Pressure 1: 138/86 Code: 8480-6 BMI: 43.0 Code: 94928-0 Heart Rate 1: 61 bpm Height: 5'8" [...] Encounters Encounter Performer Loca tion Codes Date ([id number]) 99810 EST. [facility] Diagnosis: Urinary tract infection, site not specified[ICD10: N39.0] Delmis Solis MD, [facility] CPT-4: 46310 11/28/2018 92920 EST. PATIENT, LEVEL III Diagnosis: Other acute sinusitis[ICD10: J01.80] Diagnosis: Other allergic rhinitis[ICD10: J30.89] Anna Solis MD, [facility] CPT-4: 82907 10/26/2018 [id number]) 41777 EST. P ATIENT, LEVEL III Diagnosis: Influenza due to identified novel influenza A virus with other manifestations[ICD10: J09.X9] Delmis Solis MD, [facility] CPT-4: 37041 08/09/2018 [id number]) 96938 EST. 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 10/26/2018 Appointment: Anna Horne WPtel: [address] [place], [place] [id number] (30 min) [facility] 10/26/2018 Patient Education: Patient Medication Summary Completed 10/26/2018 Visit Plan: Inflluenza A -patient's symptoms have resolved and she is feeling better -instructed her to call with any concerns or return of symptoms such as cough -patient verbalized understanding of plan. 08/09/2018 Appointment: Delmis Cheek WPtel: [facility]5 [facility] (30 min) Complex 08/09/2018 Patient Education: Patient Medication Summary Completed 08/09/2018 [facility] Ref[facility] info faxed. Completed [...] pain/thumb pain. 06/14/2018 Appointment: Lorna Solis WPtel: [address] [facility] (15 min) Moderate 06/14/2018 Patient Education: Patient Medication Summary Completed 06/14/2018 Care Plan: Referral Order SNOMED-CT : [id number] Pending 06/14/2018 Appointment: Lorna Solis WPtel: [facility]5 [facility]66[facility] New Patient 04/19/2018 Visit [...] today. 04/12/2018 Appointment: L[facility] Solis [facility]Ptel[facility] [address] [facility] [place] New Patient 04/12/2018 Patient Education: [...]
--- OUTSIDE RECORDS SUMMARY | 2019-12-17 19:48 | XMS REPORT | CCD ---
Author Author Nancy Solis Organization Lorna Solis MD, [facility] Address [address] [place] [address] Phone Care Team Providers Care Major Account Manager Name Role Phone PP Unavailable CCM Unavailable Summary Purpose Interface Exchange Insurance Providers Payer name Policy type / Coverage type Covered constitution party ID Effective Begin Date Effective End Date Advantra PPO Medicare Part B [id number] 2018 Unknown Family history Father Diagnosis Age [...] ntly unemployed 04/12/[address]: 342849193 Never smoker 04/12/[address]: 993278157 Never drinks alcohol 04/12/2018 Allergies, Adverse Reactions, Alerts Substance Reaction Codes Entered Date Inactivated Date Status amoxicillin RxNorm: 723 04/12/2018 N o Inactive Date Active bactrim RxNorm: 271014 04/12/2018 No Inactive Date Active * NO KNOWN DRUG EKTA RGIES Unknown 04/12/2018 No Inactive Date Active ciprofloxacin RxNorm: 57351 04/12/2018 No Inactive Date Active Levaquin RxNorm: 61483 04/12/2018 No Inactive Date Active SULFA (SULFONAMIDE [...] Instructions Zithromax Z-Isidro 250 mg tablet RxNorm: 325027 Tablet(s) PO UD 10/26/2018 No Stop Date Active Kenalog 40 mg/mL jarrod pension for injection RxNorm: 6539789 Milliliter(s) Inj 10/26/2018 10/26/2018 In active lisinopril 20 mg-hyd rochlorothiazide 12.5 mg tablet RxNorm: 168666 1 Tablet(s) PO BID 06/14/2018 06/08/2019 Ac tive fluorouracil 5 % top ical cream RxNorm: 493904 1 Application TOP BID 06/14/2018 06/23/2018 Inactive levothyroxine 175 mc g tablet RxNorm: 625913 1 Tablet(s) PO every other day wednesday/wednesday/sat/sun 04/12/2018 04/06/2019 Active montelukast 10 mg ta blet RxNorm: 933819 1 Tablet(s) PO daily 04/12/2018 04/06/2019 Active ibuprofen 600 mg tablet RxNorm: 464434 1 Tablet(s) PO TID 04/12/2018 04/06/2019 Active levothyroxine 150 mc g tablet RxNorm: 288200 1 Tablet(s) PO TIW 04/12/2018 04/06/2019 Active amlodipine 5 mg tablet RxNorm: 634587 1 Tablet(s) PO daily 04/12/2018 04/06/2019 Active allopurinol 300 mg t ablet RxNorm: 753340 1 Tablet(s) PO daily 04/12/2018 04/06/2019 Active ibuprofen 600 mg tablet RxNorm: 996674 1 Tablet(s) PO TID 04/12/2018 04/11/2018 Inactive lisinopril 20 mg-hyd rochlorothiazide 12.5 mg tablet RxNorm: 400266 1 Tablet(s) PO daily 04/12/2018 04/11/2018 Inactive lisinopril 20 mg-hyd rochlorothiazide 12.5 mg tablet RxNorm: 487098 1 Tablet(s) PO daily 04/12/2018 06/13/2018 Inactive amlodipine 5 mg tablet RxNorm: 037633 1 Tablet(s) PO daily 04/12/2018 04/11/2018 Inactive allopurinol 300 mg t ablet RxNorm: 154791 1 Tablet(s) PO daily 04/12/2018 04/11/2018 Inactive garlic 1,000 mg capsule RxNorm: 817133 1 Capsule(s) PO daily No Start Date Active Hair,Skin,Nails with Biotin 7.5 mg-7.5 unit-1,250 mcg chewable tablet RxNorm: 1 Tablet(s) PO daily No Start Date Active Baby Aspirin 81 mg c hewable tablet RxNorm: 002427 3 Tablet(s) PO daily No Start Date Active levothyroxine 150 mc g tablet RxNorm: 960769 wed thur and 175 fri sat sun Tablet(s) PO No Start Date 04/11/2018 Inactive montelukast 10 mg ta blet RxNorm: 338473 1 Tablet(s) PO daily No Start Date 04/11/2018 Inactive Fish Oil 1,000 mg ca psule RxNorm: 4 Capsule(s) PO daily No Start Date 04/11/2018 Inactive Medication Administered Medication Codes Instruc tions Start Date Status Kenalog 40 mg/mL suspension for injection RxNorm: 5835640 Milliliter 10/26/2018 Ac tive Immunizations Vaccine Codes Date Status Tetanus, Diptheria, [...] Item Item Code Result Date Free T4 Lsp676 FREE T4 1.13 ng/dL 04/12/2018 Comp Metabolic Eqd973 NA 141 mEq/L 04/12/2018 Comp Metabolic Nag704 K 4.4 mEq/L 04/12/2018 Comp Metabolic Zbp757 CL 103 mEq/L 04/12/2018 Comp Metabolic Kat613 CO2 31.0 mEq/L 04/12/2018 Comp Metabolic Nwu012 AN ION GAP 11 04/12/2018 Comp Metabolic Tbi187 GL UCOSE 98 mg/dL 04/12/2018 Comp Metabolic Tyc373 Cr eat 0.7 mg/dL 04/12/2018 Comp Metabolic Ilf484 eG FR 84 ml/min/1.73m2 04/12 Comp Metabolic But429 BUN 17 mg/dL 04/12/2018 Comp Metabolic Icw924 B/ C Ratio 23.0 Ratio 04/12/2018 Comp Metabolic Zlv454 CA LCIUM 10.0 mg/dL 04/12/2018 Comp Metabolic Bjf353 AL K PHOS 70 U/L 04/12/2018 Comp Metabolic Uvl060 T(SGOT) 40 U/L 04/12/2018 Comp Metabolic Ord435 AL T(SGPT) 48 U/L 04/12/2018 Comp Metabolic Ptz735 BI LI T 0.4 mg/dL 04/12/2018 Comp Metabolic Gkr122 AL BUMIN 4.2 g/dL 04/12/2018 Comp Metabolic Out520 TP RO 6.9 g/dL 04/12/2018 Comp Metabolic Ulj364 GL OB 2.7 g/dL 04/12/2018 Comp Metabolic Hzg159 A/ G Ratio 1.6 Ratio 04/12/2018 Comp Metabolic Vfw808 Os mo 283 mOsmo 04/12/2018 Uric Acid [...] 29.4 pg 04/12/2018 Cbc With Differential Ord2 [place]% 12.3 % 04/12/2018 Cbc With Differential Ord2 [...] 2.02 K/ul 04/12/2018 Cbc With Differential Ord2 [place] ABS# 0.6 K/ul 04/12/2018 Cbc With Differential [...] Procedure Codes Date THER/PROPH/DIAG INJ SC/IM CPT-4: 44828 10/26/2018 TRIAMCINOLONE ACET I [place] NOS CPT-4: J3301 10/26/2018 Vital Signs Date Vital 10/26/2018 Blood Pressure 1: 154/88 Code: 8480-6 BMI: 44.6 Code: 46652-0 Heart Rate 1: 78 bpm Height: 5'8" SpO2: 96% Weight: 293 lbs 08/09/2018 Blood Pressure 1: 120/84 Code: 8480-6 Heart Rate 1: 71 bpm Height: SpO2: 96% Weight: 06/14/2018 Blood Pressure 1: 136/84 Code: 8480-6 BMI: 43.8 Code: 98753-5 Heart Rate 1: 73 bpm Height: 5'8" SpO2: 96% Weight: 288 lbs 04/12/2018 Blood Pressure 1: 138/86 Code: 8480-6 BMI: 43.0 Code: 16905-2 Heart Rate 1: 61 bpm Height: 5'8" [...] Encounters Encounter Performer Loca tion Codes Date 95582 EST. PATIENT, LEVEL III Diagnosis: Other acute sinusitis[ICD10: J01.80] Diagnosis: Other allergic rhinitis[ICD10: J30.89] [facility] CPT-4: 96640 10/26/2018 ([id number]) 52030 EST. P ATIENT, LEVEL III Diagnosis: Influenza due to identified novel influenza A virus with other manifestations[ICD10: J09.X9] [facility] CPT-4: 82205 08/09/2018 ([id number]) 98193 EST. 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 10/26/2018 Patient Education: Patient Medication Summary Completed 10/26/2018 Visit Plan: Inflluenza A -patient's symptoms have resolved and she is feeling better -instructed her to call with any concerns or return of symptoms such as cough -patient verbalized understanding of plan. 08/09/2018 Appointment: Delmis Cheek WPtel: [address] [place] [address] (30 min) Complex 08/09/2018 Patient Education: Patient Medication Summary Completed 08/09/2018 Referral: Jayme Oliveira [facility] Patient informed. Referral info faxed. [...] pain/thumb pain. 06/14/2018 Appointment: Lorna Solis WPtel: [address] [place] [address] (15 min) Moderate 06/14/2018 Patient Education: Patient Medication Summary Completed 06/14/2018 Care Plan: Referral Order SNOMED-CT : [id number] Pending 06/14/2018 Appointment: Lorna Solis WPtel: [address] [place] [address] New Patient 04/19/2018 Visit Plan: Hypertension - [...] patient today. 04/12/2018 Appointment: Lorna Solis WPtel: [facility] New Patient 04/12/2018 Patient Education: Patient Medication Summary Completed 04/12/2018 Patient Education: Cholesterol Management Completed 04/12/2018 Referral: Jayme Oliveira [facility] Referral Appointment Requested Instructions Comment [...]
--- OUTSIDE RECORDS SUMMARY | 2019-12-17 19:48 | XMS REPORT | CCD ---
Author Author Nancy Solis Organization Lorna Solis MD, [facility] Address [address] [place] [address] Phone Care Team Providers Care Machine Deicer Element Winder Name Role Phone PP Unavailable CCM Unavailable Summary Purpose Interface Exchange Insurance Providers Payer name Policy type / Coverage type Covered alliance party ID Effective Begin Date Effective End Date [employer] PPO Medicare Part B [id number] Unknown Family history Father Diagnosis Age At Onset kidney disease Unknown Diabetes mellitus Type 2 Unknown Hypertension Unknown Mother Diagnosis Age At Onset Coronary Artery Disease Unknown Cancer Unknown Stroke Unknown Diabetes mellitus Type 2 Unknown Social History Social History Element Codes Description Effective Dates Marital status Unknown M mera Short 04/12/2018 Number of children Unknown 4 04/12/2018 Employment Unknown Luis Felipe ntly unemployed 04/12/[address]: 349791900 Never smoker 04/12/[address]: 477555649 Never drinks alcohol 04/12/2018 Allergies, Adverse Reactions, Alerts Substance Reaction Codes Entered Date Inactivated Date Status amoxicillin RxNorm: 723 04/12/2018 N o Inactive Date Active bactrim RxNorm: 845413 04/12/2018 No Inactive Date Active * NO KNOWN DRUG EKTA RGIES Unknown 04/12/2018 No Inactive Date Active ciprofloxacin RxNorm: 29385 04/12/2018 No Inactive Date Active Levaquin RxNorm: 57337 04/12/2018 No Inactive Date Active SULFA (SULFONAMIDE A NTIBIOTICS) Unknown 04/12/2018 No Inactive Date Active Past Medical History Illness Codes Condition Status Onset Date Resolved Date Influenza due to britta ntified novel influenza [...] Condition Codes Effectiv e Dates Condition Status Influenza due to britta ntified novel influenza [...] Date Stop Date Sta tus Fill Instructions lisinopril 20 mg-hyd rochlorothiazide 12.5 mg tablet RxNorm: 094418 1 Tablet(s) PO BID 06/14/2018 06/08/2019 Ac tive fluorouracil 5 % top ical cream RxNorm: 976423 1 Application TOP BID 06/14/2018 06/23/2018 Inactive levothyroxine 175 mc g tablet RxNorm: 828974 1 Tablet(s) PO every other day wednesday/wednesday/sat/sun 04/12/2018 04/06/2019 Active montelukast 10 mg ta blet RxNorm: 307097 1 Tablet(s) PO daily 04/12/2018 04/06/2019 Active ibuprofen 600 mg tablet RxNorm: 641325 1 Tablet(s) PO TID 04/12/2018 04/06/2019 Active levothyroxine 150 mc g tablet RxNorm: 195706 1 Tablet(s) PO TIW 04/12/2018 04/06/2019 Active amlodipine 5 mg tablet RxNorm: 176283 1 Tablet(s) PO daily 04/12/2018 04/06/2019 Active allopurinol 300 mg t ablet RxNorm: 773118 1 Tablet(s) PO daily 04/12/2018 04/06/2019 Active ibuprofen 600 mg tablet RxNorm: 294866 1 Tablet(s) PO TID 04/12/2018 04/11/2018 Inactive lisinopril 20 mg-hyd rochlorothiazide 12.5 mg tablet RxNorm: 882710 1 Tablet(s) PO daily 04/12/2018 04/11/2018 Inactive lisinopril 20 mg-hyd rochlorothiazide 12.5 mg tablet RxNorm: 077368 1 Tablet(s) PO daily 04/12/2018 06/13/2018 Inactive amlodipine 5 mg tablet RxNorm: 523862 1 Tablet(s) PO daily 04/12/2018 04/11/2018 Inactive allopurinol 300 mg t ablet RxNorm: 132387 1 Tablet(s) PO daily 04/12/2018 04/11/2018 Inactive garlic 1,000 mg capsule RxNorm: 964489 1 Capsule(s) PO daily No Start Date Active Hair,Skin,Nails with Biotin 7.5 mg-7.5 unit-1,250 mcg chewable tablet RxNorm: 1 Tablet(s) PO daily No Start Date Active Baby Aspirin 81 mg c hewable tablet RxNorm: 107393 3 Tablet(s) PO daily No Start Date Active levothyroxine 150 mc g tablet RxNorm: 422323 wed thur and 175 fri sat sun Tablet(s) PO No Start Date 04/11/2018 Inactive montelukast 10 mg ta blet RxNorm: 884992 1 Tablet(s) PO daily No Start Date 04/11/2018 Inactive Fish Oil 1,000 mg ca psule RxNorm: 4 Capsule(s) PO daily No Start Date 04/11/2018 Inactive Medication Administered No Medication Administered data Immunizations Vaccine Codes Date Status Tetanus, Diptheria, Pertussis CVX: 113 05/19/2017 completed Tetanus/Diptheria CVX: 113 05/19/2017 completed Assessments Condition Codes Effectiv e Dates Influenza due to identified novel influe nza [...] Visit Reason For Visit Effective Dates Notes cough 08/09/2018 hypertension 06/14/2018 urinary urgency 04/12/2018 Results Observation Observation Code Item Item Code Result Date Free T4 Kaz946 FREE T4 1.13 ng/dL 04/12/2018 Comp Metabolic Due647 NA 141 mEq/L 04/12/2018 Comp Metabolic Mll095 K 4.4 mEq/L 04/12/2018 Comp Metabolic Ysm038 CL 103 mEq/L 04/12/2018 Comp Metabolic Hmw691 CO2 31.0 mEq/L 04/12/2018 Comp Metabolic Kgl082 AN ION GAP 11 04/12/2018 Comp Metabolic Ijo005 GL UCOSE 98 mg/dL 04/12/2018 Comp Metabolic Ohx312 Cr eat 0.7 mg/dL 04/12/2018 Comp Metabolic Wcx913 eG FR 84 ml/min/1.73m2 04/12 Comp Metabolic Ztv255 BUN 17 mg/dL 04/12/2018 Comp Metabolic Rly745 B/ C Ratio 23.0 Ratio 04/12/2018 Comp Metabolic Ypu072 CA LCIUM 10.0 mg/dL 04/12/2018 Comp Metabolic Nvu699 AL K PHOS 70 U/L 04/12/2018 Comp Metabolic Hvw374 T(SGOT) 40 U/L 04/12/2018 Comp Metabolic Zhh212 AL T(SGPT) 48 U/L 04/12/2018 Comp Metabolic Iit129 BI LI T 0.4 mg/dL 04/12/2018 Comp Metabolic Ufn874 AL BUMIN 4.2 g/dL 04/12/2018 Comp Metabolic Jfn330 TP RO 6.9 g/dL 04/12/2018 Comp Metabolic Hbg824 GL OB 2.7 g/dL 04/12/2018 Comp Metabolic Clz521 A/ G Ratio 1.6 Ratio 04/12/2018 Comp Metabolic Fsr710 Os mo 283 mOsmo 04/12/2018 Uric Acid [...] 29.4 pg 04/12/2018 Cbc With Differential Ord2 [place]% 12.3 % 04/12/2018 Cbc With Differential Ord2 [...] 2.02 K/ul 04/12/2018 Cbc With Differential Ord2 [place] ABS# 0.6 K/ul 04/12/2018 Cbc With Differential [...] System Result Effective Dates Constitutional recent illness 08/09/2018 Constitutional No chills [...] No Procedures data Vital Signs Date Vital 08/09/2018 Blood Pressure 1: 120/84 Code: 8480-6 Heart Rate 1: 71 bpm Height: SpO2: 96% Weight: 06/14/2018 Blood Pressure 1: 136/84 Code: 8480-6 BMI: 43.8 Code: 00004-5 Heart Rate 1: 73 bpm Height: 5'8" SpO2: 96% Weight: 288 lbs 04/12/2018 Blood Pressure 1: 138/86 Code: 8480-6 BMI: 43.0 Code: 56375-8 Heart Rate 1: 61 bpm Height: 5'8" SpO2: 97% Weight: 283 lbs Functional Status No Functional Status data History of Present Illness Symptom Name Status Resu lt Effective Date Notes Location in the lung 08/09/2018 None Quality [...] Encounters Encounter Performer Loca tion Codes Date ([id number]) 85708 EST. P AT[place]ON[place], LEVEL III Diagnosis: Influenza due to identified novel influenza A virus with other manifestations[ICD10: J09.X9] Delmis Solis MD, [facility] CPT-4: 17957 08/09/2018 ([id number]) 64637 EST. 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 08/09/2018 Patient Education: Patient Medication Summary Completed 08/09/2018 Referral: Jayme Oliveira [facility] Patient informed. Referral info faxed. Completed 06/27/2018 [...] pain/thumb pain. 06/14/2018 Appointment: Lorna Solis WPtel: [facility] (15 min) Moderate 06/14/2018 Patient Education: Patient Medication Summary Completed 06/14/2018 Care Plan: Referral Order SNOMED-CT : [id number] Pending 06/14/2018 Appointment: Lorna Solis WPtel: [facility] New Patient 04/19/2018 Visit Plan: Hypertension - [...] patient today. 04/12/2018 Appointment: Lorna Solis WPtel: [address] [place], [place] [address] New Patient 04/12/2018 Patient Education: Patient Medication Summary Completed 04/12/2018 Patient Education: Cholesterol Management Completed 04/12/2018 [facility] App[facility]ment Requested Instructions Comment . Inflluenza A -dorothy ent's symptoms have [...]
--- OUTSIDE RECORDS SUMMARY | 2019-12-17 19:48 | XMS REPORT | CCD ---
Author Author Nancy Solis Organization Lorna Solis MD, [facility] Address [address] [place] [address] Phone Care Team Providers Care Forest Ecology Professor Name Role Phone PP Unavailable CCM Unavailable Summary Purpose Interface Exchange Insurance Providers Payer name Policy type / Coverage type Covered constitution party ID Effective Begin Date Effective End Date [employer] PPO Medicare Part B [id number] Unknown Family history Father Diagnosis Age At [...] ntly unemployed 04/12/[address]: 285048641 Never smoker 04/12/[address]: 639585988 Never drinks alcohol 04/12/2018 Allergies, Adverse Reactions, Alerts Substance Reaction Codes Entered Date Inactivated Date Status amoxicillin RxNorm: 723 04/12/2018 N o Inactive Date Active bactrim RxNorm: 384608 04/12/2018 No Inactive Date Active * NO KNOWN DRUG EKTA RGIES Unknown 04/12/2018 No Inactive Date Active ciprofloxacin RxNorm: 77029 04/12/2018 No Inactive Date Active Levaquin RxNorm: 65805 04/12/2018 No Inactive Date Active SULFA (SULFONAMIDE [...] 20 mg-hyd rochlorothiazide 12.5 mg tablet RxNorm: 686385 1 Tablet(s) PO BID 06/14/2018 06/08/2019 Ac tive fluorouracil 5 % top ical cream RxNorm: 210978 1 Application TOP BID 06/14/2018 06/23/2018 Inactive levothyroxine 175 mc g tablet RxNorm: 055290 1 Tablet(s) PO every other day wednesday/wednesday/sat/sun 04/12/2018 04/06/2019 Active montelukast 10 mg ta blet RxNorm: 069803 1 Tablet(s) PO daily 04/12/2018 04/06/2019 Active ibuprofen 600 mg tablet RxNorm: 646290 1 Tablet(s) PO TID 04/12/2018 04/06/2019 Active levothyroxine 150 mc g tablet RxNorm: 376776 1 Tablet(s) PO TIW 04/12/2018 04/06/2019 Active amlodipine 5 mg tablet RxNorm: 497867 1 Tablet(s) PO daily 04/12/2018 04/06/2019 Active allopurinol 300 mg t ablet RxNorm: 337178 1 Tablet(s) PO daily 04/12/2018 04/06/2019 Active ibuprofen 600 mg tablet RxNorm: 154627 1 Tablet(s) PO TID 04/12/2018 04/11/2018 Inactive lisinopril 20 mg-hyd rochlorothiazide 12.5 mg tablet RxNorm: 153718 1 Tablet(s) PO daily 04/12/2018 04/11/2018 Inactive lisinopril 20 mg-hyd rochlorothiazide 12.5 mg tablet RxNorm: 205094 1 Tablet(s) PO daily 04/12/2018 06/13/2018 Inactive amlodipine 5 mg tablet RxNorm: 995125 1 Tablet(s) PO daily 04/12/2018 04/11/2018 Inactive allopurinol 300 mg t ablet RxNorm: 120612 1 Tablet(s) PO daily 04/12/2018 04/11/2018 Inactive garlic 1,000 mg capsule RxNorm: 309754 1 Capsule(s) PO daily No Start Date Active Hair,Skin,Nails with Biotin 7.5 mg-7.5 unit-1,250 mcg chewable tablet RxNorm: 1 Tablet(s) PO daily No Start Date Active Baby Aspirin 81 mg c hewable tablet RxNorm: 289708 3 Tablet(s) PO daily No Start Date Active levothyroxine 150 mc g tablet RxNorm: 137229 wed thur and 175 fri sat sun Tablet(s) PO No Start Date 04/11/2018 Inactive montelukast 10 mg ta blet RxNorm: 158721 1 Tablet(s) PO daily No Start Date [...] Item Item Code Result Date Free T4 Wue169 FREE T4 1.13 ng/dL 04/12/2018 Comp Metabolic Yso513 NA 141 mEq/L 04/12/2018 Comp Metabolic Dzn313 K 4.4 mEq/L 04/12/2018 Comp Metabolic Jqw473 CL 103 mEq/L 04/12/2018 Comp Metabolic Obk495 CO2 31.0 mEq/L 04/12/2018 Comp Metabolic Toz052 AN ION GAP 11 04/12/2018 Comp Metabolic Uws446 GL UCOSE 98 mg/dL 04/12/2018 Comp Metabolic Hqm196 Cr eat 0.7 mg/dL 04/12/2018 Comp Metabolic Acw283 eG FR 84 ml/min/1.73m2 04/12 Comp Metabolic Jby624 BUN 17 mg/dL 04/12/2018 Comp Metabolic Zbl412 B/ C Ratio 23.0 Ratio 04/12/2018 Comp Metabolic Lgd418 CA LCIUM 10.0 mg/dL 04/12/2018 Comp Metabolic Lkv449 AL K PHOS 70 U/L 04/12/2018 Comp Metabolic Yhj652 T(SGOT) 40 U/L 04/12/2018 Comp Metabolic Ubm707 AL T(SGPT) 48 U/L 04/12/2018 Comp Metabolic Mcr572 BI LI T 0.4 mg/dL 04/12/2018 Comp Metabolic Kbm676 AL BUMIN 4.2 g/dL 04/12/2018 Comp Metabolic Asp981 TP RO 6.9 g/dL 04/12/2018 Comp Metabolic Ooy514 GL OB 2.7 g/dL 04/12/2018 Comp Metabolic Cns705 A/ G Ratio 1.6 Ratio 04/12/2018 Comp Metabolic Pps244 Os mo 283 mOsmo 04/12/2018 Uric Acid [...] 29.4 pg 04/12/2018 Cbc With Differential Ord2 [place]% 12.3 % 04/12/2018 Cbc With Differential Ord2 [...] 2.02 K/ul 04/12/2018 Cbc With Differential Ord2 [place] ABS# 0.6 K/ul 04/12/2018 Cbc With Differential [...] 1: 136/84 Code: 8480-6 BMI: 43.8 Code: 37712-7 Heart Rate 1: 73 bpm Height: 5'8" SpO2: 96% Weight: 288 lbs 04/12/2018 Blood Pressure 1: 138/86 Code: 8480-6 BMI: 43.0 Code: 91403-2 Heart Rate 1: 61 bpm Height: 5'8" [...] Encounters Encounter Performer Loca tion Codes Date ([id number]) 56070 EST. P AT[place]ON[place], LEVEL III Diagnosis: Influenza due to identified novel influenza A virus with other manifestations[ICD10: J09.X9] Delmis Solis MD, [facility] CPT-4: 80194 08/09/2018 ([id number]) 53930 EST. 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 08/09/2018 Patient Education: Patient Medication Summary Completed 08/09/2018 Referral: Jayme Oliveira [facility] Patient informed. Referral info faxed. Completed 06/27/2018 [...] pain/thumb pain. 06/14/2018 Appointment: Lorna Solis WPtel: [facility] (15 min) Moderate 06/14/2018 Patient Education: Patient Medication Summary Completed 06/14/2018 Care Plan: Referral Order SNOMED-CT : 710769472 Pending 06/14/2018 Appointment: Lorna Solis WPtel: [facility] New Patient 04/19/2018 Visit Plan: Hypertension [...] patient today. 04/12/2018 Appointment: Lorna Solis WPtel: [address] [place], [place] [address] New Patient 04/12/2018 Patient Education: Patient Medication Summary Completed 04/12/2018 Patient Education: Cholesterol Management Completed 04/12/2018 [facility] Referral Appointment Requested Instructions Comment . Inflluenza [...]
--- OUTSIDE RECORDS SUMMARY | 2019-12-17 19:49 | XMS REPORT | Continuity of Care Document ---
Author Organization Unknown Address Unknown Phone Unavailable Allergies Active Description Code Type Severity Reaction Onset Reported/Identified Relationship to Patient Clinical Status Yes ciprofloxacin [id number] Steven g Allergy Unknown N/A 08/02/2018 Yes levofloxacin [id number] Drug Allergy Unknown N/A 08/02/2018 Yes losartan [id number] Drug Allergy Unknown N/A 08/02/2018 Yes sulfamethoxazole [id number] Drug Allergy Unknown N/A 08/02/2018 Yes trimethoprim [id number] Drug Allergy Unknown N/A 08/02/2018 Medications There is no data. Problems Date Dx Coded Attending Type Code Diagnosis Diagnosed By 08/02/2018 KIRBY CARL Ot E03.9 HYPOTHYROIDISM, UNSPECIFIED 08/02/2018 KIRBY CARL Ot J10.1 FLU DUE TO OTH IDENT INFLUENZA VIRUS W O 08/02/2018 KIRBY CARL Ot J45.909 UNSPECIFIED ASTHMA, UNCOMPLICATED 08/02/2018 KIRBY CARL Ot R 05 COUGH 08/02/2018 KIRBY CARL Ot Z79.51 RISK MANAGEMENT ANALYST (CURRENT) USE OF INHALED STERO 08/02/2018 KIRBY CARL Ot Z79.52 LONG-TERM (CURRENT) USE OF SYSTEMIC STER 08/02/2018 KIRBY CARL Ot Z88.0 ALLERGY STATUS TO PENICILLIN 08/02/2018 KIRBY CARL Ot Z88.6 ALLERGY STATUS TO ANALGESIC AGENT STATUS 08/02/2018 KIRBY CARL Ot Z90.710 ACQUIRED ABSENCE OF BOTH CERVIX AND UTER 08/04/2018 KIRBY CARL Ot E03.9 HYPOTHYROIDISM, UNSPECIFIED 08/04/2018 KIRBY CARL Ot J10.1 FLU DUE TO OTH IDENT INFLUENZA VIRUS W O 08/04/2018 KIRBY CARL Ot J45.909 UNSPECIFIED ASTHMA, UNCOMPLICATED 08/04/2018 KIRBY CARL Ot R 05 COUGH 08/04/2018 KIRBY CARL Ot Z79.51 LONG-TERM (CURRENT) USE OF INHALED STERO 08/04/2018 KIRBY CARL Ot Z79.52 RISK MANAGEMENT ANALYST (CURRENT) USE OF SYSTEMIC STER 08/04/2018 KIRBY CARL Ot Z88.0 ALLERGY STATUS TO PENICILLIN 08/04/2018 KIRBY CARL Ot Z88.6 ALLERGY STATUS TO ANALGESIC AGENT STATUS 08/04/2018 KIRBY CARL Ot Z90.710 ACQUIRED ABSENCE OF BOTH CERVIX AND UTER 08/08/2018 KIRBY CARL Ot E03.9 HYPOTHYROIDISM, UNSPECIFIED 08/08/2018 KIRBY CARL Ot J10.1 FLU DUE TO OTH IDENT INFLUENZA VIRUS W O 08/08/2018 KIRBY CARL Ot J45.909 UNSPECIFIED ASTHMA, UNCOMPLICATED 08/08/2018 KIRBY CARL Ot R 05 COUGH 08/08/2018 KIRBY CARL Ot Z79.51 LONG-TERM (CURRENT) USE OF INHALED STERO 08/08/2018 KIRBY CARL Ot Z79.52 LONG-TERM (CURRENT) USE OF SYSTEMIC STER 08/08/2018 KIRBY CARL Ot Z88.0 ALLERGY STATUS TO PENICILLIN 08/08/2018 KIRBY CARL Ot Z88.6 ALLERGY STATUS TO ANALGESIC AGENT STATUS 08/08/2018 KIRBY CARL Ot Z90.710 ACQUIRED ABSENCE OF BOTH CERVIX AND UTER Procedures There is no data. Results Test Result Range Influenza virus A and B antigen detectio n - 08/02/18 15:24 CALL POSITIVES (F1 HELP) [facility] FLU RESULT POSITIVE FOR INFLUENZA A ANT IGEN, NEG FOR B ANTIGEN, BY [facility] Streptococcus pyogenes antigen detection - 12/15/19 13:45 Streptococcus pyogenes antigen detection NEGATIVE NEGATIVE Influenza virus A and B antigen detectio n - 12/15/19 13:45 FLU RESULT NEGATIVE FOR INFLUENZA A AND B ANTIGENS BY [facility] Bacterial throat culture - 12/15/19 13:4 5 Bacterial throat culture NBS NRG Encounters ACCT No. Visit Date/Time Discharge Status Pt. Type Provider Facility Loc./Unit Complaint [id number] 08/02/2018 14:58:00 019 17:32:00 DIS Emergency MUNA BALBUENA, KIRBY Santizo [facility] FLU SYMPTOMS [id number] 12/15/2019 14:30:[address] Outpatient MAYA FORD, IRMA Squires [facility] LABNPT
[2019-12-17 20:29] LABS: BASOPHILS # (AUTO) 0.1 10^3/uL (0.0-0.1); BASOPHILS % (AUTO) 1 % (0-10); EOSINOPHILS # (AUTO) 0.2 10^3/uL (0.0-0.3); EOSINOPHILS % (AUTO) 3 % (0-10); HEMATOCRIT 38 % (35-52); HEMOGLOBIN 12.2 G/DL (11.5-16.0); LYMPHOCYTES # (AUTO) 2.7 X 10^3 (1.0-4.0); LYMPHOCYTES % (AUTO) 28 % (12-44); MEAN CORPUSCULAR HEMOGLOBIN 27 PG (25-34); MEAN CORPUSCULAR HGB CONC 32 G/DL (32-36); MEAN CORPUSCULAR VOLUME 85 FL (80-99); MEAN PLATELET VOLUME 9.6 FL (7.4-10.4); MONOCYTES # (AUTO) 0.9 X 10^3 (0.0-1.0); MONOCYTES % (AUTO) 9 % (0-12); NEUTROPHILS # (AUTO) 5.7 X 10^3 (1.8-7.8); NEUTROPHILS % (AUTO) 60 % (42-75); PLATELET COUNT 349 10^3/uL (130-400); RED CELL DISTRIBUTION WIDTH 17.5 % (10.0-14.5); WHITE BLOOD COUNT 9.6 10^3/uL (4.3-11.0)
[2019-12-17 20:36] LABS: ALBUMIN 4.4 GM/DL (3.2-4.5)
[2019-12-17 20:37] LABS: CHLORIDE 104 MMOL/L (98-107); POTASSIUM 3.6 MMOL/L (3.6-5.0); SODIUM 143 MMOL/L (135-145)
[2019-12-17 20:38] LABS: CALCIUM 10.1 MG/DL (8.5-10.1)
[2019-12-17 20:39] LABS: GLUCOSE 95 MG/DL (70-105); TOTAL PROTEIN 7.7 GM/DL (6.4-8.2)
[2019-12-17 20:40] LABS: CARBON DIOXIDE 26 MMOL/L (21-32)
[2019-12-17 20:41] LABS: BILIRUBIN,TOTAL 0.3 MG/DL (0.1-1.0)
[2019-12-17 20:42] LABS: ALKALINE PHOSPHATASE 104 U/L (40-136)
[2019-12-17 20:43] LABS: CREATININE SERUM 0.83 MG/DL (0.60-1.30); GFR ESTIMATED > 60
[2019-12-17 20:44] LABS: BUN/CREATININE RATIO 13
[2019-12-17 20:45] LABS: ALANINE AMINOTRANSFERASE 33 U/L (0-55)
--- NOTE | 2019-12-17 20:47 | NUR ---
ARNEL FORD AT [facility] NOTIFIED OF PT STATUS AND PENDING D/C. STAFF TO ARRANGE TRANSPORT BACK TO THEIR FACILITY.
--- NOTE | 2019-12-17 20:49 | ED Cough/URI ---
General Chief Complaint: Respiratory Problems Stated Complaint: SOB Source: patient Exam Limitations: no limitations History of Present Illness Date Seen by Provider: December 17, 2019 Time Seen by Provider: 20:47 Initial Comments To ER with reports of persistent shortness of breath 1 week. She's had some swelling incision and pain to the posterior left calf. She's had a cough that is occasionally productive. No fevers. She has not traveled outside of [place] for several months all she had outpatient influenza, strep, COVID-19 on Wednesday. Strep was negative flu was negative Covid swab is pending. Timing/Duration: constant Severity/Quality: productive cough Associated Symptoms: cough Allergies and Home Medications Allergies Coded Allergies: ciprofloxacin (Verified Allergy, Unknown, 08/02/18) levofloxacin (Verified Allergy, Unknown, 08/02/18) losartan (Verified Allergy, Unknown, 08/02/18) sulfamethoxazole (Verified Allergy, Unknown, 08/02/18) trimethoprim (Verified Allergy, Unknown, 08/02/18) Home Medications Albuterol Sulfate 18 Gm Hfa.aer.ad, 2 PUFF INH Q4H PRN for WHEEZING Prescribed by: KIRBY TORO on 08/02/18 1624 Lisinopril/Hydrochlorothiazide 1 Each Tablet, 1 EACH PO DAILY, (Reported) Lisinopril/Hydrochlorothiazide 1 Each Tablet, 1 EACH PO BID, (Reported) Ondansetron 8 Mg Tab.rapdis, 8 MG PO Q6H PRN for NAUSEA/VOMITING Prescribed by: KIRBY TORO on 08/02/18 1624 Oseltamivir Phosphate 75 Mg Cap, 75 MG PO BID Prescribed by: KIRBY TORO on 08/02/18 1624 Prednisone 20 Mg Tab, 40 MG PO DAILY Prescribed by: KIRBY TORO on 08/02/18 1624 Patient Home Medication List Home Medication List Reviewed: Yes Review of Systems Review of Systems Constitutional: see HPI; No chills, No fever EENTM: see HPI Respiratory: see HPI, cough, short of breath Cardiovascular: no symptoms reported; No chest pain, No edema Genitourinary: no symptoms reported Musculoskeletal: no symptoms reported Skin: no symptoms reported Psychiatric/Neurological: No Symptoms Reported Hematologic/Lymphatic: No Symptoms Reported Immunological/Allergic: no symptoms reported Past Zvlxgpp-Xfozbf-Yuvbnt Hx Patient Social History Recent Hopitalizations: No Past Medical History Surgeries: Yes Hysterectomy Respiratory: Yes Asthma Cardiac: No Neurological: No Genitourinary: No Gastrointestinal: No Musculoskeletal: No Endocrine: Yes Hypothyroidsim HEENT: No Cancer: No Psychosocial: No Integumentary: No Family Medical History No Pertinent Family Hx Physical Exam Capillary Refill : Height: 5'8.00" Weight: 282lbs. oz. 127.503310hb; BMI Method:Stated General Appearance: WD/WN, no apparent distress, other (oxygen saturation 97% room air. Heart rate 85.) Eyes: Bilateral Eye Normal Inspection, Bilateral Eye PERRL, Bilateral Eye EOMI HEENT: PERRL/EOMI, normal ENT inspection Neck: non-tender, full range of motion Respiratory: lungs clear, normal breath sounds, no respiratory distress, no accessory muscle use Cardiovascular: regular rate, rhythm, no murmur Gastrointestinal: normal bowel sounds, non tender, soft Extremities: normal range of motion, non-tender Neurologic/Psychiatric: alert, normal mood/affect, oriented x 3 Skin: normal color, warm/dry Progress/Results/Core Measures Suspected Sepsis SIRS Temperature: Pulse: Respiratory Rate: Laboratory Tests 12/17/19 20:20: White Blood Count 9.6 Blood Pressure / Mean: Laboratory Tests 12/17/19 20:20: Creatinine 0.83, Platelet Count 349, Total Bilirubin 0.3 Results/Orders Lab Results Laboratory Tests Test 12/17/19 20:20 Range/Units White Blood Count 9.6 4.3-11.0 10^3/uL Red Blood Count 4.45 4.35-5.85 10^6/uL Hemoglobin 12.2 11.5-16.0 G/DL Hematocrit 38 35-52 % Mean Corpuscular Volume 85 80-99 FL Mean Corpuscular Hemoglobin 27 25-34 PG Mean Corpuscular Hemoglobin Concent 32 32-36 G/DL Red Cell Distribution Width 17.5 H 10.0-14.5 % Platelet Count 349 130-400 10^3/uL Mean Platelet Volume 9.6 7.4-10.4 FL Neutrophils (%) (Auto) 60 42-75 % Lymphocytes (%) (Auto) 28 12-44 % Monocytes (%) (Auto) 9 0-12 % Eosinophils (%) (Auto) 3 0-10 % Basophils (%) (Auto) 1 0-10 % Neutrophils # (Auto) 5.7 1.8-7.8 X 10^3 Lymphocytes # (Auto) 2.7 1.0-4.0 X 10^3 Monocytes # (Auto) 0.9 0.0-1.0 X 10^3 Eosinophils # (Auto) 0.2 0.0-0.3 10^3/uL Basophils # (Auto) 0.1 0.0-0.1 10^3/uL D-Dimer 2.35 H 0.00-0.49 UG/ML Sodium Level 143 135-145 MMOL/L Potassium Level 3.6 3.6-5.0 MMOL/L Chloride Level 104 98-107 MMOL/L Carbon Dioxide Level 26 21-32 MMOL/L Anion Gap 13 5-14 MMOL/L Blood Urea Nitrogen 11 7-18 MG/DL Creatinine 0.83 0.60-1.30 MG/DL Estimat Glomerular Filtration Rate > 60 BUN/Creatinine Ratio 13 Glucose Level 95 70-105 MG/DL Calcium Level 10.1 8.5-10.1 MG/DL Corrected Calcium 9.8 8.5-10.1 MG/DL Total Bilirubin 0.3 0.1-1.0 MG/DL Aspartate Amino Transf (AST/SGOT) 30 5-34 U/L Alanine Aminotransferase (ALT/SGPT) 33 0-55 U/L Alkaline Phosphatase 104 40-136 U/L C-Reactive Protein High Sensitivity 1.87 H 0.00-0.50 MG/DL B-Type Natriuretic Peptide 11.4 <100.0 PG/ML Total Protein 7.7 6.4-8.2 GM/DL Albumin 4.4 3.2-4.5 GM/DL My Orders Orders - GYPSY BOWENS G[employer] TRANSFER OPERATOR BNP (12/17/19 19:59) Cbc With Automated Diff (12/17/19 19:59) Comprehensive Metabolic Panel (12/17/19 19:59) Fibrin Degradation Products (12/17/19 19:59) Hs C Reactive Protein (12/17/19 19:59) Chest 1 View, Ap/Pa Only (12/17/19 19:59) Ed Iv/Invasive Line Start (12/17/19 19:59) Ct Angio Chest W (12/17/19 20:49) Iohexol Injection (Omnipaque 350 Mg/Ml 1 (12/17/19 21:00) Received Contrast (Hold Metformin- Contr (12/17/19 21:00) Ns (Ivpb) (Sodium Chloride 0.9% Ivpb Bag (12/17/19 21:00) Rx-Albuterol Inhaler (Rx-Proair) (12/17/19 21:57) Enoxaparin Injection (Lovenox Injection) (12/17/19 22:00) Enoxaparin Injection (Lovenox Injection) (12/17/19 22:00) Medications Given in ED Current Medications Medications Dose Ordered Sig/Georgie Route Start Time Stop Time Status Last Admin Dose Admin Iohexol 100 ml ONCE ONCE IV 12/17/19 21:00 12/17/19 21:01 DC 12/17/19 21:34 100 ML Sodium Chloride 100 ml ONCE ONCE IV 12/17/19 21:00 12/17/19 21:01 DC 12/17/19 21:34 80 ML Vital Signs/I&O Capillary Refill : Diagnostic Imaging Diagonstic Imaging: Xray, CT Comments NAME: JERMAINE LICONA [facility] REC#: [id number] PT STATUS: REG ER : 1955 PHYSICIAN: GYPSY BOWENS APRN ADMIT DATE: 12/17/19/ER Signed Date of Exam:12/17/19 CHEST 1 VIEW, AP/PA ONLY EXAMINATION: Portable chest. INDICATION: Shortness of breath. COVID-19 person of interest. FINDINGS: By plain radiography there are no definitive findings of interstitial or alveolar infiltrates. There is no effusion evident. There is no pneumothorax. Heart size is mildly prominent but pulmonary vascularity appears appropriate. There appear to be chronic pulmonary interstitial changes. IMPRESSION: Apparent interstitial changes within the lungs. Correlation as to any known smoking history appreciated. By plain radiography, no definable interstitial or alveolar infiltrates are evident. Dictated by: Dictated on workstation # [id number] Dict: 12/17/192048 Trans: 12/17/192099 [id number] Interpreted by: CHITO RIDDLE MD Electronically signed by: CHITO RIDDLE MD 12/17/192099 Departure Communication (Admissions) 2139-radiologist called to report that if we are treating her as Covid we should continue to do so as her CT chest appearance is consistent with Covid infection or any viral pneumonia for that matter. However she is afebrile and hasn't left her house in 2 months she states. Her daughter has done all of the shopping for her. She does complain of some pain behind the left knee but there is no obvious swelling, though this is difficult to determine due to body habitus. Given the leg pain with elevated d-dimer I discussed with her the risk versus benefits of empiric anticoagulation while awaiting ultrasound as we do not have that a vailable after hours. We've agreed to give 1 dose of Lovenox tonight, ultrasound lower extremity venous tomorrow morning with results to be sent to Dr. Solis. COVID-19 swab is still pending, I've called Yoni from lab who then called [facility]. They state they expect to have it resulted tomorrow morning. Impression Primary Impression: Viral pneumonia Additional Impression: Elevated d-dimer Disposition: HOME, SELF-CARE Condition: Stable Departure-Patient Inst. Decision time for Depature: 21:41 Referrals: IRMA SOLIS MD (PCP/Family) Primary Care Physician Patient Instructions: VIRAL SYNDROME Add. Discharge Instructions: 1. Go home and continue to isolate until the COVID-19 swabs are resulted in which we would would be tomorrow morning. Call the phone number listed on the scheduling sheet for appointment time to have the ultrasound done. When you call, let them know you are also been tested for Covid. All discharge instructions reviewed with patient and/or family. Voiced understanding. Copy Copies To 1: IRMA SOLIS MD, PETER J APRN December 17, 2019 20:49
[2019-12-17] MEDS ORDERED: IOHEXOL 350 MG/ML 100 ML (OMNIPAQUE 350) VIAL IV ONE (21:00)
[2019-12-17] MEDS ORDERED: NS 100 ML (IVPB) BAG IV ONE (21:00)
[2019-12-17] MEDS ORDERED: HOLD METFORMIN - RECEIVED CONTRAST 20 ML VIAL IV SCH (21:00)
--- NOTE | 2019-12-17 21:01 | Diagnostic Imaging Report ---
EXAMINATION: Portable chest. INDICATION: Shortness of breath. COVID-19 person of interest. FINDINGS: By plain radiography there are no definitive findings of interstitial or alveolar infiltrates. There is no effusion evident. There is no pneumothorax. Heart size is mildly prominent but pulmonary vascularity appears appropriate. There appear to be chronic pulmonary interstitial changes. IMPRESSION: Apparent interstitial changes within the lungs. Correlation as to any known smoking history appreciated. By plain radiography, no definable interstitial or alveolar infiltrates are evident. Dictated by: Dictated on workstation # [id number]
--- NOTE | 2019-12-17 21:44 | Diagnostic Imaging Report ---
PROCEDURE: CT angiography of the chest with contrast. TECHNIQUE: Multiple contiguous axial images were obtained through the chest after uneventful bolus administration of intravenous contrast. 3D reconstructed CTA MIP acquisitions were also performed. Auto Exposure Controls were utilized during the CT exam to meet ALARA standards for radiation dose reduction. INDICATION: Shortness of breath. COMPARISON: Chest radiograph performed the same day. FINDINGS: No CT angiographic findings of filling defect within the pulmonary arteries to suggest pulmonary embolism. Thoracic aorta demonstrates no evidence of dissection or aneurysm. Heart is appropriate. There is no pericardial collection. There is no finding of pathologic enlargement of the mediastinal lymph nodes. The lungs demonstrate patchy ill-defined regions of groundglass opacity within the lungs, bilaterally. There is no finding of a pleural effusion. There is no focal consolidation. There is no pulmonary nodule or mass. The visualized portion of the upper abdomen demonstrates no acute process. There are gallstones within the gallbladder and there is a left renal cyst. No acute or suspicious osseous abnormality is demonstrated. IMPRESSION: 1. Bilateral patchy regions of abnormal groundglass opacity within both lungs. There is no effusion. These findings are nonspecific but can be seen in the setting of Covid-19. 2. No findings of pulmonary embolism. 3. Thoracic aorta unremarkable. 4. No mediastinal adenopathy. 5. Cholelithiasis. Findings discussed with Rober Esparza APRN at time of dictation. Dictated by: Dictated on workstation # [id number]
[2019-12-17] MEDS ORDERED: RX-ALBUTEROL INHALER (PROAIR) 8.5 GM IH STA (21:57)
[2019-12-17] MEDS ORDERED: ENOXAPARIN 100 MG/1 ML (LOVENOX) SYR SC ONE (22:00)
[2019-12-17] MEDS ORDERED: ENOXAPARIN 30 MG/0.3 ML (LOVENOX) SYR SC ONE (22:00)
[2019-12-17 22:30] VITALS: BP 162/82
== END 2019-12-17 22:30 | disposition home or self-care (01) ==
LOC: EDUNIT# 19:36 → ER 19:39
DX: J12.9 Viral pneumonia, unspecified (principal); R79.1 Abnormal coagulation profile; J45.909 Unspecified asthma, uncomplicated; Z20.828 Contact with and (suspected) exposure to other viral communicable diseases; Z88.1 Allergy status to other antibiotic agents; Z88.2 Allergy status to sulfonamides; Z88.8 Allergy status to other drugs, medicaments and biological substances; Z79.52 Long term (current) use of systemic steroids
CPT/HCPCS: 36415; 71045; 71275; 80053; 83880; 85025; 85379; 86141; 96372

== ENCOUNTER → 2019-12-18 | Outpatient (CLI) | payer MEDICARE ==
--- NOTE | 2019-12-18 14:21 | Diagnostic Imaging Report ---
PROCEDURE: US left lower extremity venous. TECHNIQUE: Multiple real-time grayscale images were obtained over the left lower extremity in various projections. Additional duplex Doppler and color Doppler images were also obtained. INDICATION: Left calf pain and elevated d-dimer. There is no evidence of left lower extremity DVT. Left lower extremity deep venous system shows normal compressibility with normal response to augmentation and Valsalva. No fluid collection or mass is detected. IMPRESSION: No evidence of left lower extremity DVT. Dictated by: Dictated on workstation # [id number]
== END ==
LOC: RAD 11:48
PROVIDERS: ATTEND Nurse Practitioner Family
DX: M79.605 Pain in left leg (principal); R79.89 Other specified abnormal findings of blood chemistry

== ENCOUNTER → 2020-01-01 | Outpatient (CLI) | payer MEDICARE ==
[2020-01-01 12:30] LABS: BASOPHILS # (AUTO) 0.1 10^3/uL (0.0-0.1); BASOPHILS % (AUTO) 1 % (0-10); EOSINOPHILS # (AUTO) 0.4 10^3/uL (0.0-0.3); EOSINOPHILS % (AUTO) 3 % (0-10); HEMATOCRIT 37 % (35-52); HEMOGLOBIN 11.8 G/DL (11.5-16.0); LYMPHOCYTES # (AUTO) 2.3 X 10^3 (1.0-4.0); LYMPHOCYTES % (AUTO) 17 % (12-44); MEAN CORPUSCULAR HEMOGLOBIN 27 PG (25-34); MEAN CORPUSCULAR HGB CONC 32 G/DL (32-36); MEAN CORPUSCULAR VOLUME 85 FL (80-99); MEAN PLATELET VOLUME 9.7 FL (7.4-10.4); MONOCYTES # (AUTO) 1.1 X 10^3 (0.0-1.0); MONOCYTES % (AUTO) 9 % (0-12); NEUTROPHILS # (AUTO) 9.6 X 10^3 (1.8-7.8); NEUTROPHILS % (AUTO) 71 % (42-75); PLATELET COUNT 431 10^3/uL (130-400); RED CELL DISTRIBUTION WIDTH 17.2 % (10.0-14.5); WHITE BLOOD COUNT 13.4 10^3/uL (4.3-11.0)
[2020-01-01 12:36] LABS: ALBUMIN 4.1 GM/DL (3.2-4.5); POTASSIUM 3.7 MMOL/L (3.6-5.0)
[2020-01-01 12:37] LABS: CALCIUM 9.8 MG/DL (8.5-10.1)
[2020-01-01 12:38] LABS: TOTAL PROTEIN 7.1 GM/DL (6.4-8.2)
[2020-01-01 12:40] LABS: BILIRUBIN,TOTAL 0.4 MG/DL (0.1-1.0)
[2020-01-01 12:42] LABS: CREATININE SERUM 0.93 MG/DL (0.60-1.30)
--- NOTE | 2020-01-01 12:54 | Diagnostic Imaging Report ---
EXAMINATION: PA and lateral chest at 12:13 p.m. INDICATION: Shortness of breath. FINDINGS: The heart size is within normal limits and stable when compared to 12/17/2019. The groundglass densities seen in both lungs noted on the CT chest exam of 12/17/2019 are not well appreciated on this study. There is still no evidence for pneumonia, failure, or pleural effusion. The mediastinum is not widened. The osseous structures are intact. IMPRESSION: There is no evidence for active disease. Clinical follow-up is recommended, however. Dictated by: Dictated on workstation # [id number]
== END ==
LOC: RAD 11:49
PROVIDERS: ATTEND Nurse Practitioner Family
DX: R06.02 Shortness of breath (principal)
CPT/HCPCS: 36415; 71046; 80053; 83880; 85025; 85379

== ENCOUNTER 2020-01-15 05:43 | Outpatient (RCR) | payer MEDICARE, OTHER ==
[~2020-01-15] VITALS: Ht 172 cm; Wt 137.3 kg
[2020-01-15] MEDS ORDERED: MV-M1TAB38 PO (09:37)
[2020-01-15] MEDS ORDERED: SENN-175 PO (09:37)
[2020-01-15] MEDS ORDERED: CHOL10007 PO (09:37)
[2020-01-15] MEDS ORDERED: MULT-985 PO (09:37)
[2020-01-15] MEDS ORDERED: IBUP-1773 PO (09:37)
[2020-01-15] MEDS ORDERED: MONT10TA26 PO (09:37)
[2020-01-15] MEDS ORDERED: NFNEB10T PO (09:37)
[2020-01-15] MEDS ORDERED: GARL10002 PO (09:37)
[2020-01-15] MEDS ORDERED: OMG1KC PO (09:37)
[2020-01-15] MEDS ORDERED: HYDR25TA4 PO (09:37)
[2020-01-15 09:41] VITALS: BP 140/75
== END 2020-01-15 10:08 | disposition home or self-care (01) ==
LOC: PREOP 05:43
PROVIDERS: ATTEND Surgery
DX: Z01.818 Encounter for other preprocedural examination (principal); Z11.59 Encounter for screening for other viral diseases; Z11.2 Encounter for screening for other bacterial diseases
CPT/HCPCS: 87081; U0002; 87635

== ENCOUNTER 2020-01-17 08:32 | Day surgery (SDC) | payer MEDICARE, OTHER ==
[~2020-01-17] VITALS: Ht 172 cm; Wt 137.3 kg
[2020-01-17] VITALS (12 sets, daily range): BP systolic 88–181; BP diastolic 40–91
[~2020-01-17 08:32] MED LIST changes: +CHOL10007 PO; +CLINDAMYCIN 600 MG/50 ML IVPB 50 ML IV ONE; +GARL10002 PO; +HYDR25TA4 PO; +IBUP-1773 PO; +MONT10TA26 PO; +MULT-985 PO; +MV-M1TAB38 PO; +NFNEB10T PO; +SENN-175 PO
--- NOTE | 2020-01-17 08:43 | Progress Note-Pre Operative ---
Pre-Operative Progress Note H&P Reviewed The H&P was reviewed, patient examined and no changes noted. Date Seen by Provider: Jan 17, 2020 Time Seen by Provider: 08:42 Date H&P Reviewed: Jan 17, 2020 Time H&P Reviewed: 08:42 Pre-Operative Diagnosis: symptomatic cholelithiasis LISA JAMISON DO Jan 17, 2020 08:43
[2020-01-17] MEDS ORDERED: CATHETER FLUSH 10 ML SYR IV PRN (08:45)
[2020-01-17] MEDS: LACTATED RINGERS 1,000 ML IV PRN ×2 (08:50→10:12)
[2020-01-17] MEDS ORDERED: ONDANSETRON 4 MG/2 ML (SDV) Z0FRAN ONE (08:58)
[2020-01-17] MEDS ORDERED: MIDAZOLAM 2 MG/2 ML (VERSED) VIAL ONE (08:58)
[2020-01-17] MEDS ORDERED: DEXAMETHASONE 10 MG/ML (DECADRON) 1 ML VIAL ONE (08:58)
[2020-01-17] MEDS ORDERED: fentaNYL INJECTION 100 MCG/2 ML AMP ONE (08:58)
[2020-01-17] MEDS ORDERED: BUP/EPI 0.5% 1:200,000 (SENSORCAINE) 30 ML VIAL ONE (08:58)
[2020-01-17] MEDS ORDERED: IOPAMIDOL 61% 30 ML (ISOVUE 300) VIAL ONE (08:58)
[2020-01-17] MEDS ORDERED: ROCURONIUM 10 MG/ML 5 ML SYRINGE IV ONE (09:05)
[2020-01-17] MEDS ORDERED: proPOfol 200 MG/20 ML (DIPRIVAN) VIAL IV ONE ×2 (09:05→10:19)
[2020-01-17] MEDS ORDERED: SEVOFLURANE (ULTANE) 15 ML INHAL SOLN ONE ×3 (09:05→10:32)
--- OUTSIDE RECORDS SUMMARY | 2020-01-17 09:06 | XMS REPORT | Continuity of Care Document ---
Author Organization Unknown Address Unknown Phone Unavailable Allergies Active Description Code Type Severity Reaction Onset Reported/Identified Relationship to Patient Clinical Status Yes ciprofloxacin [id number] Steven g Allergy Unknown N/A 08/02/2018 Yes levofloxacin [id number] Drug Allergy Unknown N/A 08/02/2018 Yes losartan [id number] Drug Allergy Unknown N/A 08/02/2018 Yes sulfamethoxazole [id number] Drug Allergy Unknown N/A 08/02/2018 Yes trimethoprim [id number] Drug Allergy Unknown N/A 08/02/2018 Yes ciprofloxacin [id number] Steven g Allergy Severe CHEST PAIN 01/15/2020 Yes amoxicillin [id number] Drug Aller gy Unknown N/A 01/15/2020 Yes atenolol [id number] Drug Allergy Unknown N/A 01/15/2020 Yes atorvastatin [id number] Drug Allergy Unknown N/A 01/15/2020 Yes lisinopril [id number] Drug Allerg y Unknown N/A 01/15/2020 Yes moxifloxacin [id number] Drug Allergy Unknown UNSURE OF REACT 01/15/2020 Medications There is no data. 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 08/02/2018 KIRBY CARL Ot Z88.0 ALLERGY STATUS TO PENICILLIN 08/02/2018 MUNA PA, KIRBY L Ot Z88.6 ALLERGY STATUS TO ANALGESIC AGENT STATUS 08/02/2018 KIRBY CARL Ot Z90.710 ACQUIRED ABSENCE OF BOTH CERVIX AND UTER 08/04/2018 KIRBY CARL Ot E03.9 HYPOTHYROIDISM, UNSPECIFIED 08/04/2018 KIRBY CARL Ot J10.1 FLU DUE TO OTH IDENT INFLUENZA VIRUS W O 08/04/2018 KIRBY CARL Ot J45.909 UNSPECIFIED ASTHMA, UNCOMPLICATED 08/04/2018 KIRBY CARL Ot R 05 COUGH 08/04/2018 KIRBY CARL Ot Z79.51 SENIOR CARE (CURRENT) USE OF INHALED STERO 08/04/2018 KIRBY CARL Ot 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 08/04/2018 KIRBY [...] 05 COUGH 08/08/2018 KIRBY CARL Ot 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 08/08/2018 KIRBY CARL Ot 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 08/08/2018 KIRBY CARL Ot Z88.0 ALLERGY STATUS TO PENICILLIN 08/08/2018 KIRBY CARL Ot Z88.6 ALLERGY STATUS TO ANALGESIC AGENT STATUS 08/08/2018 KIRBY CARL Ot Z90.710 ACQUIRED ABSENCE OF BOTH CERVIX AND UTER 10/10/2019 W J06.0 Acut e laryngopharyngitis Anna Horne 10/10/2019 W J30.89 Oth er allergic rhinitis Anna Horne 10/18/2019 W J06.0 Acut e laryngopharyngitis Anna Horne 10/18/2019 W J30.89 Oth er allergic rhinitis Anna Horne 10/30/2019 W I10 Essent ial (primary) hypertension Irma Solis 11/07/2019 W I10 Essent ial (primary) hypertension Irma Solis 11/22/2019 W I10 Essent ial (primary) hypertension Anna Horne 11/22/2019 W R00.1 John ycardia with 51-60 beats per minute Anna Horne 11/23/2019 W I10 Essent ial (primary) hypertension Anna Horne 11/23/2019 W R00.1 John ycardia with 51-60 beats per minute Anna Horne 12/15/2019 W J01.80 Oth er acute sinusitis Ovidio Delmis 12/15/2019 W R05 Cough Delmis Cheek 12/17/2019 GYPSY BOWENS APRN Ot J12 .9 VIRAL PNEUMONIA, UNSPECIFIED 12/17/2019 GYPSY BOWENS APRN Ot J45.909 UNSPECIFIED ASTHMA, UNCOMPLICATED 12/17/2019 GYPSY BOWENS APRN Ot R06.02 SHORTNESS OF BREATH 12/17/2019 GYPSY BOWESN APRN Ot R79 .1 ABNORMAL COAGULATION PROFILE 12/17/2019 GYPSY BOWENS APRN Ot Z20.828 CONTACT W AND EXPOSURE TO OTH VIRAL COMM 12/17/2019 GYPSY BOWENS APRN Ot Z79.52 SENIOR CARE (CURRENT) USE OF SYSTEMIC STER 12/17/2019 GYPSY BOWENS APRN Ot Z88 .1 ALLERGY STATUS TO OTHER ANTIBIOTIC AGENT 12/17/2019 GYPSY BOWENS APRN Ot Z88 .2 ALLERGY STATUS TO SULFONAMIDES STATUS 12/17/2019 GYPSY BOWENS APRN Ot Z88 .8 ALLERGY STATUS TO OTH DRUG/MEDS/BIOL SUB 12/18/2019 GYPSY BOWENS APRN Ot M79.605 PAIN IN LEFT LEG 12/18/2019 GYPSY BOWENS APRN Ot M79.605 PAIN IN LEFT LEG 12/18/2019 W J30.89 Oth er allergic rhinitis Irma Solis 12/18/2019 W J01.80 Oth er acute sinusitis Delmis Cheek 12/18/2019 W R05 Cough Cheek, Delmis 12/19/2019 GYPSY BOWENS MANAGER RELATIONSHIP Ot M79.605 PAIN IN LEFT LEG 12/19/2019 GYPSY BOWENS MANAGER RELATIONSHIP Ot R79.89 OTHER SPECIFIED ABNORMAL FINDINGS OF BLO 12/20/2019 GYPSY BOWENS MANAGER RELATIONSHIP Ot J12 .9 VIRAL PNEUMONIA, UNSPECIFIED 12/20/2019 GYPSY BOWENS MANAGER RELATIONSHIP Ot J45.909 UNSPECIFIED ASTHMA, UNCOMPLICATED 12/20/2019 GYPSY BOWENS MANAGER RELATIONSHIP Ot R06.02 SHORTNESS OF BREATH 12/20/2019 GYPSY BOWENS APRN Ot R79 .1 ABNORMAL COAGULATION PROFILE 12/20/2019 GYPSY BOWENS APRN Ot Z20.828 CONTACT W AND EXPOSURE TO OTH VIRAL COMM 12/20/2019 GYPSY BOWENS APRN Ot Z79.52 SENIOR CARE (CURRENT) USE OF SYSTEMIC STER 12/20/2019 GYPSY BOWENS MANAGER RELATIONSHIP Ot Z88 .1 ALLERGY STATUS TO OTHER ANTIBIOTIC AGENT 12/20/2019 GYPSY BOWENS APRN Ot Z88 .2 ALLERGY STATUS TO SULFONAMIDES STATUS 12/20/2019 GYPSY BOWENS MANAGER RELATIONSHIP Ot Z88 .8 ALLERGY STATUS TO OT DRUG/MEDS/BIOL SUB 12/28/2019 MAYA FORD, IRMA Squires Ot R06.02 SHORTNESS OF BREATH 12/28/2019 MAYA FORD, IRMA Squires Ot R50.9 FEVER, UNSPECIFIED 12/29/2019 MAYA FORD, IRMA Squires Ot R06.02 SHORTNESS OF BREATH 12/29/2019 MAYA FORD, IRMA Squires Ot R50.9 FEVER, UNSPECIFIED 01/01/2020 W J20.9 Acut e bronchitis Cheek, Delmis 01/01/2020 W R05 Cough Cheek, Delmis 01/01/2020 W R06.02 Mony rtness of breath Cheek, Delmis 01/01/2020 W J20.9 Acut e bronchitis Cheek, Delmis 01/01/2020 W R05 Cough Cheek, Delmis 01/01/2020 W R06.02 Mony rtness of breath Cheek, Delmis 01/03/2020 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 Results Test Result Range Influenza virus A and B antigen detectio n - 08/02/18 15:24 CALL POSITIVES (F1 HELP) [facility] FLU RESULT POSITIVE FOR INFLUENZA A ANT IGEN, NEG FOR B ANTIGEN, BY [facility] Streptococcus pyogenes antigen detection - 12/15/19 13:45 Streptococcus pyogenes antigen detection NEGATIVE NEGATIVE Influenza virus A and B antigen detectio n - 12/15/19 13:45 FLU RESULT NEGATIVE FOR INFLUENZA A AND B ANTIGENS BY [facility] Bacterial throat culture - 12/15/19 13:4 5 Bacterial throat culture [facility] Coronavirus SARS-CoV-2 SO 2019 - 0 13:45 Coronavirus Ab [Units/volume] in Serum Negative Negative Complete blood count (CBC) with automate d white blood cell (WBC) differential - 12/17/19 20:20 Blood leukocytes automated count (number/volume) 9.6 10*3/uL 4.3-11.0 Blood erythrocytes automated count (number/volume) 4.45 10*6/uL 4.35-5.85 Venous blood hemoglobin measurement (mass/volume) 12.2 g/dL 11.5-16.0 Blood hematocrit (volume fraction) 38 % 35-52 Automated erythrocyte mean corpuscular volume 85 [ foz_us] 80-99 Automated erythrocyte mean corpuscular h emoglobin (mass per erythrocyte) 27 pg 25-34 Automated erythrocyte mean corpuscular h emoglobin concentration measurement (mass/volume) 32 g/dL 32-36 Automated erythrocyte distribution width ratio 17. 5 % 10.0- 14.5 Automated blood platelet count (count/volume) 349 10*3/uL 130-400 Automated blood platelet mean volume measurement 9.6 [foz_us] 7.4-10.4 Automated blood neutrophils/100 leukocytes 60 % 42-75 Automated blood lymphocytes/100 leukocytes 28 % 12-44 Blood monocytes/100 leukocytes 9 % 0-12 Automated blood eosinophils/100 leukocytes 3 % 0-10 Automated blood basophils/100 leukocytes 1 % 0-10 Blood neutrophils automated count (number/volume) 5.7 10*3 1.8-7.8 Blood lymphocytes automated count (number/volume) 2.7 10*3 1.0-4.0 Blood monocytes automated count (number/volume) 0. 9 10*3 0.0-1.0 Automated eosinophil count 0.2 10*3/uL 0 .0-0.3 Automated blood basophil count (count/volume) 0.1 10*3/uL 0.0-0.1 Comprehensive metabolic panel - 12/17/19 20:20 Serum or plasma sodium measurement (moles/volume) 143 mmol/L 135-145 Serum or plasma potassium measurement (moles/volume) 3.6 mmol/L 3.6-5.0 Serum or plasma chloride measurement (moles/volume) 104 mmol/L 98-107 Carbon dioxide 26 mmol/L 21-32 Serum or plasma anion gap determination (moles/volume) 13 mmol/L 5-14 Serum or plasma urea nitrogen measurement (mass/volume ) 11 mg/dL 7-18 Serum or plasma creatinine measurement (mass/volume) 0.83 mg/dL 0.60-1.30 Serum or plasma urea nitrogen/creatinine mass ratio 13 NRG Serum or plasma creatinine measurement w ith calculation of estimated glomerular filtration rate > NRG Serum or plasma glucose measurement (mass/volume) 95 mg/dL 70-105 Serum or plasma calcium measurement (mass/volume) 10.1 mg/dL 8.5-10.1 Serum or plasma total bilirubin measurement (mass/volu me) 0.3 mg/dL 0.1-1.0 Serum or plasma alkaline phosphatase dee dee surement (enzymatic activity/volume) 104 U/L 40-136 Serum or plasma aspartate aminotransfera se measurement (enzymatic activity/volume) 30 U/L 5-34 Serum or plasma alanine aminotransferase measurement (enzymatic activity/volume) 33 U/L 0-55 Serum or plasma protein measurement (mass/volume) 7.7 g/dL 6.4-8.2 Serum or plasma albumin measurement (mass/volume) 4.4 g/dL 3.2-4.5 CALCIUM CORRECTED 9.8 mg/dL 8.5-10.1 Serum or plasma C reactive protein measu rement (mass/volume) - 12/17/19 20:20 Serum or plasma C reactive protein measurement (mass/v olume) 1.87 mg/dL 0.00-0.50 Fibrin D-dimer FEU measurement in platel et poor plasma (mass/volume) - 12/17/19 20:20 Fibrin D-dimer FEU measurement in platelet poor plasma (mass/volume) 2.35 ug/mL 0.00-0.49 Serum or plasma lithium measurement (mol es/volume) - 12/17/19 20:20 BNP PT 11.4 pg/mL <100.0 Complete blood count (CBC) with automate d white blood cell (WBC) differential - 01/01/20 12:16 Blood leukocytes automated count (number/volume) 13.4 10*3/uL 4.3-11.0 Blood erythrocytes automated count (number/volume) 4.33 10*6/uL 4.35-5.85 Venous blood hemoglobin measurement (mass/volume) 11.8 g/dL 11.5-16.0 Blood hematocrit (volume fraction) 37 % 35-52 Automated erythrocyte mean corpuscular volume 85 [ foz_us] 80-99 Automated erythrocyte mean corpuscular h emoglobin (mass per erythrocyte) 27 pg 25-34 Automated erythrocyte mean corpuscular h emoglobin concentration measurement (mass/volume) 32 g/dL 32-36 Automated erythrocyte distribution width ratio 17. 2 % 10.0- 14.5 Automated blood platelet count (count/volume) 431 10*3/uL 130-400 Automated blood platelet mean volume measurement 9.7 [foz_us] 7.4-10.4 Automated blood neutrophils/100 leukocytes 71 % 42-75 Automated blood lymphocytes/100 leukocytes 17 % 12-44 Blood monocytes/100 leukocytes 9 % 0-12 Automated blood eosinophils/100 leukocytes 3 % 0-10 Automated blood basophils/100 leukocytes 1 % 0-10 Blood neutrophils automated count (number/volume) 9.6 10*3 1.8-7.8 Blood lymphocytes automated count (number/volume) 2.3 10*3 1.0-4.0 Blood monocytes automated count (number/volume) 1. 1 10*3 0.0-1.0 Automated eosinophil count 0.4 10*3/uL 0 .0-0.3 Automated blood basophil count (count/volume) 0.1 10*3/uL 0.0-0.1 Comprehensive metabolic panel - 01/01/20 12:16 Serum or plasma sodium measurement (moles/volume) 141 mmol/L 135-145 Serum or plasma potassium measurement (moles/volume) 3.7 mmol/L 3.6-5.0 Serum or plasma chloride measurement (moles/volume) 103 mmol/L 98-107 Carbon dioxide 27 mmol/L 21-32 Serum or plasma anion gap determination (moles/volume) 11 mmol/L 5-14 Serum or plasma urea nitrogen measurement (mass/volume ) 19 mg/dL 7-18 Serum or plasma creatinine measurement (mass/volume) 0.93 mg/dL 0.60-1.30 Serum or plasma urea nitrogen/creatinine mass ratio 20 NRG Serum or plasma creatinine measurement w ith calculation of estimated glomerular filtration rate 60 NRG Serum or plasma glucose measurement (mass/volume) 98 mg/dL 70-105 Serum or plasma calcium measurement (mass/volume) 9.8 mg/dL 8.5-10.1 Serum or plasma total bilirubin measurement (mass/volu me) 0.4 mg/dL 0.1-1.0 Serum or plasma alkaline phosphatase dee dee surement (enzymatic activity/volume) 99 U/L 40-136 Serum or plasma aspartate aminotransfera se measurement (enzymatic activity/volume) 16 U/L 5-34 Serum or plasma alanine aminotransferase measurement (enzymatic activity/volume) 26 U/L 0-55 Serum or plasma protein measurement (mass/volume) 7.1 g/dL 6.4-8.2 Serum or plasma albumin measurement (mass/volume) 4.1 g/dL 3.2-4.5 CALCIUM CORRECTED 9.7 mg/dL 8.5-10.1 Fibrin D-dimer FEU measurement in platel et poor plasma (mass/volume) - 01/01/20 12:16 Fibrin D-dimer FEU measurement in platelet poor plasma (mass/volume) 1.36 ug/mL 0.00-0.49 Serum or plasma lithium measurement (mol es/volume) - 01/01/20 12:16 BNP PT < 10.0 <100.0 Coronavirus SARS-CoV-2 SO 2019 - 0 08:00 Coronavirus Ab [Units/volume] in Serum Negative Negative Methicillin resistant Staphylococcus aur eus (MRSA) screening culture - 01/15/20 09:50 Methicillin resistant Staphylococcus aureus (MRSA) scr eening culture NEG NRG Encounters ACCT No. Visit Date/Time Discharge Status Pt. Type Provider Facility Loc./Unit Complaint [id number] 02/15/2018 16:03:27 02/15/2018 23:59:5 9 CLS Outpatient [id number] 01/15/2020 05:43:00 020 10:08:00 DIS Outpatient LISA JAMISON DO [facility] PREOP SYMPTOMATIC CHOLELITHIA SIS [id number] 01/01/2020 11:49:00 23:59:59 CLS Outpatient DELMIS CHEEK [facility] RAD SOB [id number] 12/18/2019 11:48:00 23:59:59 CLS Outpatient GYPSY BOWENS APRN [facility] RAD ELEVATED D DIMER,LT TG F PAIN [id number] 12/17/2019 19:39:00 020 22:30:00 DIS Emergency GYPSY BOWENS APRN [facility] ER SOB [id number] 12/15/2019 14:30:00 23:59:59 CLS Outpatient IRMA SOLIS MD [facility] LABNPT [id number] 08/02/2018 14:58:00 019 17:32:00 DIS Emergency KIRBY CARL [facility] ER FLU SYMPTOMS [id number] 01/17/2020 09:55:00 P EN Preadmit LISA JAMISON DO [facility] SDC SYMPTOMATIC CHOLELITHIASIS
[2020-01-17] MEDS ORDERED: ALBUTEROL SULFATE NEB (09:56)
--- NOTE | 2020-01-17 10:24 | Progress Note-Post Operative ---
Post-Operative Progess Note Surgeon (s)/Dairy Processing Supervisor (s) Surgeon LISA JAMISON DO Dairy Processing Supervisor: Dr. Dangelo to assist in retraction dissection and closure. Pre-Operative Diagnosis symptomatic cholelithiasis Post-Operative Diagnosis same Procedure & Operative Findings Date of Procedure 01/17/20 Procedure Performed/Findings PROCEDURE: Laparoscopic cholecystectomy with attempted intraoperative cholangiogram. INDICATIONS: 64 year old female with gallstones and symptoms consistent with gallbladder disease. Patient understands risks and benefits and wishes to proceed. Consent signed and on the chart. COMPLICATIONS: None. PROCEDURE: The patient was taken to the operating suite and was prepped and draped in sterile fashion. A surgical pause was performed. Just superior to the umbilicus, a 12 mm incision was made. Dissection was taken down to the fascia, which was then scored and grasped with a Julia and the abdomen was then entered. A 0 Vicryl suture was placed in a jrzmeh-[id number] fashion and a Marion trocar was placed and secured. Pneumoperitoneum was achieved. A 5mm trochar place in the subxyphoid and 2 in the right upper quadrant. The gallbladder was then grasped and elevated. Multiple adhesions had to be takend down with blunt and cautery dissection to the gallbladder. The cystic duct, and cystic artery were then dissected out. Clip was placed on the distal portion of the cystic duct which was then partially transected. An arrow catheter was attempted to be inserted into the duct. The duct was had an extremely small diameter and catheter unable to be inserted. The cholangiogram was then aborted. The catheter removed. Clips were placed on proximal portion of the cystic duct and then the duct was then transected. Clips were placed along the proximal and distal portion of the cystic artery which was then transected. Hook cautery was used to dissect the gallbladder from the gallbladder fossa achieving hemostasis. The gallbladder was placed in an Endobag and removed through the 12 mm trocar site. The abdomen was then reinspected. Copious amounts of irrigation were used to irrigate the abdomen and there were no signs of active bleeding. Hemostasis had been achieved. The 12 mm fascial defect was then closed with 0 Vicryl suture that had been placed in a cwcarl-[id number]-[id number] fashion. The abdomen was then desufflated, the trocars were removed. The abdomen was then washed and dried. The skin was then closed using 4-0 Monocryl in a subcuticular fashion. The abdomen was washed and dried and Skin Affix was place over incisions. Patient tolerated the procedure well without any complications and was taken to the recovery room in stable condition. Anesthesia Type general Estimated Blood Loss Estimated blood loss (mL): minimal Specimens/Packing Specimens Removed gallbladder LISA JAMISON DO Jan 17, 2020 10:24
[2020-01-17] MEDS ORDERED: DOCU-143 PO (10:25)
[2020-01-17] MEDS ORDERED: HYDR-4226 PO (10:25)
--- NOTE | 2020-01-17 10:26 | Discharge Inst-Simple/Standard ---
Discharge Inst-Standard Discharge Medications New, Converted or Re-Newed RX: RX on Chart Patient Instructions/Follow Up Plan of Care/Instructions/FU: 2 weeks Shin Activity as Tolerated: No Discharge Diet: Regular Diet Other Inst to Patient Follow up Appt: Make appointment for 2 weeks. Instructions: No lifting greater than 10 pounds. No strenuous activity. May shower in 24 hours, no tub bath or soaking. Use incentive spirometer at home as directed. No Smoking Skin/Wound Care: You have special glue over incision, it will fall off on it's own. Symptoms to Report: Appetite Changes, Extremity Discoloration, Numbness/Tingling, Swelling Increased, Bleeding Excessive, Eyesight Changes, Pain Increased, Urine Color Change, Constipation(Persistent), Fever over 101 degree F, Pain/Pressure in ches t, Urinating Difficulty, Cough Up/Vomit Blood, Heart Beat Irreg/Pounding, Pain/Pressure in jaw, Vaginal Bleeding Increase, Cramps in feet or legs, Lightheadedness, Pain/Pressure in shoulder, Diarrhea(Persistent), Memory Changes Suddenly, Questions/Concerns, Weight gain consecutive days, Dizziness/Fainting, Nausea/Vomiting, Shortness of Breath, Weight gain over 2 pounds. If eyes or skin turn yellow notify physician. If questions or concerns contact your physician Or seek help at emergency department. LISA JAMISON DO Jan 17, 2020 10:26
--- NOTE | 2020-01-17 10:37 | Anesthesia-General Post-Op ---
General Patient Condition Mental Status/LOC: Same as Preop Cardiovascular: Satisfactory Nausea/Vomiting: Absent Respiratory: Satisfactory Pain: Controlled Complications: Absent Post Op Complications Complications None Follow Up Care/Instructions Patient Instructions None needed. Anesthesia/Patient Condition Patient Condition Patient is doing well, no complaints, stable vital signs, no apparent adverse anesthesia problems. No complications reported per nursing. KELVIN BERMEO CRNA Jan 17, 2020 10:37
[2020-01-17] MEDS ORDERED: morphine INJ 10 MG/ML 1ML (SYR OR VIAL) IVP ONE (10:45)
[2020-01-17] MEDS ORDERED: ONDANSETRON 4 MG/2 ML (SDV) Z0FRAN IVP PRN (10:45)
[2020-01-17] MEDS ORDERED: HYDROcodone/APAP 5 MG/325 MG (LORTAB) TAB ONE (12:14)
[2020-01-17] MEDS ORDERED: HYDROcodone/APAP 5 MG/325 MG (LORTAB) TAB PO ONE (12:15)
--- NOTE | 2020-01-17 12:17 | NUR ---
LORTAB 5/325 MG, ONE TAB, GIVEN PO FOR C/P RIGHT UPPER QUAD ABDOMINAL PAIN RATED 5.
--- NOTE | 2020-01-17 13:00 | NUR ---
PAIN RATED 3 AFTER PAIN MEDICATION GIVEN. TAKING PO FLUIDS WITHOUT PROBLEM. ON ROOM AIR WITH SAO2 96% NO CHANGE IN SITE ASSESSMENT. STATES SHE IS READY FOR DISMISSAL.
== END 2020-01-17 13:40 | disposition home or self-care (01) ==
LOC: SDC 08:32
PROVIDERS: ATTEND Surgery
DX: K80.10 Calculus of gallbladder with chronic cholecystitis without obstruction (principal); I10 Essential (primary) hypertension; G47.33 Obstructive sleep apnea (adult) (pediatric); J45.909 Unspecified asthma, uncomplicated; K21.9 Gastro-esophageal reflux disease without esophagitis; E03.9 Hypothyroidism, unspecified; M10.9 Gout, unspecified; E66.01 Morbid (severe) obesity due to excess calories; Z88.8 Allergy status to other drugs, medicaments and biological substances; Z79.890 Hormone replacement therapy; Z79.82 Long term (current) use of aspirin; Z79.899 Other long term (current) drug therapy; Z86.73 Personal history of transient ischemic attack (TIA), and cerebral infarction without residual deficits; Z88.1 Allergy status to other antibiotic agents; Z88.2 Allergy status to sulfonamides; Z68.42 Body mass index [BMI] 45.0-49.9, adult
CPT/HCPCS: 94664

== ENCOUNTER → 2020-02-12 | Outpatient (CLI) | payer MEDICARE, OTHER ==
[~2020-02-12] MED LIST changes: +ALBUTEROL SULFATE NEB; -CLINDAMYCIN 600 MG/50 ML IVPB 50 ML IV ONE; +DOCU-143 PO; +HYDR-4226 PO
--- NOTE | 2020-02-12 15:19 | Diagnostic Imaging Report ---
PROCEDURE: US right lower extremity venous. TECHNIQUE: Multiple real-time grayscale images were obtained over the right lower extremity in various projections. Additional spectral analysis and color Doppler duplex images were also obtained. INDICATION: Right calf pain and swelling. There is no evidence of right lower extremity DVT. Right lower extremity deep venous system shows normal compressibility with normal response to augmentation Valsalva. No fluid collection or mass is detected. IMPRESSION: No evidence of right lower extremity DVT. Dictated by: Dictated on workstation # [id number]
== END ==
LOC: RAD 14:05
PROVIDERS: ATTEND Nurse Practitioner Family
DX: R22.41 Localized swelling, mass and lump, right lower limb (principal)

== ENCOUNTER 2020-02-17 22:49 | Observation (INO) | payer MEDICARE, OTHER ==
[~2020-02-17] VITALS: Ht 172.7 cm; Wt 136.9 kg
[2020-02-17 23:45] LABS: BILIRUBIN,URINE NEGATIVE (NEGATIVE); CLARITY,URINE CLEAR; COLOR,URINE YELLOW; GLUCOSE, URINE (UA) NEGATIVE (NEGATIVE); KETONES,URINE NEGATIVE (NEGATIVE); LEUKOCYTE ESTERASE ,URINE 1+ (NEGATIVE); NITRITE,URINE NEGATIVE (NEGATIVE); PH,URINE 5.5 (5-9); PROTEIN,URINE TRACE (NEGATIVE)
[2020-02-17 23:45] LABS: BASOPHILS # (AUTO) 0.1 10^3/uL (0.0-0.1); BASOPHILS % (AUTO) 1 % (0-10); EOSINOPHILS # (AUTO) 0.4 10^3/uL (0.0-0.3); EOSINOPHILS % (AUTO) 4 % (0-10); HEMATOCRIT 32 % (35-52); HEMOGLOBIN 9.6 G/DL (11.5-16.0); LYMPHOCYTES # (AUTO) 2.8 X 10^3 (1.0-4.0); LYMPHOCYTES % (AUTO) 26 % (12-44); MEAN CORPUSCULAR HEMOGLOBIN 25 PG (25-34); MEAN CORPUSCULAR HGB CONC 30 G/DL (32-36); MEAN CORPUSCULAR VOLUME 83 FL (80-99); MEAN PLATELET VOLUME 9.6 FL (7.4-10.4); MONOCYTES # (AUTO) 1.1 X 10^3 (0.0-1.0); MONOCYTES % (AUTO) 10 % (0-12); NEUTROPHILS # (AUTO) 6.4 X 10^3 (1.8-7.8); NEUTROPHILS % (AUTO) 60 % (42-75); PLATELET COUNT 370 10^3/uL (130-400); RED CELL DISTRIBUTION WIDTH 17.2 % (10.0-14.5); WHITE BLOOD COUNT 10.6 10^3/uL (4.3-11.0)
--- NOTE | 2020-02-17 23:45 | NUR ---
SWABBED FOR COVID
[2020-02-17 23:54] LABS: WBC,URINE 25-50 /HPF
[2020-02-17 23:55] LABS: BACTERIA,URINE TRACE /HPF; SQUAMOUS EPITHELIAL CELL,UR 25-50 /HPF
[2020-02-18 00:06] LABS: ALBUMIN 3.8 GM/DL (3.2-4.5); CHLORIDE 105 MMOL/L (98-107); POTASSIUM 3.5 MMOL/L (3.6-5.0); SODIUM 140 MMOL/L (135-145)
[2020-02-18 00:07] LABS: CALCIUM 9.7 MG/DL (8.5-10.1)
[2020-02-18 00:08] LABS: GLUCOSE 145 MG/DL (70-105)
[2020-02-18 00:09] LABS: TOTAL PROTEIN 6.9 GM/DL (6.4-8.2)
[2020-02-18 00:10] LABS: BILIRUBIN,TOTAL 0.3 MG/DL (0.1-1.0); CARBON DIOXIDE 22 MMOL/L (21-32)
[2020-02-18] MEDS ORDERED: NS IV 500 ML 500 ML IV ONE ×2 (00:10→02:42)
[2020-02-18 00:12] LABS: ALKALINE PHOSPHATASE 101 U/L (40-136); CREATININE SERUM 0.85 MG/DL (0.60-1.30); FIBRIN DEGRADATION PRODUCTS 3.67 UG/ML (0.00-0.49); GFR ESTIMATED > 60; PROTHROMBIN TIME PATIENT 13.4 SEC (12.2-14.7)
[2020-02-18 00:13] LABS: BUN/CREATININE RATIO 18
[2020-02-18 00:15] LABS: ALANINE AMINOTRANSFERASE 17 U/L (0-55)
--- NOTE | 2020-02-18 00:22 | ED General ---
General Chief Complaint: Respiratory Problems Stated Complaint: SOB,FEVER,COUGH Nursing Triage Note: started being treated for cellulitis on wednesday with doxycycline, developed a fever on wednesday of 99.-99.8 today temp max is 100.0, c/o nausea, and shortness of breath. took 1000mg of tylenol at 2100. Nursing Sepsis Screen: Possible Sepsis Risk Source of Information: Patient Exam Limitations: No Limitations History of Present Illness Date Seen by Provider: Feb 18, 2020 Time Seen by Provider: 00:04 Initial Comments Here with report of cough and shortness of breath as well as fever with temperature of 100F today. Complains of nausea without vomiting. Has been treated and evaluated for right lower extremity cellulitis. She is currently on doxycycline. She believes she may be having side effects from that. We'll side effects include what she presents with as well as vaginal discharge. She had ultrasound evaluation of her right lower extremity earlier this week which was negative for DVT. Symptoms have persisted despite treatment. She was supposed to follow-up with her doctor on Wednesday for further evaluation that because of the shortness of breath fever increased tonight, she presented to the emergency department. She did have COVID testing due to preop for surgery for cholecystectomy. She also had viral pneumonia 2 months ago that was also not COVID-19 apparently. States that she stayed at home and does not go out. Her d fatumahter lives with her and does the parents. She lives with her as well but does not leave the house. She does not believe that she's had contact with COVID-19. Timing/Duration: 1 Week, Getting Worse Severity: Moderate Associated Systoms: No Chest Pain; Cough, Fever/Chills, Nausea/Vomiting, Shortness of Air; No Weakness Allergies and Home Medications Allergies Coded Allergies: ciprofloxacin (Verified Allergy, Severe, CHEST PAIN, 02/18/20) amoxicillin (Verified Allergy, Unknown, 02/18/20) atenolol (Verified Allergy, Unknown, 02/18/20) atorvastatin (Verified Allergy, Unknown, 02/18/20) levofloxacin (Verified Allergy, Unknown, 02/18/20) lisinopril (Verified Allergy, Unknown, 02/18/20) losartan (Verified Allergy, Unknown, 02/18/20) moxifloxacin (Verified Allergy, Unknown, UNSURE OF REACTION, 02/18/20) sulfamethoxazole (Verified Allergy, Unknown, 02/18/20) trimethoprim (Verified Allergy, Unknown, 02/18/20) Home Medications Cholecalciferol (Vitamin D3) 25 Mcg Capsule, 25 MCG PO DAILY, (Reported) Docusate Sodium 100 Mg Capsule, 100 MG PO BID Prescribed by: LISA JAMISON on 01/17/20 1025 Garlic 1,000 Mg Capsule, 1,000 MG PO DAILY, (Reported) Hydrochlorothiazide 25 Mg Tablet, 25 MG PO DAILY, (Reported) Hydrocodone/Acetaminophen 1 Each Tablet, 1 TAB PO Q4-6HR Prescribed by: LISA JAMISON on 01/17/20 1025 Ibuprofen 600 Mg Tablet, 600 MG PO Q6H PRN for PAIN-MILD, (Reported) Montelukast Sodium 10 Mg Tablet, 10 MG PO DAILY, (Reported) Multivitamin with Minerals 1 Each Tablet, 1 EACH PO BID, (Reported) Mv-Mn/FA/Vit K/Lycop/Lut/Zeaxa 1 Each Tablet, 1 EACH PO DAILY, (Reported) Nebivolol HCl 10 Mg Tab, 10 MG PO DAILY, (Reported) [place]side 3 Polyunsat Fatty Acids 1,000 Mg Cap, 4,000 MG PO DAILY, (Reported) Sennosides/Docusate Sodium 1 Each Tablet, 1 EACH PO DAILY, (Reported) [Albuterol Sulfate] Unknown Strength , Unknown Dose NEB DAILY, (Reported) Patient Home Medication List Home Medication List Reviewed: Yes Review of Systems Review of Systems Constitutional: see HPI, chills, fever, weakness EENTM: no symptoms reported Respiratory: see HPI Cardiovascular: No chest pain, No edema Gastrointestinal: No abdominal pain; nausea; No vomiting Genitourinary: dysuria, frequency : No Musculoskeletal: No back pain; muscle pain Skin: change in color (right lower extremity near the ankle and foot as well as medial aspect of the calf); No lesions Psychiatric/Neurological: No Symptoms Reported All Other Systems Reviewed Negative Unless Noted: Yes Past Ubqoyak-Mcoibl-Xhhdmr Hx Past Med/Social Hx: Reviewed Nursing Past Med/Soc Hx Patient Social History Alcohol Use: Denies Use Recreational Drug Use: No 2nd Hand Smoke Exposure: Yes Recent Foreign Travel: No Contact w/Someone Who Travel: No Recent Infectious Disease Expo: No Recent Hopitalizations: No Physical Abuse: No Sexual Abuse: No Mistreated: No Fear: No Immunizations Up To Date Tetanus Booster (TDap): Less than 5yrs PED Vaccines UTD: Yes Seasonal Allergies Seasonal Allergies: Yes Past Medical History Surgeries: Yes Gallbladder, Hysterectomy Respiratory: Yes (RECENT PNEUMONIA-12/2019) Asthma, Sleep Apnea Currently Using CPAP: Yes Currently Using BIPAP: No Cardiac: Yes Hypertension Neurological: Yes (2009) Stroke [employer] History: Hysterectomy Sexually Transmitted Disease: No HIV/AIDS: No Genitourinary: Yes UTI-Chronic Gastrointestinal: No Gastroesophageal Reflux, Chronic Constipation, Gall Bladder Disease Musculoskeletal: Yes Gout Endocrine: Yes Hypothyroidsim HEENT: Yes (READING GLASSES, DENTURES) Loss of Vision: Denies Hearing Impairment: Denies Cancer: No Psychosocial: No Integumentary: No Blood Disorders: Yes (HX ANEMIA) Adverse Reaction/Blood Tranf: No (N/A) Family Medical History Reviewed Nursing Family Hx No Pertinent Family Hx Physical Exam-Suspected Sepsis Physical Exam Vital Signs Vital Signs - First Documented 02/17/20 23:30 Temp 36.8 Pulse 75 Resp 22 B/P (MAP) 138/72 (94) Pulse Ox 97 Capillary Refill : Less Than 3 Seconds Blood Pressure Mean: 94 Height, Weight, BMI Height: 5'8.00" Weight: 282lbs. oz. 127.460735yg; 46.00 BMI Method:Stated General Appearance: No Apparent Distress, WD/WN HEENT: PERRL/EOMI, Pharynx Normal Neck: Non Tender, Supple Respiratory: Lungs Clear, Normal Breath Sounds Cardiovascular: Regular Rate, Rhythm, No Murmur Gastrointestinal: Non Tender, Soft Back: Normal Inspection, No CVA Tenderness, No Vertebral Tenderness Extremity: Normal Range of Motion (and), Calf Tenderness (mild, right sided with erythema) Neurologic/Psychiatric: Oriented x3, No Motor/Sensory Deficits Skin: warm/dry, other (mild erythema to the proximal fluids and distal lower leg on the right side medial aspect) Focused Exam Lactate Level 02/17/20 23:30: Lactic Acid Level 2.81*H 02/18/20 01:30: Lactic Acid Level 1.82 Lactic Acid Level Laboratory Tests Test 02/17/20 23:30 02/18/20 01:30 Lactic Acid Level 2.81 MMOL/L (0.50-2.00) *H 1.82 MMOL/L (0.50-2.00) Progress/Results/Core Measures Suspected Sepsis Recent Fever Within 48 Hours: Yes Infection Criteria Present: Documented Infection New/Unexplained Altered Menta: No Sepsis Screen: Possible Sepsis Risk SIRS Temperature: Pulse: 75 Respiratory Rate: 22 Laboratory Tests 02/17/20 23:30: White Blood Count 10.6 Blood Pressure 138 /72 Mean: 94 02/17/20 23:30: Lactic Acid Level 2.81*H 02/18/20 01:30: Lactic Acid Level 1.82 Laboratory Tests 02/17/20 23:30: Creatinine 0.85, INR Comment 1.0, Platelet Count 370, Total Bilirubin 0.3 Results/Orders Lab Results Laboratory Tests Test 02/17/20 23:10 02/17/20 23:11 02/17/20 23:30 02/18/20 00:00 Range/Units Urine Color YELLOW Urine Clarity CLEAR Urine pH 5.5 5-9 Urine Specific [place] >=1.030 1.016-1.022 Urine Protein TRACE H NEGATIVE Urine Glucose (UA) NEGATIVE NEGATIVE Urine Ketones NEGATIVE NEGATIVE Urine Nitrite NEGATIVE NEGATIVE Urine Bilirubin NEGATIVE NEGATIVE Urine Urobilinogen 0.2 < = 1.0 MG/DL Urine Leukocyte Esterase 1+ H NEGATIVE Urine RBC (Auto) NEGATIVE NEGATIVE Urine RBC NONE /HPF Urine WBC 25-50 H /HPF Urine Squamous Epithelial Cells 25-50 H /HPF Urine Crystals NONE /LPF Urine Bacteria TRACE /HPF Urine Casts NONE /LPF Urine Mucus SMALL H /LPF Urine Culture Indicated CULTURE PENDING White Blood Count 10.6 4.3-11.0 10^3/uL Red Blood Count 3.82 L 4.35-5.85 10^6/uL Hemoglobin 9.6 L 11.5-16.0 G/DL Hematocrit 32 L 35-52 % Mean Corpuscular Volume 83 80-99 FL Mean Corpuscular Hemoglobin 25 25-34 PG Mean Corpuscular Hemoglobin Concent 30 L 32-36 G/DL Red Cell Distribution Width 17.2 H 10.0-14.5 % Platelet Count 370 130-400 10^3/uL Mean Platelet Volume 9.6 7.4-10.4 FL Neutrophils (%) (Auto) 60 42-75 % Lymphocytes (%) (Auto) 26 12-44 % Monocytes (%) (Auto) 10 0-12 % Eosinophils (%) (Auto) 4 0-10 % Basophils (%) (Auto) 1 0-10 % Neutrophils # (Auto) 6.4 1.8-7.8 X 10^3 Lymphocytes # (Auto) 2.8 1.0-4.0 X 10^3 Monocytes # (Auto) 1.1 H 0.0-1.0 X 10^3 Eosinophils # (Auto) 0.4 H 0.0-0.3 10^3/uL Basophils # (Auto) 0.1 0.0-0.1 10^3/uL Erythrocyte Sedimentation Rate 51 H 0-30 MM/HR Prothrombin Time 13.4 12.2-14.7 SEC INR Comment 1.0 0.8-1.4 Activated Partial Thromboplast Time 31 24-35 SEC D-Dimer 3.67 H 0.00-0.49 UG/ML Sodium Level 140 135-145 MMOL/L Potassium Level 3.5 L 3.6-5.0 MMOL/L Chloride Level 105 98-107 MMOL/L Carbon Dioxide Level 22 21-32 MMOL/L Anion Gap 13 5-14 MMOL/L Blood Urea Nitrogen 15 7-18 MG/DL Creatinine 0.85 0.60-1.30 MG/DL Estimat Glomerular Filtration Rate > 60 BUN/Creatinine Ratio 18 Glucose Level 145 H 70-105 MG/DL Lactic Acid Level 2.81 *H 0.50-2.00 MMOL/L Calcium Level 9.7 8.5-10.1 MG/DL Corrected Calcium 9.9 8.5-10.1 MG/DL Total Bilirubin 0.3 0.1-1.0 MG/DL Aspartate Amino Transf (AST/SGOT) 17 5-34 U/L Alanine Aminotransferase (ALT/SGPT) 17 0-55 U/L Alkaline Phosphatase 101 40-136 U/L Lactate Dehydrogenase 173 125-220 U/L C-Reactive Protein High Sensitivity 4.39 H 0.00-0.50 MG/DL Total Protein 6.9 6.4-8.2 GM/DL Albumin 3.8 3.2-4.5 GM/DL Procalcitonin 0.03 <0.10 NG/ML Test 02/18/20 01:30 Range/Units Lactic Acid Level 1.82 0.50-2.00 MMOL/L My Orders Orders - DOMINIC MCCANN MD Cbc With Automated Diff (02/17/20 23:11) Comprehensive Metabolic Panel (02/17/20 23:11) Blood Culture (02/17/20 23:11) Sputum Culture (02/17/20 23:11) Urinalysis (02/17/20 23:11) Urine Culture (02/17/20 23:11) Protime With Inr (02/17/20 23:11) Partial Thromboplastin Time (02/17/20 23:11) Chest 1 View, Ap/Pa Only (02/17/20 23:11) Ed Iv/Invasive Line Start (02/17/20 23:11) Vital Signs Adult Sepsis Patie Q15M (02/17/20 23:11) O2 (02/17/20 23:11) Remove Rings In Anticipation O (02/17/20 23:11) Lactic Acid Analyzer (02/17/20 23:11) Fibrin Degradation Products (02/17/20 23:11) Procalcitonin (Pct) (02/17/20 23:11) Hs C Reactive Protein (02/17/20 23:11) Erythrocyte Sedimentation Rate (02/17/20 23:11) LDH (02/17/20 23:11) Coronavirus Sars-Cov-2 So 2019 (02/17/20 23:11) Ns Iv 500 Ml (Sodium Chloride 0.9%) (02/18/20 00:10) Ct Angio Chest W (02/18/20 01:36) Iohexol Injection (Omnipaque 350 Mg/Ml 1 (02/18/20 02:00) Received Contrast (Hold Metformin- Contr (02/18/20 02:00) Ns (Ivpb) (Sodium Chloride 0.9% Ivpb Bag (02/18/20 02:00) Covid-19 Igg Only So (02/18/20 02:06) Enoxaparin Injection (Lovenox Injection) (02/18/20 02:30) Fluconazole Tablet (Ed Only) (Diflucan T (02/18/20 02:25) Ns Iv 500 Ml (Sodium Chloride 0.9%) (02/18/20 02:42) Medications Given in ED Current Medications Medications Dose Ordered Sig/Georgie Route Start Time Stop Time Status Last Admin Dose Admin Iohexol 100 ml ONCE ONCE IV 02/18/20 02:00 02/18/20 02:01 DC 02/18/20 02:11 100 ML Sodium Chloride 100 ml ONCE ONCE IV 02/18/20 02:00 02/18/20 02:01 DC 02/18/20 02:11 80 ML Sodium Chloride 500 ml @ 0 mls/hr Q0M ONCE IV 02/18/20 00:10 02/18/20 00:11 DC 02/18/20 00:21 500 MLS/HR Vital Signs/I&O 02/17/20 23:30 Temp 36.8 Pulse 75 Resp 22 B/P (MAP) 138/72 (94) Pulse Ox 97 Capillary Refill : Less Than 3 Seconds Blood Pressure Mean: 94 Progress Note : Progress Note Seen and evaluated. IV, labs, blood cultures and lactic acid ordered. COVID-19 swab ordered. Sepsis protocol has been initiated. Normal saline 500 mL bolus. Monitor patient. 0234: Patient's d-dimer was significantly elevated. She has had elevated d-dimer for the last 2 months but this is the highest that it has been by double or triple. CT angiogram of the chest was ordered and second IV placed to handle contrast load in the left antecubital space. CT complete and does show bilateral pulmonary emboli that may be acute and/or subacute when comparing to previous films per radiologist. Patient is doing better now but I do have concerns related to prolonged course. In previous evaluation, patient was found to have viral pneumonia and had negative COVID-19 screening in November and December. She has had recent workup for right lower extremity that had negative ultrasound for DVT and she was thought to have possible cellulitis. Physical exam today is more consistent with DVT than cellulitis and patient has had no improvement from antibiotics. She does have vaginal discharge which I believe is yeast infection. I discussed the case with Dr. TREJO, patient's primary physician and she is on-call. Given the protracted course and new findings with the setting of shortness of breath, we will initiate Lovenox weight-based dosing now and admit the patient observation status. Dr. TREJO will see her in the morning and discuss appropriate continuation therapy for pulmonary embolism and decide on which anticoagulant to use after discussion with the patient. I will repeat bolus normal saline 500 mL now and continue IV fluids at 100 mL an hour to continue to flush out IV contrast to protect the kidneys. All findings and concerns were discussed with the patient and family member via phone. She agrees to admission, observation status. Diflucan 150 mg by mouth ordered and Lovenox 140 mg subcutaneous ordered. To rule out previous COVID-19 infection, we will get IgG for COVID-19 now to see if she may have had this recently. This was discussed with the patient and Dr. TREJO as well and both agree. Diagnostic Imaging Diagonstic Imaging: Xray Plain Films/CT/US/NM/MRI: chest Comments No acute findings Reviewed: Reviewed by Me Diagonstic Imaging: CT Plain Films/CT/US/NM/MRI: chest Comments Suboptimal pulmonary arterial bolus. Persistent or recurrent somewhat thin linear,'s segmental pulmonary arteries bilateral upper lobes. There is very thin linear thrombus in the right interlobar pulmonary artery. There is also non occlusive thrombus segmental blanching into subsegmental pulmonary right lower lobe. Very small nonocclusive segmental thrombus and vessel supplying the lingula. Negative for central or saddle embolus. Negative for parenchymal consolidation, pneumothorax or pleural fluid collections. Reviewed: Reviewed Night Jabari Study, Reviewed by Me, Discussed w/Radiologist Departure Communication (Admissions) Time/Spoke to Admitting Phy: 02:34 Impression Primary Impression: Bilateral pulmonary embolism Additional Impression: COVID-19 evaluation Disposition: ADMITTED INPATIENT Condition: Stable Admissions Decision to Admit Reason: Admit from ER (General) Decision to Admit/Date: Feb 18, 2020 Time/Decision to Admit Time: 02:34 Departure-Patient Inst. Referrals: IRMA TREJO MD (PCP/Family) Primary Care Physician DOMINIC MCCANN MD Feb 18, 2020 00:21
[2020-02-18 00:23] LABS: ERYTHROCYTE SEDIMENTATION RATE 51 MM/HR (0-30)
--- OUTSIDE RECORDS SUMMARY | 2020-02-18 00:54 | XMS REPORT | Continuity of Care Document ---
Author Organization Unknown Address Unknown Phone Unavailable Allergies Active Description Code Type Severity Reaction Onset Reported/Identified Relationship to Patient Clinical Status Yes ciprofloxacin [id number] Steven g Allergy Unknown N/A 08/02/2018 Yes levofloxacin [id number] Drug Allergy Unknown N/A 08/02/2018 Yes losartan [id number] Drug Allergy Unknown N/A 08/02/2018 Yes sulfamethoxazole [id number] Drug Allergy Unknown N/A 08/02/2018 Yes trimethoprim [id number] Drug Allergy Unknown N/A 08/02/2018 Yes ciprofloxacin [id number] Steven g Allergy Severe CHEST PAIN 01/15/2020 Yes amoxicillin [id number] Drug Aller gy Unknown N/A 01/15/2020 Yes atenolol [id number] Drug Allergy Unknown N/A 01/15/2020 Yes atorvastatin [id number] Drug Allergy Unknown N/A 01/15/2020 Yes lisinopril [id number] Drug Allerg y Unknown N/A 01/15/2020 Yes moxifloxacin [id number] Drug Allergy Unknown UNSURE OF REACT 01/15/2020 Medications There is no data. Problems Date Dx Coded Attending Type Code Diagnosis Diagnosed By 07/01/1007 LISA JAMISON DO Ot Z01.818 ENCOUNTER FOR OTHER PREPROCEDURAL EXAMIN 07/01/1007 LISA JAMISON DO Ot Z11. 2 ENCOUNTER FOR SCREENING FOR OTHER BACTER 07/01/1007 LISA JAMISON DO Ot Z11. 59 ENCOUNTER FOR SCREENING FOR OTHER VIRAL 08/02/2018 KIRBY CARL Ot E03.9 HYPOTHYROIDISM, UNSPECIFIED 08/02/2018 KIRBY CARL Ot J10.1 FLU DUE TO OTH IDENT INFLUENZA VIRUS W O 08/02/2018 KIRBY CARL Ot J45.909 UNSPECIFIED ASTHMA, UNCOMPLICATED 08/02/2018 KIRBY CARL Ot R 05 COUGH 08/02/2018 KIRBY CARL Ot Z79.51 GROUP HOME (CURRENT) USE OF INHALED STERO 08/02/2018 KIRBY CARL Ot Z79.52 BRANCH DIRECTOR (CURRENT) USE OF SYSTEMIC STER 08/02/2018 KIRBY CARL Ot Z88.0 ALLERGY STATUS TO PENICILLIN 08/02/2018 KIRBY CARL L Ot Z88.6 ALLERGY STATUS TO ANALGESIC AGENT STATUS 08/02/2018 KIRBY CARL Ot Z90.710 ACQUIRED ABSENCE OF BOTH CERVIX AND UTER 08/04/2018 KIRBY CARL Ot E03.9 HYPOTHYROIDISM, UNSPECIFIED 08/04/2018 KIRBY CARL Ot J10.1 FLU DUE TO OTH IDENT INFLUENZA VIRUS W O 08/04/2018 KIRBY CARL Ot J45.909 UNSPECIFIED ASTHMA, UNCOMPLICATED 08/04/2018 KIRBY CARL L Ot R 05 COUGH 08/04/2018 KIRBY CARL Ot Z79.51 BRANCH DIRECTOR (CURRENT) USE OF INHALED STERO 08/04/2018 KIRBY CARL Ot Z79.52 BRANCH DIRECTOR (CURRENT) USE OF SYSTEMIC STER 08/04/2018 KRIBY CARL Ot Z88.0 ALLERGY STATUS TO PENICILLIN 08/04/2018 KIRBY CARL Ot Z88.6 ALLERGY STATUS TO ANALGESIC AGENT STATUS 08/04/2018 KIRBY CARL Ot Z90.710 ACQUIRED ABSENCE OF BOTH CERVIX AND UTER 08/08/2018 KIRBY CARL Ot E03.9 HYPOTHYROIDISM, UNSPECIFIED 08/08/2018 KIRBY CARL Ot J10.1 FLU DUE TO OTH IDENT INFLUENZA VIRUS W O 08/08/2018 KIRBY CARL Ot J45.909 UNSPECIFIED ASTHMA, UNCOMPLICATED 08/08/2018 KIRBY CARL L Ot R 05 COUGH 08/08/2018 KIRBY CARL Ot Z79.51 GROUP HOME (CURRENT) USE OF INHALED STERO 08/08/2018 KIRBY CARL Ot Z79.52 BRANCH DIRECTOR (CURRENT) USE OF SYSTEMIC STER 08/08/2018 KIRBY CARL L Ot Z88.0 ALLERGY STATUS TO PENICILLIN 08/08/2018 KIRBY CARL L Ot Z88.6 ALLERGY STATUS TO ANALGESIC [...] 12/15/2019 W J01.80 Oth er acute sinusitis Delmis Cheek 12/15/2019 W R05 Cough Cheek, Delmis 12/17/2019 GYPSY BOWENS APRN Ot J12 .9 VIRAL PNEUMONIA, UNSPECIFIED 12/17/2019 GYPSY BOWENS APRN Ot J45.909 UNSPECIFIED ASTHMA, UNCOMPLICATED 12/17/2019 GYPSY BOWENS APRN Ot R06.02 SHORTNESS OF BREATH 12/17/2019 GYPSY BOWENS APRN Ot R79 .1 ABNORMAL COAGULATION PROFILE 12/17/2019 GYPSY BOWENS APRN Ot Z20.828 CONTACT W AND EXPOSURE TO OTH VIRAL COMM 12/17/2019 GYPSY BOWENS APRN Ot Z79.52 BRANCH DIRECTOR (CURRENT) USE OF SYSTEMIC STER 12/17/2019 GYPSY BOWENS APRN Ot Z88 .1 ALLERGY STATUS TO OTHER ANTIBIOTIC AGENT 12/17/2019 GYPSY BOWENS APRN Ot Z88 .2 ALLERGY STATUS TO SULFONAMIDES STATUS 12/17/2019 GYPSY BOWENS APRN Ot Z88 .8 ALLERGY STATUS TO OT DRUG/MEDS/BIOL SUB 12/18/2019 GYPSY BOWENS APRN Ot M79.605 PAIN IN LEFT LEG 12/18/2019 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 M79.605 PAIN IN LEFT LEG 12/18/2019 W J30.89 Oth er allergic rhinitis Irma Solis 12/18/2019 W J01.80 Oth er acute sinusitis Ham Delmis 12/18/2019 W R05 Cough Ham, Delmis 12/19/2019 GYPSY BOWENS APRN Ot M79.605 PAIN IN LEFT LEG 12/19/2019 GYPSY BOWENS APRN Ot R79.89 OTHER SPECIFIED ABNORMAL FINDINGS OF BLO 12/20/2019 GYPSY BOWENS APRN Ot J12 .9 VIRAL PNEUMONIA, UNSPECIFIED 12/20/2019 GYPSY BOWENS APRN Ot J45.909 UNSPECIFIED ASTHMA, UNCOMPLICATED 12/20/2019 GYPSY BOWENS APRN Ot R06.02 SHORTNESS OF BREATH 12/20/2019 GYPSY BOWENS APRN Ot R79 .1 ABNORMAL COAGULATION PROFILE 12/20/2019 GYPSY BOWENS APRN Ot Z20.828 CONTACT W AND EXPOSURE TO OTH VIRAL COMM 12/20/2019 GYPSY BOWENS APRN Ot Z79.52 BRANCH DIRECTOR (CURRENT) USE OF SYSTEMIC STER 12/20/2019 GYPSY BOWENS APRN Ot Z88 .1 ALLERGY STATUS TO OTHER ANTIBIOTIC AGENT 12/20/2019 GYPSY BOWENS APRN Ot Z88 .2 ALLERGY STATUS TO SULFONAMIDES STATUS 12/20/2019 GYPSY BOWENS APRN Ot Z88 .8 ALLERGY STATUS TO OT DRUG/MEDS/BIOL SUB 12/28/2019 IRMA SOLIS MD Ot R06.02 SHORTNESS OF BREATH 12/28/2019 IRMA SOLIS MD Ot R50.9 FEVER, UNSPECIFIED 12/29/2019 IRMA SOLIS MD Ot R06.02 SHORTNESS OF BREATH 12/29/2019 IRMA SOLIS MD Ot R50.9 FEVER, UNSPECIFIED 01/01/2020 W J20.9 Acut e bronchitis Ham Delmis 01/01/2020 W R05 Cough Ham Delmis 01/01/2020 W R06.02 Mony rtness of breath Ham Delmis 01/01/2020 W J20.9 Acut e bronchitis Cheek, Delmis 01/01/2020 W R05 Cough Delmis Cheek 01/01/2020 W R06.02 Mony rtness of breath Delmis Cheek 01/03/2020 DELMIS CHEEK Ot R06.02 SHORTNESS OF BREATH 01/04/2020 MAYA FORD, IRMA Squires Ot R06.02 SHORTNESS OF BREATH 01/04/2020 MAYA FORD, IRMA Squires Ot R50.9 FEVER, UNSPECIFIED 01/15/2020 MAYA FORD, IRMA Squires Ot R06.02 SHORTNESS OF BREATH 01/15/2020 MAYA FORD, IRMA Squires Ot R50.9 FEVER, UNSPECIFIED 01/15/2020 GYPSY BOWENS APRN Ot M79.605 PAIN IN LEFT LEG 01/15/2020 GYPSY BOWENS APRN Ot R79.89 OTHER SPECIFIED ABNORMAL FINDINGS OF BLO 01/15/2020 DELMIS CHEEK Ot R06.02 SHORTNESS OF BREATH 01/15/2020 LISA JAMISON DO Ot Z01.818 ENCOUNTER FOR OTHER PREPROCEDURAL EXAMIN 01/15/2020 LISA JAMISON DO Ot Z11. 2 ENCOUNTER FOR SCREENING FOR OTHER BACTER 01/15/2020 LISA JAMISON DO Ot Z11. 59 ENCOUNTER FOR SCREENING FOR OTHER VIRAL 01/17/2020 MAYA FORD, IRMA Squires Ot R06.02 SHORTNESS OF BREATH 01/17/2020 IRMA SOLIS MD Ot R50.9 FEVER, UNSPECIFIED 01/17/2020 GYPSY BOWENS APRN Ot M79.605 PAIN IN LEFT LEG 01/17/2020 GYPSY BOWENS APRN Ot R79.89 OTHER SPECIFIED ABNORMAL FINDINGS OF BLO 01/17/2020 DELMIS CHEEK Ot R06.02 SHORTNESS OF BREATH 01/17/2020 LISA JAMISON DO Ot E03. 9 HYPOTHYROIDISM, UNSPECIFIED 01/17/2020 LSIA JAMISON DO Ot E66. 01 MORBID (SEVERE) OBESITY DUE TO EXCESS CA 01/17/2020 LISA JAMISON DO Ot G47. 33 OBSTRUCTIVE SLEEP APNEA (ADULT) (PEDIATR 01/17/2020 LISA JAMISON DO Ot I10 ESSENTIAL (PRIMARY) HYPERTENSION 01/17/2020 LISA JAMISON DO Ot J45.909 UNSPECIFIED ASTHMA, UNCOMPLICATED 01/17/2020 LISA JAMISON DO Ot K21. 9 GASTRO-ESOPHAGEAL REFLUX DISEASE WITHOUT 01/17/2020 LISA JAMISON DO Ot K80. 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 9 GOUT, UNSPECIFIED 01/17/2020 JAMISON LISA AARON Ot Z68. 42 BODY MASS INDEX (BMI) 45.0-49.9, ADULT 01/17/2020 LISA JAMISON DO Ot Z79. 82 BRANCH DIRECTOR (CURRENT) USE OF ASPIRIN 01/17/2020 JAMISON LISA AARON Ot Z79.890 HORMONE REPLACEMENT THERAPY 01/17/2020 JAMISON DOLISA Ot Z79.899 OTHER BRANCH DIRECTOR (CURRENT) DRUG THERAPY 01/17/2020 JAMISON DOLISA Ot Z86. 73 PRSNL HX OF TIA (TIA), AND CEREB INFRC W 01/17/2020 LISA JAMISON DO Ot Z88. 1 ALLERGY STATUS TO OTHER ANTIBIOTIC AGENT 01/17/2020 LISA JAMISON DO Ot Z88. 2 ALLERGY STATUS TO SULFONAMIDES STATUS 01/17/2020 [facility]88. 8 ALLERGY STATUS TO OTH DRUG/MEDS/BIOL SUB 01/21/2020 LISA JAMISON DO Ot E03. 9 HYPOTHYROIDISM, UNSPECIFIED 01/21/2020 LISA JAMISON DO Ot E66. 01 MORBID (SEVERE) OBESITY DUE TO EXCESS CA 01/21/2020 LISA JAMISON DO Ot G47. 33 OBSTRUCTIVE SLEEP APNEA (ADULT) (PEDIATR 01/21/2020 LISA JAMISON DO Ot I10 ESSENTIAL (PRIMARY) HYPERTENSION 01/21/2020 LISA JAMISON DO Ot J45.909 UNSPECIFIED ASTHMA, UNCOMPLICATED 01/21/2020 LISA JAMISON DO Ot K21. 9 GASTRO-ESOPHAGEAL REFLUX DISEASE WITHOUT 01/21/2020 LISA JAMISON DO Ot K80. 10 CALCULUS OF GALLBLADDER W CHRONIC CHOLEC 01/21/2020 LISA JAMISON DO Ot M10. 9 GOUT, UNSPECIFIED 01/21/2020 LISA JAMISON DO Ot Z68. 42 BODY MASS INDEX (BMI) 45.0-49.9, ADULT 01/21/2020 LISA JAMISON DO Ot Z79. 82 BRANCH DIRECTOR (CURRENT) USE OF ASPIRIN 01/21/2020 JAMISON DOLISA Ot Z79.890 HORMONE REPLACEMENT THERAPY 01/21/2020 JAMISON DOLISA Ot Z79.899 OTHER BRANCH DIRECTOR (CURRENT) DRUG THERAPY 01/21/2020 [facility] Ot Z86. 73 PRSNL HX OF TIA (TIA), AND CEREB INFRC W 01/21/2020 [facility] Ot Z88. 1 ALLERGY STATUS TO OTHER ANTIBIOTIC AGENT 01/21/2020 [facility] Ot Z88. 2 ALLERGY STATUS TO SULFONAMIDES STATUS 01/21/2020 [facility] Ot Z88. 8 ALLERGY STATUS TO OTH DRUG/MEDS/BIOL SUB 01/22/2020 JAMISON DOLISA Ot E03. 9 HYPOTHYROIDISM, UNSPECIFIED 01/22/2020 JAMISON DOLISA Ot E66. 01 MORBID (SEVERE) OBESITY DUE TO EXCESS CA 01/22/2020 LISA JAMISON DO Ot G47. 33 OBSTRUCTIVE SLEEP APNEA (ADULT) (PEDIATR 01/22/2020 JAMISON DOLISA Ot I10 ESSENTIAL (PRIMARY) HYPERTENSION 01/22/2020 JAMISON DOLISA Ot J45.909 UNSPECIFIED ASTHMA, UNCOMPLICATED 01/22/2020 JAMISON LISA AARON Ot K21. 9 GASTRO-ESOPHAGEAL REFLUX DISEASE WITHOUT 01/22/2020 JAMISON LISA AARON Ot K80. 10 CALCULUS OF GALLBLADDER W CHRONIC CHOLEC 01/22/2020 LISA JAMISON DO Ot M10. 9 GOUT, UNSPECIFIED 01/22/2020 JAMISON DOLISA Ot Z68. 42 BODY MASS INDEX (BMI) 45.0-49.9, ADULT 01/22/2020 JAMISON LISA AARON Ot Z79. 82 GROUP HOME (CURRENT) USE OF ASPIRIN 01/22/2020 LISA JAMISON DO Ot Z79.890 HORMONE REPLACEMENT THERAPY 01/22/2020 JAMISON LISA AARON Ot Z79.899 OTHER BRANCH DIRECTOR (CURRENT) DRUG THERAPY 01/22/2020 JAMISON DOLISA Ot Z86. 73 PRSNL HX OF TIA (TIA), AND CEREB INFRC W 01/22/2020 JAMISONLISA CARLSON DO Ot Z88. 1 ALLERGY STATUS TO OTHER ANTIBIOTIC AGENT 01/22/2020 LISA JAMISON DO Ot Z88. 2 ALLERGY STATUS TO SULFONAMIDES STATUS 01/22/2020 SHAHEEN LISA Ot Z88. 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 Results Test Result Range Influenza virus A and B antigen detectio n - 08/02/18 15:24 CALL POSITIVES (F1 HELP) [facility] FLU RESULT POSITIVE FOR INFLUENZA A ANT IGEN, NEG FOR B ANTIGEN, BY [facility] Streptococcus pyogenes antigen detection - 12/15/19 13:45 Streptococcus pyogenes antigen detection NEGATIVE NEGATIVE Influenza virus A and B antigen detectio n - 12/15/19 13:45 FLU RESULT NEGATIVE FOR INFLUENZA A AND B ANTIGENS BY [facility] Bacterial throat culture - 12/15/19 13:4 5 Bacterial throat culture [facility] Coronavirus SARS-CoV-2 SO 2019 - [...] aureus (MRSA) scr eening culture NEG NRG Complete urinalysis with reflex to cultu re - 02/17/20 23:10 Urine color determination YELLOW NRG Urine clarity determination CLEAR NR G Urine pH measurement by test strip 5.5 5-9 Specific gravity of urine by test strip >= 1.016-1.022 Urine protein assay by test strip, semi-quantitative TRACE NEGATIVE Urine glucose detection by automated test strip NE GATIVE NEGATIVE Erythrocytes detection in urine sediment by light micr oscopy NEGATIVE NEGATIVE Urine ketones detection by automated test strip NE GATIVE NEGATIVE Urine nitrite detection by test strip NEGATIVE NEGATIVE Urine total bilirubin detection by test strip NEGA TIVE NEGATIVE Urine urobilinogen measurement by automated test strip (mass/volume) 0.2 mg/dL < = 1.0 Urine leukocyte esterase detection by dipstick 1+ NEGATIVE Automated urine sediment erythrocyte cou nt by microscopy (number/high power field) NONE NRG Automated urine sediment leukocyte count by microscopy (number/high power field) [HPF] NRG Bacteria detection in urine sediment by light microsco py TRACE NRG Squamous epithelial cells detection in u rine sediment by light microscopy 25-50 NRG Crystals detection in urine sediment by light microsco py NONE NRG Casts detection in urine sediment by light microscopy NONE NRG Mucus detection in urine sediment by light microscopy SMALL NRG Complete urinalysis with reflex to culture CULTURE PENDING NRG Complete blood count (CBC) with automate d white blood cell (WBC) differential - 02/17/20 23:30 Blood leukocytes automated count (number/volume) 10.6 10*3/uL 4.3-11.0 Blood erythrocytes automated count (number/volume) 3.82 10*6/uL 4.35-5.85 Venous blood hemoglobin measurement (mass/volume) 9.6 g/dL 11.5-16.0 Blood hematocrit (volume fraction) 32 % 35-52 Automated erythrocyte mean corpuscular volume 83 [ foz_us] 80-99 Automated erythrocyte mean corpuscular h emoglobin (mass per erythrocyte) 25 pg 25-34 Automated erythrocyte mean corpuscular h emoglobin concentration measurement (mass/volume) 30 g/dL 32-36 Automated erythrocyte distribution width ratio 17. 2 % 10.0- 14.5 Automated blood platelet count (count/volume) 370 10*3/uL 130-400 Automated blood platelet mean volume measurement 9.6 [foz_us] 7.4-10.4 Automated blood neutrophils/100 leukocytes 60 % 42-75 Automated blood lymphocytes/100 leukocytes 26 % 12-44 Blood monocytes/100 leukocytes 10 % 0-12 Automated blood eosinophils/100 leukocytes 4 % 0-10 Automated blood basophils/100 leukocytes 1 % 0-10 Blood neutrophils automated count (number/volume) 6.4 10*3 1.8-7.8 Blood lymphocytes automated count (number/volume) 2.8 10*3 1.0-4.0 Blood monocytes automated count (number/volume) 1. 1 10*3 0.0-1.0 Automated eosinophil count 0.4 10*3/uL 0 .0-0.3 Automated blood basophil count (count/volume) 0.1 10*3/uL 0.0-0.1 Comprehensive metabolic panel - 02/17/20 23:30 Serum or plasma sodium measurement (moles/volume) 140 mmol/L 135-145 Serum or plasma potassium measurement (moles/volume) 3.5 mmol/L 3.6-5.0 Serum or plasma chloride measurement (moles/volume) 105 mmol/L 98-107 Serum or plasma calcium measurement (mass/volume) 9.7 mg/dL 8.5-10.1 Serum or plasma albumin measurement (mass/volume) 3.8 g/dL 3.2-4.5 CALCIUM CORRECTED 9.9 mg/dL 8.5-10.1 Encounters ACCT No. Visit Date/Time Discharge Status Pt. Type Provider Facility Loc./Unit Complaint [id number] 02/15/2018 16:03:27 02/15/2018 23:59:5 9 CLS Outpatient [id number] 02/12/2020 14:05:00 020 23:59:59 CLS Outpatient DELMIS CHEEK [facility] RAD R CALF PAIN AND SWELLING [id number] 01/17/2020 08:32:00 13:40:00 DIS Outpatient LISA JAMISON DO [facility] SDC SYMPTOMATIC CHOLELITHIA SIS [id number] 01/15/2020 05:43:00 10:08:00 DIS Outpatient LISA JAMISON DO [facility] PREOP SYMPTOMATIC CHOLELITHIA SIS [id number] 01/01/2020 11:49:00 23:59:59 CLS Outpatient DELMIS CHEEK [facility] RAD SOB [id number] 12/18/2019 11:48:00 23:59:59 CLS Outpatient GYPSY BOWENS APRN [facility] RAD ELEVATED D DIMER,LT TG F PAIN [id number] 12/17/2019 19:39:00 22:30:00 DIS Emergency GYPSY BOWENS APRN [facility] ER SOB [id number] 12/15/2019 14:30:00 23:59:59 CLS Outpatient IRMA SOLIS MD [facility] LABNPT [id number] 08/02/2018 14:58:00 17:32:00 DIS Emergency KIRBY CARL [facility] ER FLU SYMPTOMS [id number] 02/17/2020 23:47:00 Document Registration
--- NOTE | 2020-02-18 01:10 | NUR ---
[facility] CALLED TO ATTEMPT IV STICK ON THIS PATIENT.
--- NOTE | 2020-02-18 01:57 | NUR ---
RETURNED FROM CT, PATIENT MADE COMFORTABLE IN BED WITH CALL LIGHT IN REACH, DENIES NEEDS AT THIS TIME WILL CONTINUE TO MONITOR.
[2020-02-18] MEDS ORDERED: HOLD METFORMIN - RECEIVED CONTRAST 20 ML VIAL IV SCH (02:00)
[2020-02-18] MEDS ORDERED: IOHEXOL 350 MG/ML 100 ML (OMNIPAQUE 350) VIAL IV ONE (02:00)
[2020-02-18] MEDS ORDERED: NS 100 ML (IVPB) BAG IV ONE (02:00)
--- NOTE | 2020-02-18 02:18 | NUR ---
[facility] CALLED FOR DR MCCANN
[2020-02-18] MEDS ORDERED: FLUCONAZOLE 150 MG TABLET (ED ONLY) PO STA (02:25)
[2020-02-18] MEDS ORDERED: ENOXAPARIN 60 MG/0.6 ML (LOVENOX) SYR SC ONE (02:30)
[2020-02-18] MEDS ORDERED: ENOXAPARIN 100 MG/1 ML (LOVENOX) SYR ONE (02:47)
[2020-02-18] MEDS ORDERED: ENOXAPARIN 40 MG/0.4 ML (LOVENOX) SYR ONE (02:47)
--- OUTSIDE RECORDS SUMMARY | 2020-02-18 02:53 | XMS REPORT | Continuity of Care Document ---
Author Organization Unknown Address Unknown Phone Unavailable Allergies Active Description Code Type Severity Reaction Onset Reported/Identified Relationship to Patient Clinical Status Yes ciprofloxacin [id number] Steven g Allergy Unknown N/A 08/02/2018 Yes levofloxacin [id number] Drug Allergy Unknown N/A 08/02/2018 Yes losartan [id number] Drug Allergy Unknown N/A 08/02/2018 Yes sulfamethoxazole [id number] Drug Allergy Unknown N/A 08/02/2018 Yes trimethoprim [id number] Drug Allergy Unknown N/A 08/02/2018 Yes ciprofloxacin [id number] Steven g Allergy Severe CHEST PAIN 01/15/2020 Yes amoxicillin [id number] Drug Aller gy Unknown N/A 01/15/2020 Yes atenolol [id number] Drug Allergy Unknown N/A 01/15/2020 Yes atorvastatin [id number] Drug Allergy Unknown N/A 01/15/2020 Yes lisinopril [id number] Drug Allerg y Unknown N/A 01/15/2020 Yes moxifloxacin [id number] Drug Allergy Unknown UNSURE OF REACT 01/15/2020 [...] 05 COUGH 08/02/2018 KIRBY CARL Ot Z79.51 MCC (CURRENT) USE OF INHALED STERO 08/02/2018 KIRBY CARL Ot Z79.52 MOTOR MECHANIC (CURRENT) 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 OF SYSTEMIC STER 08/02/2018 KIRBY [...] 05 COUGH 08/04/2018 KIRBY CARL Ot Z79.51 MOTOR MECHANIC (CURRENT) USE OF INHALED STERO 08/04/2018 KIRBY CARL Ot Z79.52 MOTOR MECHANIC (CURRENT) USE OF SYSTEMIC STER 08/04/2018 KIRBY [...] 05 COUGH 08/08/2018 KIRBY CARL Ot Z79.51 MCC (CURRENT) USE OF INHALED STERO 08/08/2018 KIRBY CARL Ot Z79.52 MOTOR MECHANIC (CURRENT) USE OF SYSTEMIC STER 08/08/2018 KIRBY [...] AND EXPOSURE TO OTH VIRAL COMM 12/17/2019 GYPYS BOWENS APRN Ot Z79.52 MOTOR MECHANIC (CURRENT) USE OF SYSTEMIC STER 12/17/2019 GYPSY BOWENS APRN Ot Z88 .1 ALLERGY STATUS TO OTHER ANTIBIOTIC AGENT 12/17/2019 GYPSY BOWENS APRN Ot Z88 .2 ALLERGY STATUS TO SULFONAMIDES STATUS 12/17/2019 GYPSY BOWENS APRN Ot Z88 .8 ALLERGY STATUS TO OT DRUG/MEDS/BIOL SUB 12/18/2019 GYPSY BOWENS APRN Ot M79.605 PAIN IN LEFT LEG 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 9 HYPOTHYROIDISM, UNSPECIFIED 01/17/2020 LISA JAMISON DO Ot E66. 01 MORBID [...] CALCULUS OF GALLBLADDER W CHRONIC CHOLEC 01/17/2020 [facility] LISA AARON Ot M10. 9 GOUT, UNSPECIFIED 01/17/2020 [facility] LISA AARON Ot Z68. 42 BODY MASS INDEX (BMI) 45.0-49.9, ADULT 01/17/2020 LISA JAMISON DO Ot Z79. 82 MOTOR MECHANIC (CURRENT) USE OF ASPIRIN 01/17/2020 [facility] LISA AARON Ot Z79.890 HORMONE REPLACEMENT THERAPY 01/17/2020 JAMISON DOLISA Ot Z79.899 OTHER MOTOR MECHANIC (CURRENT) DRUG THERAPY 01/17/2020 JAMISON DOLISA Ot Z86. 73 PRSNL HX OF TIA (TIA), AND CEREB INFRC W 01/17/2020 LISA JAMISON DO Ot Z88. 1 ALLERGY STATUS TO OTHER ANTIBIOTIC AGENT 01/17/2020 LISA JAMISON DO Ot Z88. 2 ALLERGY STATUS TO SULFONAMIDES STATUS 01/[facility] ALLERGY STATUS TO [...] 01/21/2020 LISA JAMISON DO Ot Z79. 82 MOTOR MECHANIC (CURRENT) USE OF ASPIRIN 01/21/2020 JAMISON DOLISA Ot Z79.890 HORMONE REPLACEMENT THERAPY 01/21/2020 JAMISON DOLISA Ot Z79.899 OTHER MOTOR MECHANIC (CURRENT) DRUG THERAPY 01/21/2020 [facility] Z86. 73 PRSNL HX OF TIA (TIA), AND CEREB INFRC W 01/21/2020 [facility] Z88. 1 ALLERGY STATUS TO OTHER ANTIBIOTIC AGENT 01/21/2020 [facility] Z88. 2 ALLERGY STATUS TO SULFONAMIDES STATUS 01/21/2020 [facility] Z88. 8 ALLERGY STATUS TO [...] 01/22/2020 [facility] LISA AARON Ot Z79. 82 MCC (CURRENT) USE OF ASPIRIN 01/22/2020 LISA JAMISON DO Ot Z79.890 HORMONE REPLACEMENT THERAPY 01/22/2020 J[facility] LISA AARON Ot Z79.899 OTHER MOTOR MECHANIC (CURRENT) DRUG THERAPY 01/22/2020 JAMISON DOLISA Ot [...] calf pain Delmis Cheek 02/14/2020 [facility] DIRECTOR Ot R22.41 LOCALIZED SWELLING, MASS AND LUMP, RIGHT 02/16/2020 W L03.115 Ce llulitis of right lower extremity Delmis Cheek 02/16/2020 W M79.661 Ri ght calf pain Delmis Cheek Procedures There is no data. Results Test Result Range Influenza virus A and B antigen detectio n - 08/02/18 15:24 CALL POSITIVES (F1 HELP) [facility] FLU RESULT POSITIVE FOR INFLUENZA A ANT IGEN, NEG FOR B ANTIGEN, BY [facility] Streptococcus pyogenes antigen detection - 12/15/19 13:45 Streptococcus pyogenes antigen detection NEGATIVE NEGATIVE Influenza virus A and B antigen detectio n - 12/15/19 13:45 FLU RESULT NEGATIVE FOR INFLUENZA A AND B ANTIGENS BY [facility] Bacterial throat culture - 12/15/19 13:4 5 Bacterial throat culture [facility] Coronavirus SARS-CoV-2 SO 2019 - 0 13:45 [...] plasma chloride measurement (moles/volume) 105 mmol/L 98-107 Carbon dioxide 22 mmol/L 21-32 Serum or plasma anion gap determination (moles/volume) 13 mmol/L 5-14 Serum or plasma urea nitrogen measurement (mass/volume ) 15 mg/dL 7-18 Serum or plasma creatinine measurement (mass/volume) 0.85 mg/dL 0.60-1.30 Serum or plasma urea nitrogen/creatinine mass ratio 18 NRG Serum or plasma creatinine measurement w ith calculation of estimated glomerular filtration rate > NRG Serum or plasma glucose measurement (mass/volume) 145 mg/dL 70-105 Serum or plasma calcium measurement (mass/volume) 9.7 mg/dL 8.5-10.1 Serum or plasma total bilirubin measurement (mass/volu me) 0.3 mg/dL 0.1-1.0 Serum or plasma alkaline phosphatase dee dee surement (enzymatic activity/volume) 101 U/L 40-136 Serum or plasma aspartate aminotransfera se measurement (enzymatic activity/volume) 17 U/L 5-34 Serum or plasma alanine aminotransferase measurement (enzymatic activity/volume) 17 U/L 0-55 Serum or plasma protein measurement (mass/volume) 6.9 g/dL 6.4-8.2 Serum or plasma albumin measurement (mass/volume) 3.8 g/dL 3.2-4.5 CALCIUM CORRECTED 9.9 mg/dL 8.5-10.1 Serum ragweed IgE antibody assay - 02/16 23:30 Serum ragweed IgE antibody assay 173 U/L 125-220 PROCALCITONIN (PCT) - 02/17/20 23:30 PROCALCITONIN (PCT) 0.03 ng/mL <0.10 PT panel in platelet poor plasma by coag ulation assay - 02/17/20 23:30 Prothrombin time (PT) in platelet poor plasma by coagu lation assay 13.4 s 12.2-14.7 INR in platelet poor plasma or blood by coagulation as say 1.0 0.8-1.4 Activated partial thromboplastin time (a PTT) in platelet poor plasma bycoagulation assay - 02/17/20 23:30 Activated partial thromboplastin time (a PTT) in platelet poor plasma bycoagulation assay 31 s 24-35 Fibrin D-dimer FEU measurement in platel et poor plasma (mass/volume) - 02/17/20 23:30 Fibrin D-dimer FEU measurement in platelet poor plasma (mass/volume) 3.67 ug/mL 0.00-0.49 Blood lactic acid measurement (moles/vol ume) - 02/17/20 23:30 Blood lactic acid measurement (moles/volume) 2.81 mmol/L 0.50-2.00 Erythrocyte sedimentation rate by connor gren method - 02/17/20 23:30 Erythrocyte sedimentation rate by westergren method 51 mm 0- 30 Serum or plasma C reactive protein measu rement (mass/volume) - 02/17/20 23:30 Serum or plasma C reactive protein measurement (mass/v olume) 4.39 mg/dL 0.00-0.50 Serum or plasma lactate measurement (mol es/volume) - 02/18/20 01:30 Serum or plasma lactate measurement (moles/volume) 1.82 mmol/L 0.50-2.00 Encounters ACCT No. Visit Date/Time Discharge Status Pt. Type Provider Facility Loc./Unit Complaint [id number] 02/15/2018 16:03:27 02/15/2018 23:59:5 9 CLS Outpatient [id number] 02/12/2020 14:05:00 23:59:59 CLS Outpatient DELMIS CHEEK [facility] RAD R CALF PAIN AND SWELLING [id number] 01/17/2020 08:32:00 13:40:00 DIS Outpatient LISA JAMISON DO [facility] SDC SYMPTOMATIC CHOLELITHIA SIS [id number] 01/15/2020 05:43:00 10:08:00 DIS Outpatient LISA JAMISON DO [facility] PREOP SYMPTOMATIC CHOLELITHIA SIS [id number] 01/01/2020 11:49:00 23:59:59 CLS Outpatient DELMIS CHEEK [facility] RAD SOB [id number] 12/18/2019 11:48:00 23:59:59 CLS Outpatient GYPSY BOWENS APRN [facility] RAD ELEVATED D DIMER,LT TG F PAIN [id number] 12/17/2019 19:39:00 22:30:00 DIS Emergency GYPSY BOWENS APRN [facility] ER SOB [id number] 12/15/2019 14:30:00 23:59:59 CLS Outpatient IRMA SOLIS MD [facility] LABNPT [id number] 08/02/2018 14:58:00 17:32:00 DIS Emergency KIRBY CARL [facility] ER FLU SYMPTOMS [id number] 02/17/2020 23:47:00 Document Registration
[2020-02-18 03:25] VITALS: BP 146/73
--- NOTE | 2020-02-18 03:25 | NUR ---
JERMAINE LICONA admitted to room 426-1, with an admitting diagnosis of bilateral pulmonary emboli, PUI, on 02/18/20 from ER via , accompanied by ER staff. JERMAINE LICONA introduced to surroundings, call light, bed controls, phone, TV, temperature control, lights, meal times, smoking policy, visitor policy, side rail policy, bathrooms and showers. Patient Rights given to patient in the handbook. JERMAINE LICONA verbalizes understanding that [facility] is not responsible for the loss or damage to any personal effects or valuables that are kept in the patients posession during their hospitalization.
[2020-02-18] MEDS ORDERED: NS IV 1000 ML 1,000 ML ONE (03:43)
[2020-02-18] MEDS: NS IV 1000 ML 1,000 ML IV SCH ×2 (03:45→14:18)
[2020-02-18 04:16] LABS: BASOPHILS # (AUTO) 0.1 10^3/uL (0.0-0.1); BASOPHILS % (AUTO) 1 % (0-10); EOSINOPHILS # (AUTO) 0.2 10^3/uL (0.0-0.3); EOSINOPHILS % (AUTO) 2 % (0-10); HEMATOCRIT 29 % (35-52); HEMOGLOBIN 8.5 G/DL (11.5-16.0); LYMPHOCYTES % (AUTO) 22 % (12-44); MEAN CORPUSCULAR HEMOGLOBIN 25 PG (25-34); MEAN CORPUSCULAR HGB CONC 30 G/DL (32-36); MEAN CORPUSCULAR VOLUME 83 FL (80-99); MEAN PLATELET VOLUME 9.6 FL (7.4-10.4); MONOCYTES # (AUTO) 0.9 X 10^3 (0.0-1.0); MONOCYTES % (AUTO) 10 % (0-12); NEUTROPHILS # (AUTO) 5.7 X 10^3 (1.8-7.8); NEUTROPHILS % (AUTO) 65 % (42-75); PLATELET COUNT 308 10^3/uL (130-400); WHITE BLOOD COUNT 8.8 10^3/uL (4.3-11.0)
[2020-02-18 04:28] VITALS: BP 138/72
[2020-02-18 04:33] LABS: ALBUMIN 3.5 GM/DL (3.2-4.5)
--- NOTE | 2020-02-18 04:33 | NUR ---
MAT PROTOCOL SCORE OF 4 ALBUTEROL MDI 2 PUFFS BID AND PRN (PUI) TO KEEP SATS GREATER THAN 90% RE-ASSES IN 72 HOURS OR SOONER IF NEEDED Addendum: 02/18/20 at 0434 by DEVON NAVAS RT Amended: Links added.
[2020-02-18 04:34] LABS: CHLORIDE 107 MMOL/L (98-107); POTASSIUM 3.6 MMOL/L (3.6-5.0); SODIUM 141 MMOL/L (135-145)
[2020-02-18 04:36] LABS: GLUCOSE 109 MG/DL (70-105); TOTAL PROTEIN 6.3 GM/DL (6.4-8.2)
[2020-02-18 04:37] LABS: CARBON DIOXIDE 21 MMOL/L (21-32)
[2020-02-18 04:38] LABS: BILIRUBIN,TOTAL 0.3 MG/DL (0.1-1.0)
[2020-02-18 04:39] LABS: ALKALINE PHOSPHATASE 91 U/L (40-136)
[2020-02-18 04:40] LABS: CREATININE SERUM 0.78 MG/DL (0.60-1.30); GFR ESTIMATED > 60
[2020-02-18 04:41] LABS: BUN/CREATININE RATIO 18
[2020-02-18 04:43] LABS: ALANINE AMINOTRANSFERASE 14 U/L (0-55)
[2020-02-18] MEDS ORDERED: ACETAMINOPHEN 500 MG TAB (TYLENOL) PO PRN (05:00)
[2020-02-18] MEDS ORDERED: ONDANSETRON 4 MG/2 ML (SDV) Z0FRAN IV PRN (05:00)
--- NOTE | 2020-02-18 07:23 | Diagnostic Imaging Report ---
EXAMINATION: Chest 1 view HISTORY: Fever and cough COMPARISON: 01/01/2020 FINDINGS: The lungs are clear without edema or pneumonia. No pleural effusion or pneumothorax. Heart size is normal. IMPRESSION: 1. Clear lungs. Dictated by: Dictated on workstation # [id number]
[2020-02-18] MEDS ORDERED: DOCU-143 PO (07:34)
[2020-02-18] MEDS ORDERED: FISH1CAP15 PO (07:48)
--- NOTE | 2020-02-18 07:53 | Diagnostic Imaging Report ---
EXAMINATION: CT angiography of the chest. TECHNIQUE: Contrast enhanced thin section helical images were obtained through the chest with intravenous contrast timed for the optimal opacification of the arterial structures per CTA protocol. Post-processing, reconstructions and interpretation of angiographic images of the vessels was performed. 3D MIP reconstructions were performed and reviewed. All CT scans use one or more of the following dose optimizing techniques: automated exposure control, MA and/or KvP adjustment based on a patient size and exam type, or iterative reconstruction. HISTORY: Fever and cough COMPARISON: 12/17/2019 FINDINGS: There are pulmonary emboli in the segmental vessels of the right and left upper lobes and both lower lobes. Overall thrombus burden is mild. No CT evidence of right heart strain. There is no edema or pneumonia. No pleural effusion. No pneumothorax. No suspicious nodules. Heart size is normal. There are now coronary artery calcifications. No pericardial effusion. Aorta is normal in caliber. There is no axillary or supraclavicular lymphadenopathy. There is no mediastinal lymphadenopathy. Limited views of the upper abdomen show changes of cholecystectomy. There are no suspicious osseus lesions. IMPRESSION: 1. Segmental pulmonary emboli in both upper lobes and lower lobes. 2. Clear lungs. Dictated by: Dictated on workstation # [id number]
[2020-02-18] MEDS ORDERED: Cascara Sagrada PO (07:55)
[2020-02-18 07:56] VITALS: BP 166/73
[2020-02-18] MEDS: RT-ALBUTEROL INHALER HFA (VENTOLIN HFA) 18 GM IH SCH ×2 (09:19→18:59)
[2020-02-18] MEDS ORDERED: NS IV 500 ML 500 ML IV SCH (10:33)
--- NOTE | 2020-02-18 10:39 | History & Physical ---
History of Present Illness History of Present Illness Reason for visit/HPI PT REPORTS THAT SHE IS FEELING BETTER TODAY - SHE HAS BEEN INCREASINGLY SHORT OF BREATH. SHE STATES THAT SHE HAS NOT BEEN FEELING WELL FOR THE PAST FEW MONTHS AND THAT SHE BECAME INCREASINGLY SHORT OF BREATH AND HER RIGHT LEG ALSO HAS BEEN PAINFUL. SHE WAS EVALUATED IN THE ER, HAD PULMONARY EMBOLISM SCATTERED ON RIGHT AND LEFT LUNGS. DVT SCREEN ON LOWER LEG HAS BEEN NEGATIVE. Date of Admission Feb 18, 2020 at 02:44 Date Seen by a Provider: Feb 18, 2020 Time Seen by a Provider: 09:00 I consulted on this patient on 02/18/20 10:32 Attending Physician Irma Solis MD Admitting Physician Irma Solis MD Consult Allergies and Home Medications Allergies Coded Allergies: ciprofloxacin (Verified Allergy, Severe, CHEST PAIN, 02/18/20) amoxicillin (Verified Allergy, Unknown, 02/18/20) atenolol (Verified Allergy, Unknown, 02/18/20) atorvastatin (Verified Allergy, Unknown, 02/18/20) levofloxacin (Verified Allergy, Unknown, 02/18/20) lisinopril (Verified Allergy, Unknown, 02/18/20) losartan (Verified Allergy, Unknown, 02/18/20) moxifloxacin (Verified Allergy, Unknown, UNSURE OF REACTION, 02/18/20) sulfamethoxazole (Verified Allergy, Unknown, 02/18/20) trimethoprim (Verified Allergy, Unknown, 02/18/20) Home Medications Allopurinol 300 Mg Tablet, 300 MG PO DAILY, (Reported) Aspirin 81 Mg Tablet.dr, 3 TAB.CHEW PO TID, (Reported) Cholecalciferol (Vitamin D3) 25 Mcg Capsule, 25 MCG PO DAILY, (Reported) Docusate Sodium 100 Mg Capsule, 100 MG PO DAILY, (Reported) Fish Oil/Dha/Epa 1 Each Capsule, 1 EACH PO DAILY, (Reported) Garlic 1,000 Mg Capsule, 1,000 MG PO BID, (Reported) Hydrochlorothiazide 25 Mg Tablet, 25 MG PO DAILY, (Reported) Hydrocodone/Acetaminophen 1 Each Tablet, 1 TAB PO Q4-6HR Prescribed by: LISA JAMISON on 01/17/20 1025 Ibuprofen 600 Mg Tablet, 600 MG PO Q6H PRN for PAIN-MILD, (Reported) Levothyroxine Sodium 150 Mcg Tablet, 150 MCG PO UD, (Reported) Wednesday, Wednesday, Wednesday, Levothyroxine Sodium 175 Mcg Tablet, 175 MCG PO UD, (Reported) Wednesday, Wednesday, Wednesday Montelukast Sodium 10 Mg Tablet, 10 MG PO DAILY, (Reported) Multivitamin with Minerals 1 Each Tablet, 1 EACH PO DAILY, (Reported) Mv-Mn/FA/Vit K/Lycop/Lut/Zeaxa 1 Each Tablet, 1 EACH PO DAILY, (Reported) Nebivolol HCl 10 Mg Tab, 10 MG PO DAILY, (Reported) [Albuterol Sulfate] Unknown Strength , Unknown Dose NEB DAILY, (Reported) [Cascara Sagrada] , 450 MG PO BID, (Reported) Patient Home Medication List Home Medication List Reviewed: Yes Past Bpxsvwc-Wnqfad-Bqugan Hx Past Med/Social Hx: Reviewed Nursing Past Med/Soc Hx Patient Social History Marrital Status: Living Status: LIVES AT HOME WITH SPOUSE AND DTR Employed/Student: retired Alcohol Use: Denies Use Recreational Drug Use: No 2nd Hand Smoke Exposure: Yes Physical Abuse Screen: No Sexual Abuse: No Recent Foreign Travel: No Contact w/other who traveled: No Recent Hopitalizations: No Recent Infectious Disease Expo: No Immunizations Up To Date Tetanus Booster (TDap): Less than 5yrs Pediatric: Yes Seasonal Allergies Seasonal Allergies: Yes Past Medical History Surgeries: Gallbladder, Hysterectomy Currently Using CPAP: Yes Currently Using BIPAP: No Cardiac: Hypertension Neurological: Stroke : No Reproductive: No Sexually Transmitted Disease: No HIV/AIDS: No Hysterectomy Genitourinary: UTI-Chronic Gastrointestinal: Gastroesophageal Reflux, Chronic Constipation, Gall Bladder Disease Musculoskeletal: Gout Endocrine: Hypothyroidsim Loss of Vision: Denies Hearing Impairment: Denies Did You Recieve Any Treatments: No History of Blood Disorders: Yes (HX ANEMIA) Adverse Reaction to Blood Jackson: No (N/A) Family History Reviewed Nursing Family Hx Cardiovascular disease 19 FATHER Colon cancer 19 MOTHER Diabetes mellitus 19 FATHER 19 MOTHER FH: CHF (congestive heart failure) 19 FATHER FH: stroke 19 MOTHER Thyroid disease 19 MOTHER Heart Disease, Diabetes, Hypertension, Stroke Review of Systems Constitutional: No chills, No fever, No malaise EENTM: No hoarseness, No throat pain Respiratory: No cough; dyspnea on exertion, short of breath Cardiovascular: No chest pain, No edema, No palpitations Gastrointestinal: No abdominal pain, No nausea, No vomiting Genitourinary: no symptoms reported Musculoskeletal: muscle weakness Skin: no symptoms reported Psychiatric/Neurological: Denies Anxiety, Denies Depressed All Other Systems Reviewed Negative Unless Noted: Yes Physical Exam Vital Signs Vital Signs - First Documented 02/17/20 02/18/20 23:30 04:28 Temp 36.8 Pulse 75 Resp 22 B/P (MAP) 138/72 (94) Pulse Ox 97 FiO2 21 Capillary Refill : Less Than 3 Seconds Height, Weight, BMI Height: 5'8.00" Weight: 282lbs. oz. 127.052018bv; 45.90 BMI Method:Stated General Appearance: No Apparent Distress, WD/WN Eyes: Bilateral Eye Normal Inspection, Bilateral Eye PERRL, Bilateral Eye EOMI HEENT: PERRL/EOMI, TMs Normal, Normal ENT Inspection, Pharynx Normal Neck: Full Range of Motion, Supple Respiratory: Chest Non Tender, Lungs Clear, Normal Breath Sounds, No Accessory Muscle Use, No Respiratory Distress Cardiovascular: Regular Rate, Rhythm, No Edema, No Gallop, No JVD, No Murmur, Normal Peripheral Pulses Gastrointestinal: Normal Bowel Sounds, No Pulsatile Mass, Non Tender, Soft Rectal: Deferred Back: Normal Inspection, No Vertebral Tenderness Extremity: Normal Capillary Refill, Normal Inspection, Normal Range of Motion, Non Tender, No Calf Tenderness, No Pedal Edema Neurologic/Psychiatric: Alert, Oriented x3, No Motor/Sensory Deficits, Normal Mood/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 - LAST DVT SCREEN NEGATIVE - ECHO PENDING HYPERTENSION - CONTINUE WITH HOME ANTIHYPERTENSIVES. HYPOTHYROIDISM - CONTINUE WITH LEVOTHYROXINE - MONITOR LABS Admission Diagnosis PULMONARY EMBOLI HYPERTENSION HYPOTHYROIDISM Admission Status: Observation Clinical Quality Measures DVT/VTE Risk/Contraindication: Risk Factor Score Per Nursin RFS Level Per Nursing on Admit: 4+=Very High IRMA SOLIS MD Feb 18, 2020 10:39
[2020-02-18] MEDS ORDERED: IRON DEXTRAN INJECTION 1,000 MG in NS (IVPB) 250 ML IV ONE (10:45)
[2020-02-18] MEDS ORDERED: RT-ALBUTEROL SULF 2.5 MG/3 ML PRE-MIX VIAL IH PRN (10:45)
[2020-02-18] MEDS ORDERED: HYDROCORTISONE 100 MG/2 ML (Solu-CORTEF) VIAL IV PRN (10:45)
[2020-02-18] MEDS ORDERED: diphenhydrAMINE 50 MG/ML INJ (BENADRYL) IV PRN (10:45)
[2020-02-18] MEDS ORDERED: IRON DEXTRAN INJECTION 25 MG in NS (IVPB) 5.75 ML IV ONE (10:45)
[2020-02-18] MEDS ORDERED: EPINEPHrine INJECTION 1 MG/ML AMP IM PRN (10:45)
[2020-02-18] MEDS: APIXABAN 5 MG (ELIQUIS) TABLET PO SCH ×2 (11:14→20:02)
[2020-02-18 11:24] VITALS: BP 142/72
[2020-02-18 16:18] VITALS: BP 139/64
[2020-02-18 19:55] VITALS: BP 149/68
[2020-02-18] MEDS: CARVEDILOL 12.5 MG (COREG) TABLET PO SCH (20:02)
[2020-02-19 00:08] VITALS: BP 115/58
[2020-02-19] MEDS: NS IV 1000 ML 1,000 ML IV SCH ×2 (00:59→10:52)
[2020-02-19 03:50] VITALS: BP 118/56
--- NOTE | 2020-02-19 06:29 | NUR ---
DR. TREJO NOTIFIED OF COVID RESULTS BEING NEGATIVE, VERBAL ORDERS RECEIVED TO TAKE PT OUT OF ISOLATION.
[2020-02-19] MEDS ORDERED: LEVOTHYROXINE 150 MCG (LEVOTHROID) TAB PO SCH (06:30)
[2020-02-19] MEDS: RT-ALBUTEROL INHALER HFA (VENTOLIN HFA) 18 GM IH SCH (07:31)
[2020-02-19 07:54] VITALS: BP 119/75
--- NOTE | 2020-02-19 08:03 | Progress Note ---
Subjective Subjective Date Seen by Provider: Feb 19, 2020 Time Seen by Provider: 07:20 Pt awake and alert reports feeling better today with decreased shortness of breath. She did get winded after her trip to the bathroom, but reports it is improved significantly from before. She denies pain in her leg while walking, but right leg was tender in the two spots (upper medial duran medial ankle) that had previously been swollen and erythematous. There were slight color changes but no warmth or erythema. Review of Systems General: No Chills, No Appetite HEENT: No Head Aches, No Visual Changes, No Sinus Congestion, No Sore Throat Pulmonary: Dyspnea, Cough (Occasional dry ) Cardiovascular: No: Chest Pain, Palpitations Gastrointestinal: No: Nausea, Vomiting, Abdominal Pain, Diarrhea, Constipation Genitourinary: No Dysuria, No Hematuria Musculoskeletal: leg pain Neurological: Numbness (Chronic bilateral toes); No: Weakness All Other Systems Reviewed All Other Systems Reviewed: Yes Objective Exam Vital Signs Vital Signs - First Documented 02/17/20 02/18/20 02/18/20 23:30 04:28 19:00 Temp 36.8 Pulse 75 Resp 22 B/P (MAP) 138/72 (94) Pulse Ox 97 O2 Flow Rate 2.00 FiO2 21 Capillary Refill : Less Than 3 Seconds General Appearance: No Apparent Distress, WD/WN Eyes: Bilateral Eye Normal Inspection, Bilateral Eye PERRL, Bilateral Eye EOMI HEENT: PERRL/EOMI, TMs Normal, Normal ENT Inspection, Pharynx Normal Neck: Full Range of Motion, Supple Respiratory: Chest Non Tender, Lungs Clear, Normal Breath Sounds, No Accessory Muscle Use, No Respiratory Distress Cardiovascular: Regular Rate, Rhythm, No Edema, No Gallop, No JVD, No Murmur, Normal Peripheral Pulses Gastrointestinal: Normal Bowel Sounds, No Pulsatile Mass, Non Tender, Soft Rectal: Deferred Back: Normal Inspection, No Vertebral Tenderness Extremity: Normal Capillary Refill, Normal Inspection, Normal Range of Motion, No Calf Tenderness, No Pedal Edema, Other (Right lower leg point tenderness) Neurologic/Psychiatric: Alert, Oriented x3, No Motor/Sensory Deficits, Normal Mood/Affect Skin: Normal Color, Warm/Dry Lymphatic: No Adenopathy Results Lab Microbiology 02/17/20 Blood Culture - Preliminary, Resulted No growth 02/17/20 Urine Culture - Preliminary, Resulted Normal skin maxine Assessment/Plan Assessment/Plan Assessment and Plan PULMONARY EMBOLI - ELIQUIS 10MG BID X 7 DAYS THEN 5MG BID THEREAFTER X 6 MONTHS. - LAST DVT SCREEN NEGATIVE - ECHO PENDING HYPERTENSION - CONTINUE WITH HOME ANTIHYPERTENSIVES. HYPOTHYROIDISM - CONTINUE WITH LEVOTHYROXINE Clinical Quality Measures DVT/VTE Risk/Contraindication: Risk Factor Score Per Nursin RFS Level Per Nursing on Admit: 4+=Very High MARY WALKER MED STUD Feb 19, 2020 08:03
[2020-02-19] MEDS ORDERED: MONTELUKAST 10 MG (SINGULAIR) TAB PO SCH (09:00)
[2020-02-19] MEDS ORDERED: HYDROCHLOROTHIAZIDE 25 MG (HCTZ) TAB PO SCH (09:00)
[2020-02-19] MEDS ORDERED: DOCUSATE SODIUM 100 MG (COLACE) CAP PO SCH (09:00)
[2020-02-19] MEDS ORDERED: ALLOPURINOL 300 MG (ZYLOPRIM) TAB PO SCH (09:00)
[2020-02-19] MEDS ORDERED: ASPIRIN E.C. 81 MG (ECOTRIN) TAB PO SCH (09:00)
[2020-02-19] MEDS ORDERED: ASPI-983 PO (09:04)
[2020-02-19] MEDS ORDERED: APIX5TAB PO (09:04)
--- NOTE | 2020-02-19 09:06 | Discharge Inst-Simple/Standard ---
Discharge Inst-Standard Reconcile Patient Problems Problems Reviewed?: Yes Discharge Medications New, Converted or Re-Newed RX: Transmitted to Pharmacy Patient Instructions/Follow Up Plan of Care/Instructions/FU: the eliquis is 10mg twice daily x 6 more days, then you are to start on 5mg twice daily x 6 months. 1 wk follow up with [facility] Activity as Tolerated: Yes Discharge Diet: Avoid Fatty Foods, Low Fat/Low Cholesterol Return to The Hospital For: any concern for worsening shortness of breath, chest pain, or any concern for lifethreatening illness or injury Planned Outpatient Orders/Ref. Pneu Vac Indicated: Yes Medication List: Active Scripts Active Aspirin EC (Aspirin) 81 Mg Tablet. 81 Mg PO DAILY@0900 Eliquis (Apixaban) 5 Mg Tablet 5 Mg PO BID one pill twice daily - this RX is to start when the 10mg bid x 6 days is finished Eliquis (Apixaban) 5 Mg Tablet 10 Mg PO BID one pill twice daily x 6 more days Hydrocodone/Acetaminophen 5 MG/325 MG TAB (Hydrocodone/Acetaminophen) 1 Each Tablet 1 Tab PO Q4-6HR MDD 10 TABS 7 Days Reported [Cascara Sagrada] 450 Mg PO BID Fish Oil 1,200 mg Fish Oil (Fish Oil/Dha/Epa) 1 Each Capsule 1 Each PO DAILY Colace (Docusate Sodium) 100 Mg Capsule 100 Mg PO DAILY [Albuterol Sulfate] Unknown Strength Unknown Dose NEB DAILY Ocuvite Eye + Multi Tablet (Mv-Mn/FA/Vit K/Lycop/Lut/Zeaxa) 1 Each Tablet 1 Each PO DAILY Hair, Skin & Nails (Multivitamin with Minerals) 1 Each Tablet 1 Each PO DAILY Garlic 1,000 Mg Capsule 1,000 Mg PO BID Vitamin D3 (Cholecalciferol (Vitamin D3)) 25 Mcg Capsule 25 Mcg PO DAILY Ibuprofen 600 Mg Tablet 600 Mg PO Q6H PRN Montelukast Sodium 10 Mg Tablet 10 Mg PO DAILY Bystolic (Nebivolol HCl) 10 Mg Tab 10 Mg PO DAILY Hydrochlorothiazide 25 Mg Tablet 25 Mg PO DAILY Aspir 81 (Aspirin) 81 Mg Tablet. 3 Tab.chew PO TID Allopurinol 300 Mg Tablet 300 Mg PO DAILY Levothyroxine Sodium 175 Mcg Tablet 175 Mcg PO UD Wednesday, Wednesday, Wednesday Levothyroxine Sodium 150 Mcg Tablet 150 Mcg PO UD Wednesday, Wednesday, Wednesday, My orders: Orders - IRMA TREJO MD Apixaban Tablet (Eliquis Tablet) (02/18/20 10:45) Iron Dextran Injection (Infed Injection) (02/18/20 10:45) Iron Dextran Injection (Infed Injection) (02/18/20 10:45) Albuterol Pre-Mix Nebs (Rt) (Proventil (02/18/20 10:45) Diphenhydramine Injection (Benadryl Inje (02/18/20 10:45) Epinephrine 1 Mg Injection (Adrenalin I (02/18/20 10:45) Hydrocortisone Injection (Solu-Cortef In (02/18/20 10:45) Infed Nursing Communication Or (02/18/20 ) Ns Iv 500 Ml (Sodium Chloride 0.9%) (02/18/20 10:33) Allopurinol Tablet (Zyloprim Tablet) (02/19/20 09:00) Aspirin Enteric Coated Tablet (Ecotrin T (02/19/20 09:00) Docusate Sodium Capsule (Colace Capsule) (02/19/20 09:00) Hydrochlorothiazide Cap/Tablet (Hctz Cap (02/19/20 09:00) Montelukast Tablet (Singulair Tablet) (02/19/20 09:00) Apixaban Tablet (Eliquis Tablet) (02/25/20 09:00) Carvedilol Tablet (Coreg Tablet) (02/18/20 21:00) Levothyroxine Tablet (Synthroid Tablet) (02/19/20 06:30) Echo W Doppler/Color Flow (02/19/20 10:32) Transfer - Bed/Room/Location (02/19/20 07:32) Attending Discharge Inpt/Inobs (02/19/20 09:00) Ambulate W/O 02-Home O2 Qual (02/19/20 09:00) IRMA TREJO MD Feb 19, 2020 09:06
--- NOTE | 2020-02-19 09:07 | Discharge Summary ---
Diagnosis/Chief Complaint Date of Admission Feb 18, 2020 at 02:44 Date of Discharge Discharge Date: Feb 19, 2020 Discharge Time: 1100 Admission Diagnosis Admission Diagnosis PULMONARY EMBOLI HYPERTENSION HYPOTHYROIDISM Discharge Diagnosis PULMONARY EMBOLI HYPERTENSION HYPOTHYROIDISM Reason Hospital Visit PT REPORTS THAT SHE IS FEELING BETTER TODAY - SHE HAS BEEN INCREASINGLY SHORT OF BREATH. SHE STATES THAT SHE HAS NOT BEEN FEELING WELL FOR THE PAST FEW MONTHS AND THAT SHE BECAME INCREASINGLY SHORT OF BREATH AND HER RIGHT LEG ALSO HAS BEEN PAINFUL. SHE WAS EVALUATED IN THE ER, HAD PULMONARY EMBOLISM SCATTERED ON RIGHT AND LEFT LUNGS. DVT SCREEN ON LOWER LEG HAS BEEN NEGATIVE. Discharge Summary Discharge Physical Examination Allergies: Coded Allergies: ciprofloxacin (Verified Allergy, Severe, CHEST PAIN, 02/18/20) amoxicillin (Verified Allergy, Unknown, 02/18/20) atenolol (Verified Allergy, Unknown, 02/18/20) atorvastatin (Verified Allergy, Unknown, 02/18/20) levofloxacin (Verified Allergy, Unknown, 02/18/20) lisinopril (Verified Allergy, Unknown, 02/18/20) losartan (Verified Allergy, Unknown, 02/18/20) moxifloxacin (Verified Allergy, Unknown, UNSURE OF REACTION, 02/18/20) sulfamethoxazole (Verified Allergy, Unknown, 02/18/20) trimethoprim (Verified Allergy, Unknown, 02/18/20) Vitals & I&Os Vital Signs Date Time Temp Pulse Resp B/P (MAP) Pulse Ox O2 Delivery O2 Flow Rate FiO2 02/19/20 07:54 36.8 60 22 119/75 (90) 96 Nasal Cannula 2.00 02/19/20 07:31 28 General Appearance: Alert, Oriented X3, Cooperative, No Acute Distress HEENT: Atraumatic, PERRLA Respiratory: Clear to Auscultation, Normal Air Movement Cardiovascular: Regular Rate Abdominal: Normal Bowel Sounds, Soft Extremities: No Cyanosis, Other (slight erythema right medial lower leg at ankle and mid calf) Skin: No Rashes, No Breakdown Neuro: Cranial Nerves 3-12 NL Psych/Mental Status: Mental Status NL, Mood NL Hospital Course Was the Problem List Reviewed?: Yes PULMONARY EMBOLI HYPERTENSION HYPOTHYROIDISM PULMONARY EMBOLI - PT WS GIVEN DOSE OF LOVENOX LAST NIGHT - ELIQUIS 10MG BID X 7 DAYS THEN 5MG BID THEREAFTER X 6 MONTHS. - LAST DVT SCREEN NEGATIVE - ECHO PENDING HYPERTENSION - CONTINUE WITH HOME ANTIHYPERTENSIVES. HYPOTHYROIDISM - CONTINUE WITH LEVOTHYROXINE - MONITOR LABS Discharge Condition at discharge improved Instructions to patient/family Please see electronic discharge instructions given to patient. Discharge Medications Reviewed and agree with Discharge Medication list on patient's Discharge Instruction sheet Clinical Quality Measures DVT/VTE Risk/Contraindication: Risk Factor Score Per Nursin RFS Level Per Nursing on Admit: 4+=Very High IRMA TREJO MD Feb 19, 2020 09:07
[2020-02-19] MEDS: APIXABAN 5 MG (ELIQUIS) TABLET PO SCH (09:48)
[2020-02-19] MEDS: CARVEDILOL 12.5 MG (COREG) TABLET PO SCH (09:48)
--- NOTE | 2020-02-19 10:56 | NUR ---
PATIENT'S O2 SATURATION DROPPED TO 87% ON RA AT REST. REPLACED O2 AT 3L AND O2 SATURATIONS STAYED ABOVE 90% WITH EXERTION. Addendum: 02/19/20 at 1101 by CHET LUDWIG RT Amended: Links added.
--- NOTE | 2020-02-19 13:35 | NUR ---
CM/SS visited with the patient for discharge planning. Plan: The patient will discharge home with new oxygen. DME: The patient was provided with a patient preference form and chose [facility]. CM/SS faxed face sheet, home o2 study, script, and h&p. They will deliver the portable to hospital. Eliquis: The patient has a new Eliquis script. CM/SS printed the 30-day trail offer and provided it to patient. Patient does not qualify for the 10 dollar co-pay due to having Medicare. The patient reports her daughter Brisa will transport her home. No further needs.
[2020-02-25] MEDS ORDERED: APIXABAN 5 MG (ELIQUIS) TABLET PO SCH (09:00)
== END 2020-02-19 14:30 | disposition home or self-care (01) ==
LOC: EDUNIT# 22:49 → ER 22:51 → 4TH 02-18 02:44
PROVIDERS: ADMIT Family Medicine; ATTEND Family Medicine
DX: I26.99 Other pulmonary embolism without acute cor pulmonale (principal); I10 Essential (primary) hypertension; E03.9 Hypothyroidism, unspecified; Z88.1 Allergy status to other antibiotic agents; Z88.2 Allergy status to sulfonamides; Z88.8 Allergy status to other drugs, medicaments and biological substances; B37.3 Candidiasis of vulva and vagina; M79.604 Pain in right leg; K21.9 Gastro-esophageal reflux disease without esophagitis; M10.9 Gout, unspecified; J45.909 Unspecified asthma, uncomplicated; K59.09 Other constipation; Z79.82 Long term (current) use of aspirin; Z79.899 Other long term (current) drug therapy; Z87.01 Personal history of pneumonia (recurrent); Z79.890 Hormone replacement therapy; Z86.73 Personal history of transient ischemic attack (TIA), and cerebral infarction without residual deficits
CPT/HCPCS: 71045; 71275; 80053 ×2; 81000; 83605 ×2; 83615; 84145; 85025 ×2; 85379; 85610; 85652; 85730; 86141; 86769; 87040; 87088; 93306; 94640 ×2; 94664 ×2; 94761; 99284; G0378; U0002; 36415; 87635

== ENCOUNTER → 2020-05-10 | Outpatient (CLI) | payer MEDICARE, OTHER ==
[~2020-05-10] MED LIST changes: +APIX5TAB PO; +ASPI-1238 PO; +Cascara Sagrada PO; +FISH1CAP15 PO; -LISI1TAB25 PO; +LISI1TAB46 PO
== END ==
LOC: CARD 13:25
PROVIDERS: ATTEND Internal Medicine Interventional Cardiology
DX: I27.21 Secondary pulmonary arterial hypertension (principal); I10 Essential (primary) hypertension; I82.411 Acute embolism and thrombosis of right femoral vein; I08.1 Rheumatic disorders of both mitral and tricuspid valves
CPT/HCPCS: 93306

== ENCOUNTER → 2020-09-26 | Outpatient (CLI) | payer MEDICARE ==
[~2020-09-26] MED LIST changes: -MONT10TA26 PO; +MONT10TA32 PO; -SENN-175 PO; +SENN1TAB76 PO
--- NOTE | 2020-09-26 09:44 | Diagnostic Imaging Report ---
PROCEDURE: US Hepatic (Liver). TECHNIQUE: Multiple real-time grayscale images were obtained over the right upper quadrant in various projections. INDICATION: Elevated liver enzymes. Liver is normal in size at 17 cm. There is diffuse increased echogenicity throughout the liver consistent with hepatic steatosis. No discrete liver mass is detected. Portal vein is patent and shows normal direction of flow. Gallbladder is surgically absent. No biliary ductal dilatation is seen. The pancreas is unremarkable. The aorta in the proximal mid aspect appears normal caliber. The distal aorta is poorly visualized. IVC is patent. Right kidney is without calculi or hydronephrosis. There is no ascites. IMPRESSION: 1. Hepatic steatosis. 2. Status post cholecystectomy. Dictated by: Dictated on workstation # [id number]
== END ==
LOC: RAD 08:30
PROVIDERS: ATTEND Nurse Practitioner Family
DX: R94.5 Abnormal results of liver function studies (principal); K76.0 Fatty (change of) liver, not elsewhere classified; Z90.49 Acquired absence of other specified parts of digestive tract
CPT/HCPCS: 76705

== ENCOUNTER → 2020-11-15 | Outpatient (CLI) | payer MEDICARE ==
--- NOTE | 2020-11-15 13:09 | Diagnostic Imaging Report ---
INDICATION: Routine screening. No prior mammograms are available for comparison. 2-D and 3-D bilateral screening mammography was performed with CAD. Scattered fibroglandular densities are identified bilaterally. There is an irregular density in the upper and outer aspect of the left breast. Additional views are recommended. No other suspicious densities are seen. No malignant appearing microcalcifications are identified. Axillae are unremarkable. IMPRESSION: BI-RADS 0 Left breast density. Additional views are recommended for further evaluation. ACR BI-RADS Category 0: Incomplete. (Needs additional imaging evaluation). Result letter will be mailed to the patient. Note: At least 10% of breast cancer is not imaged by mammography. Dictated by: Dictated on workstation # [id number]
== END ==
LOC: RAD 10:24
PROVIDERS: ATTEND Nurse Practitioner Family
DX: Z12.31 Encounter for screening mammogram for malignant neoplasm of breast (principal); R92.8 Other abnormal and inconclusive findings on diagnostic imaging of breast
CPT/HCPCS: 77063; 77067

== ENCOUNTER → 2020-11-29 | Outpatient (CLI) | payer MEDICARE ==
--- NOTE | 2020-11-29 15:45 | Diagnostic Imaging Report ---
INDICATION: Left breast density. Patient presents for additional views. CORRELATION is made with recent screening study from 11/15/2020. Unilateral left 2-D and 3-D diagnostic mammography was performed. This includes spot compression CC and ML views as well as conventional 90 degree lateral views. There is mild residual density in the upper outer left breast approximately 4-5 cm from the nipple. This most likely represents fibroglandular tissue. A discrete mass is not seen. No suspicious microcalcifications are seen. IMPRESSION: BI-RADS 0 Mild residual density upper outer left breast, as described. Further evaluation with ultrasound is recommended and will be performed today. Dictated by: Dictated on workstation # [id number]
--- NOTE | 2020-11-29 16:02 | Diagnostic Imaging Report ---
INDICATION: Left breast density. CORRELATION is made with diagnostic mammogram earlier the same day and screening mammogram from 11/15/2020. Sonographic interrogation of the upper and outer aspects of the left breast was performed. No solid or cystic mass is detected. No sonographic abnormality is detected. IMPRESSION: BI-RADS Category 1 No sonographic abnormality is identified. Patient may return to routine annual screening mammography. ACR BI-RADS Category 1: Negative. Result letter will be mailed to the patient. Note: At least 10% of breast cancer is not imaged by mammography. Dictated by: Dictated on workstation # [id number]
== END ==
LOC: RAD 13:15
PROVIDERS: ATTEND Nurse Practitioner Family
DX: R92.2 Inconclusive mammogram (principal)
CPT/HCPCS: 76642; 77065; G0279

== ENCOUNTER 2020-12-17 15:10 | Emergency (ER) | payer MEDICARE ==
[~2020-12-17] VITALS: Ht 172 cm; Wt 142.0 kg
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
[2020-12-17 17:10] VITALS: BP 171/82
== END 2020-12-17 17:10 | disposition home or self-care (01) ==
LOC: EDUNIT# 15:10 → ER 15:13
DX: L76.22 Postprocedural hemorrhage of skin and subcutaneous tissue following other procedure (principal); I10 Essential (primary) hypertension; J45.909 Unspecified asthma, uncomplicated; M10.9 Gout, unspecified; E03.9 Hypothyroidism, unspecified; K59.09 Other constipation; G47.30 Sleep apnea, unspecified; Z99.89 Dependence on other enabling machines and devices; Z77.22 Contact with and (suspected) exposure to environmental tobacco smoke (acute) (chronic); Z98.890 Other specified postprocedural states; Z79.890 Hormone replacement therapy; Z79.899 Other long term (current) drug therapy; Z88.8 Allergy status to other drugs, medicaments and biological substances
CPT/HCPCS: 99284

== ENCOUNTER 2020-12-27 12:40 | Emergency (ER) | payer MEDICARE ==
[~2020-12-27] VITALS: Ht 172 cm; Wt 142.0 kg
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
[2020-12-27 13:30] VITALS: BP 154/66
== END 2020-12-27 13:32 | disposition home or self-care (01) ==
LOC: EDUNIT# 12:40 → ER 12:42
DX: L76.22 Postprocedural hemorrhage of skin and subcutaneous tissue following other procedure (principal); I10 Essential (primary) hypertension; E03.9 Hypothyroidism, unspecified; K59.09 Other constipation; J45.909 Unspecified asthma, uncomplicated; Z77.22 Contact with and (suspected) exposure to environmental tobacco smoke (acute) (chronic); Z88.0 Allergy status to penicillin; Z88.1 Allergy status to other antibiotic agents; Z88.2 Allergy status to sulfonamides; Z79.82 Long term (current) use of aspirin; Z79.890 Hormone replacement therapy; Z79.899 Other long term (current) drug therapy

== ENCOUNTER 2021-01-07 10:51 | Outpatient (RCR) | payer MEDICARE, OTHER ==
[2020-12-31 13:41] VITALS: BP 131/63
[~2021-01-07 10:51] MED LIST changes: +FERRIC CARBOXYMALTOSE INJ 750 MG in NS (IVPB) 250 ML IV SCH
[2021-01-07] MEDS ORDERED: FERRIC CARBOXYMALTOSE INJ 750 MG in NS (IVPB) 250 ML IV SCH (11:15)
[2021-01-07 11:31] VITALS: BP 127/60
== END 2021-01-07 11:40 | disposition home or self-care (01) ==
LOC: SDC 10:51
PROVIDERS: ATTEND Family Medicine
DX: D50.9 Iron deficiency anemia, unspecified (principal); D62 Acute posthemorrhagic anemia
CPT/HCPCS: 96365